=== PATIENT | female | born 1940 | race Caucasian/White ===

== ENCOUNTER 2017-01-10 10:36 | Emergency (ER) | payer MEDICARE, MEDICAID ==
[2017-01-10 10:56] VITALS: BP 123/72
--- NOTE | 2017-01-10 11:24 | EDM.PDOC ---
ED HISTORY OF PRESENT ILLNESS - General Chief Complaint: Respiratory Problem Stated Complaint: BAD COUGH Time Seen by Provider: 01/10/17 10:50 Source of Information: Reports: Patient History Limitations: Reports: No limitations - History of Present Illness INITIAL COMMENTS - FREE TEXT/NARRATIVE: Belinda presents to the emergency room today accompanied with her with complaints of a bad cough for 2 weeks. She reports she has tried guaifenesin with codeine albuterol nebulizer treatments 3 times a day and Mucinex. She reports she's had little to no relief. Her cough which she reports is croup- like cough is worse at certain times during the day usually in the morning. She denies fever or chills, denies ear pain or sore throat, feels mildly short of breath but no chest pain, palpitations or dyspnea. She denies abdominal pain, nausea vomiting, or diarrhea. Symptom Onset Date: 12/28/16 Timing/Duration: Reports: Week(s):, Constant, Gradual onset Severity: moderate Location, General: Reports: chest Quality: Reports: Ache Improves with: Reports: None Worsens with: Reports: None Associated Symptoms (General): Reports: cough w sputum, shortness of breath ( guaifenesin with codeine). Denies: fever/chills, nausea/vomiting, weakness Treatments [employer] [employer]: Reports: Other medication(s) (, albuterol nebulizers, Mucinex) - Related Data Allergies/ADRs: Allergies Allergy/AdvReac Type Severity Reaction Status Date / Time budesonide [From Pulmicort] Allergy Nausea Verified 01/10/17 10:42 cephalexin Allergy Diarrhea Verified 01/10/17 10:42 methocarbamol [From Robaxin] Allergy Rash Verified 01/10/17 10:42 nitrofurantoin Allergy Hives Verified 01/10/17 10:42 macrocrystalline [From Macrodantin] penicillin V Allergy Hives Verified 01/10/17 10:42 sulfamethoxazole Allergy Diarrhea Verified 01/10/17 10:42 [From Bactrim] trimethoprim [From Bactrim] Allergy Diarrhea Verified 01/10/17 10:42 Home Meds: Home Meds Alendronate Sodium [Fosamax] 70 mg PO WEEKLY 09/01/15 [History] Lisinopril 40 mg PO DAILY 09/01/15 [History] Phytonadione [Vitamin K] 100 mcg PO 1800 09/01/15 [History] Pravastatin [Pravachol] 20 mg PO BEDTIME 09/01/15 [History] carBAMazepine [Carbamazepine] 200 mg PO WITHBREAKFAST 09/01/15 [History] carBAMazepine [Carbamazepine] 400 mg PO BEDTIME 09/01/15 [History] Bisacodyl [Dulcolax] 5 mg PO DAILY 06/17/16 [History] Cholecalciferol (Vitamin D3) [Vitamin D3] 2,000 unit PO DAILY 06/17/16 [History] Hydrocodone/Acetaminophen [Hydrocodon-Acetaminophen 5-325] 1 each PO BID [History] Multivitamin with Minerals [Multiple Vitamin] 1 tab PO DAILY 06/17/16 [History] Warfarin [Coumadin] 7.5 mg PO ASDIRECTED 06/17/16 [History] Warfarin [Coumadin] 10 mg PO MOFR 06/17/16 [History] Albuterol Sulfate 1 ampule INH TID PRN 01/10/17 [History] Atenolol 25 mg PO 1800 01/10/17 [History] Atenolol 50 mg PO WITHBREAKFAST 01/10/17 [History] Eucalyptus/Menthol [Cough Drops] 1 lozenge PO Q1H PRN 01/10/17 [History] Iron Ps Cmplx/Vit B12/Fa [Poly-Iron 150 Forte] 1 cap PO DAILY 01/10/17 [History] guaiFENesin [Mucinex] 600 mg PO TID 01/10/17 [History] guaiFENesin/Codeine Phosphate [Guaifenesin AC Cough Syrup] 5 ml PO Q4HR PRN MDD 20 mL 01/10/17 [History] Past Medical History HEENT History: Reports: Impaired vision Cardiovascular History: Reports: Afib, High cholesterol Respiratory History: Reports: None Gastrointestinal History: Reports: Chronic constipation, GERD Genitourinary History: Reports: UTI, recurrent Neurological History: Reports: None Endocrine/Metabolic History: Reports: None Immunologic History: Reports: None Oncologic (Cancer) History: Reports: None Dermatologic History: Reports: None - Infectious Disease History Infectious Disease History: Reports: None - Past Surgical History HEENT Surgical History: Reports: Tonsillectomy Cardiovascular Surgical History: Reports: None GI Surgical History: Reports: Cholecystectomy, Colonoscopy Female Surgical History: Reports: section Musculoskeletal Surgical History: Reports: Knee replacement, Other (see below) Other Musculoskeletal Surgeries/Procedures:: left knee is due to be replaced. left knee pain with stiffness and weakness Social & Family History - Family History HEENT: Reports: None Cardiac: Reports: High cholesterol, Hypertension Respiratory: Reports: None GI: Reports: None : Reports: None OBGYN: Reports: None Musculoskeletal: Reports: None Neurological: Reports: None Psychiatric: Reports: Other (see below) (Sister had Alzheimer's) Endocrine/Metabolic: Reports: Diabetes, type II Hematologic: Reports: None Immunologic: Reports: None Dermatologic: Reports: None Oncologic: Reports: None - Tobacco Use Smoking Status *Q: Never Smoker Second Hand Smoke Exposure: No - Caffeine Use Caffeine Use: Reports: Coffee - Recreational Drug Use Recreational Drug Use: No ED ROS GENERAL - Review of Systems Review Of Systems: See Below Constitutional: Denies: fever, chills, weakness, night sweats HEENT: Reports: Glasses. Denies: Ear pain, Rhinitis, Throat pain, Throat swelling, Vertigo Respiratory: Reports: Shortness of Breath, Cough, Sputum Cardiovascular: Denies: Chest pain, Dyspnea on exertion, Edema, PND, Syncope Endocrine: Reports: high glucose GI/Abdominal: Reports: No symptoms Musculoskeletal: Reports: no symptoms Skin: Reports: no symptoms Neurological: Reports: No Symptoms Psychiatric: Reports: No symptoms Hematologic/Lymphatic: Reports: no symptoms Immunologic: Reports: no symptoms ED EXAM, GENERAL - Physical Exam Exam: See Below Exam Limited By: No limitations General Appearance: alert, no apparent distress, obese Eye Exam: bilateral eye: EOMI, PERRL Ears: normal external exam, normal canal, hearing grossly normal Ear Exam: left ear: TM normal, right ear: other (room and impaction right ear TM is not visualized) Nose: normal inspection Throat/Mouth: Normal inspection, Normal oropharynx, Normal voice, No airway compromise Head: atraumatic, normocephalic Neck: normal inspection, supple, non-tender. No: lymphadenopathy (L), lymphadenopathy (R), tender midline Respiratory/Chest: no respiratory distress, no accessory muscle use, decreased breath sounds (lung bases left), crackles (base left lung). No: stridor, retractions Cardiovascular: normal peripheral pulses, regular rate, rhythm, no murmur GI/Abdominal: normal bowel sounds, soft, non tender, no distention Back Exam: normal inspection Extremities: normal inspection, normal range of motion Neurological: alert, oriented, normal cognition Psychiatric: normal affect, normal mood Skin Exam: Warm, Dry, Intact, Normal color, No rash Course - Vital Signs Last Recorded V/S: Last Vital Signs Temp 97.2 F 01/10/17 10:53 Pulse 80 01/10/17 10:53 Resp 20 01/10/17 10:53 BP 123/72 01/10/17 10:53 Pulse Ox 95 01/10/17 10:53 - Orders/Labs/Meds Orders: Active Orders 24 hr Category Date Time Status CXR [Chest 2V] [CR] Stat Exams 01/10/17 11:14 Ordered Labs: Laboratory Tests 01/10/17 01/10/17 Range/Units 11:15 11:15 WBC 6.4 (5.0-10.0) 10^3/uL RBC 4.07 (3.80-5.50) 10^6/uL Hgb 11.8 L (12.0-16.0) g/dL Hct 36.0 L (37.0-47.0) % MCV 88.4 (82.0-92.0) fL MCH 29.0 (27.0-31.0) pg MCHC 32.8 (32.0-36.0) g/dL RDW 16.4 H (11.5-14.5) % Plt Count 230 (150-300) 10^3/uL MPV 8.2 (7.4-10.4) fL Neut % (Auto) 57.1 (50.0-70.0) % Lymph % (Auto) 11.3 L (20.0-40.0) % [place] % (Auto) 7.2 (2.0-8.0) % Eos % (Auto) 24.4 H (1.0-3.0) % Baso % (Auto) 0.0 (0.0-1.0) % Neut # (Auto) 3.6 (2.5-7.0) 10^3/uL Lymph # (Auto) 0.7 L (1.0-4.0) 10^3/uL [place] # (Auto) 0.5 (0.1-0.8) 10^3/uL Eos # (Auto) 1.6 H (0.1-0.3) 10^3/uL Baso # (Auto) 0.0 (0.0-0.1) 10^3/uL Sodium 139 (136-145) mmol/L Potassium 4.3 (3.3-5.3) mmol/L Chloride 99 (98-115) mmol/L Carbon Dioxide 28.0 (21.0-32.0) mmol/L BUN 11 (6-25) mg/dL Creatinine 0.69 (0.51-1.17) mg/dL Est Cr Clr Drug Dosing TNP Estimated GFR (MDRD) > 60 mL/min Glucose 107 (70-110) mg/dL Calcium 8.7 (8.7-10.3) mg/dL Meds: Medications Discontinued Medications Generic Name Dose Route Start Last Admin Trade Name Freq PRN Reason Stop Dose Admin Azithromycin 500 mg 01/10/17 11:55 01/10/17 12:04 Zithromax PO 01/10/17 11:56 500 mg ONETIME ONE Administration Prednisone 60 mg 01/10/17 11:54 01/10/17 12:04 Prednisone PO 01/10/17 11:55 60 mg ONETIME ONE Administration Departure - Departure Time of Disposition: 12:30 Disposition: Home, Self-Care 01 Condition: good Clinical Impression: Bronchitis Instructions: Acute Bronchitis, [id number] Forms: ED Department Discharge - My Orders Last 24 Hours: My Active Orders 01/10/17 11:14 CXR [Chest 2V] [CR] Stat - Assessment/Plan Last 24 Hours: My Active Orders 01/10/17 11:14 CXR [Chest 2V] [CR] Stat Assessment:: Bronchitis Plan: 1. Belinda been treating her symptoms now for approximately 2 weeks without significant relief with albuterol nebs Mucinex and guaifenesin with codeine, she was unable to continue the Pulmicort inhaler. We'll restart her on prednisone taper 60 mg a day, 60 mg tomorrow tapering down to 10 mg over the next 6 days. She continues to be symptomatic and I heard some mild crackles on the left lower bases will start her on azithromycin 500 mg today and she'll continue over the next 4 days with 250 mg. She may continue with her Mucinex and albuterol inhalers as needed. Recommend after completion of the course of steroids and antibiotic she followup with her primary care for recheck. Patient was discharged home.
[2017-01-10 11:48] LABS: CHLORIDE,CL 99 mmol/L (98-115); SODIUM,NA 139 mmol/L (136-145)
[2017-01-10] MEDS ORDERED: predniSONE 20 MG Tab PO ONE (11:54)
[2017-01-10] MEDS ORDERED: Azithromycin 250 MG Tab PO ONE (11:55)
== END 2017-01-10 12:28 | disposition home or self-care (01) ==
LOC: KA.ED 10:37
DX: J40 Bronchitis, not specified as acute or chronic (principal); I48.91 Unspecified atrial fibrillation; E78.00 Pure hypercholesterolemia, unspecified; K21.9 Gastro-esophageal reflux disease without esophagitis; Z98.890 Other specified postprocedural states; Z90.49 Acquired absence of other specified parts of digestive tract; Z88.1 Allergy status to other antibiotic agents; Z88.2 Allergy status to sulfonamides; Z79.899 Other long term (current) drug therapy; Z88.0 Allergy status to penicillin; Z79.01 Long term (current) use of anticoagulants; Z87.440 Personal history of urinary (tract) infections; Z88.8 Allergy status to other drugs, medicaments and biological substances
CPT/HCPCS: 36415; 71020; 80048; 85025; 99283; A9270

== ENCOUNTER 2017-01-23 09:21 | Emergency (ER) | payer MEDICARE, MEDICAID ==
[2017-01-23 09:34] VITALS: BP 133/94
--- NOTE | 2017-01-23 10:24 | EDM.PDOC ---
ED HPI LOWER BACK PAIN/INJURY - General Chief Complaint: Back Pain or Injury Stated Complaint: POSSIBLE KIDNEY STONE Time Seen by Provider: 01/23/17 10:08 Source of Information: Reports: Patient History Limitations: Reports: No limitations - History of Present Illness INITIAL COMMENTS - FREE TEXT/NARRATIVE: Patient presents with sharp low back pain that started this morning. She is concerned that it might be a kidney infection. She also has a history of tailbone fracture (6 months ago), and chronic SI joint pain. This feels like the SI joint pain but sharper than usual. She denies fever or dysuria. - Related Data Allergies/ADRs: Allergies Allergy/AdvReac Type Severity Reaction Status Date / Time budesonide [From Pulmicort] Allergy Nausea Verified 01/23/17 10:03 cephalexin Allergy Diarrhea Verified 01/23/17 10:03 methocarbamol [From Robaxin] Allergy Rash Verified 01/23/17 10:03 nitrofurantoin Allergy Hives Verified 01/23/17 10:03 macrocrystalline [From Macrodantin] penicillin V Allergy Hives Verified 01/23/17 10:03 sulfamethoxazole Allergy Diarrhea Verified 01/23/17 10:03 [From Bactrim] trimethoprim [From Bactrim] Allergy Diarrhea Verified 01/23/17 10:03 Home Meds: Home Meds Alendronate Sodium [Fosamax] 70 mg PO WEEKLY 09/01/15 [History] Lisinopril 40 mg PO DAILY 09/01/15 [History] Phytonadione [Vitamin K] 100 mcg PO 1800 09/01/15 [History] Pravastatin [Pravachol] 20 mg PO BEDTIME 09/01/15 [History] carBAMazepine [Carbamazepine] 200 mg PO WITHBREAKFAST 09/01/15 [History] carBAMazepine [Carbamazepine] 400 mg PO BEDTIME 09/01/15 [History] Bisacodyl [Dulcolax] 5 mg PO DAILY 06/17/16 [History] Cholecalciferol (Vitamin D3) [Vitamin D3] 2,000 unit PO DAILY 06/17/16 [History] Hydrocodone/Acetaminophen [Hydrocodon-Acetaminophen 5-325] 1 each PO BID [History] Multivitamin with Minerals [Multiple Vitamin] 1 tab PO DAILY 06/17/16 [History] Warfarin [Coumadin] 7.5 mg PO ASDIRECTED 06/17/16 [History] Albuterol Sulfate 1 ampule INH TID PRN 01/10/17 [History] Atenolol 25 mg PO 1800 01/10/17 [History] Atenolol 50 mg PO WITHBREAKFAST 01/10/17 [History] Eucalyptus/Menthol [Cough Drops] 1 lozenge PO Q1H PRN 01/10/17 [History] Iron Ps Cmplx/Vit B12/Fa [Poly-Iron 150 Forte] 1 cap PO DAILY 01/10/17 [History] guaiFENesin [Mucinex] 600 mg PO TID 01/10/17 [History] guaiFENesin/Codeine Phosphate [Guaifenesin AC Cough Syrup] 5 ml PO Q4HR PRN MDD 20 mL 01/10/17 [History] Past Medical History HEENT History: Reports: Impaired vision Cardiovascular History: Reports: Afib, High cholesterol Respiratory History: Reports: None Gastrointestinal History: Reports: Chronic constipation, GERD Genitourinary History: Reports: UTI, recurrent Neurological History: Reports: None Endocrine/Metabolic History: Reports: None Immunologic History: Reports: None Oncologic (Cancer) History: Reports: None Dermatologic History: Reports: None - Infectious Disease History Infectious Disease History: Reports: None - Past Surgical History HEENT Surgical History: Reports: Tonsillectomy Cardiovascular Surgical History: Reports: None GI Surgical History: Reports: Cholecystectomy, Colonoscopy Female Surgical History: Reports: section Musculoskeletal Surgical History: Reports: Knee replacement, Other (see below) Other Musculoskeletal Surgeries/Procedures:: left knee is due to be replaced. left knee pain with stiffness and weakness Social & Family History - Family History HEENT: Reports: None Cardiac: Reports: High cholesterol, Hypertension Respiratory: Reports: None GI: Reports: None : Reports: None OBGYN: Reports: None Musculoskeletal: Reports: None Neurological: Reports: None Psychiatric: Reports: Other (see below) (Sister had Alzheimer's) Endocrine/Metabolic: Reports: Diabetes, type II Hematologic: Reports: None Immunologic: Reports: None Dermatologic: Reports: None Oncologic: Reports: None - Tobacco Use Smoking Status *Q: Never Smoker Second Hand Smoke Exposure: No - Caffeine Use Caffeine Use: Reports: Coffee - Recreational Drug Use Recreational Drug Use: No ED ROS GENERAL - Review of Systems Review Of Systems: See Below Constitutional: Denies: fever, chills, diaphoresis HEENT: Denies: Throat pain, Vision change Respiratory: Denies: Shortness of Breath Cardiovascular: Denies: Chest pain, Lightheadedness, Syncope GI/Abdominal: Denies: Abdominal pain, Vomiting : Denies: dysuria, flank pain, frequency, pain, urgency Musculoskeletal: Reports: no symptoms Skin: Denies: cyanosis, jaundice, mottled, pallor, diaphoresis Neurological: Denies: Confusion, Dizziness, Headache Psychiatric: Denies: Agitation, Anxiety, Confusion ED EXAM,LOWER BACK PAIN/INJURY - Physical Exam Exam: See Below Exam Limited By: No limitations General Appearance: alert, WD/WN, no apparent distress Eye Exam: bilateral eye: EOMI, normal inspection, PERRL Ears: normal external exam, hearing grossly normal Nose: normal inspection, no blood Throat/Mouth: Normal inspection, Normal lips, Normal voice, No airway compromise Head: atraumatic, normocephalic Respiratory/Chest: no respiratory distress, lungs clear, normal breath sounds Cardiovascular: regular rate, rhythm, no murmur GI/Abdominal: soft, non tender, no organomegaly, no distention Back Exam: other (There is pain to palpation of right SI joint region only.). No: CVA tenderness (L), CVA tenderness (R), paraspinal tenderness, vertebral tenderness Neurological: alert, normal mood/affect, no motor/sensory deficits, oriented x 3 Psychiatric: normal affect, normal mood Skin Exam: Warm, Dry, Intact, Normal color, No rash Course - Vital Signs Last Recorded V/S: Last Vital Signs Temp 96.1 F 01/23/17 09:30 Pulse 68 01/23/17 09:30 Resp 16 01/23/17 09:30 BP 133/94 H 01/23/17 09:30 Pulse Ox 96 01/23/17 09:30 - Orders/Labs/Meds Labs: Laboratory Tests 01/23/17 01/23/17 01/23/17 Range/Units 09:30 10:00 10:00 WBC 6.8 (5.0-10.0) 10^3/uL RBC 4.06 (3.80-5.50) 10^6/uL Hgb 11.7 L (12.0-16.0) g/dL Hct 35.8 L (37.0-47.0) % MCV 88.3 (82.0-92.0) fL MCH 28.8 (27.0-31.0) pg MCHC 32.6 (32.0-36.0) g/dL RDW 15.6 H (11.5-14.5) % Plt Count 244 (150-300) 10^3/uL MPV 8.6 (7.4-10.4) fL Neut % (Auto) 65.7 (50.0-70.0) % Lymph % (Auto) 13.1 L (20.0-40.0) % [place] % (Auto) 9.0 H (2.0-8.0) % Eos % (Auto) 12.2 H (1.0-3.0) % Baso % (Auto) 0.0 (0.0-1.0) % Neut # (Auto) 4.5 (2.5-7.0) 10^3/uL Lymph # (Auto) 0.9 L (1.0-4.0) 10^3/uL [place] # (Auto) 0.6 (0.1-0.8) 10^3/uL Eos # (Auto) 0.8 H (0.1-0.3) 10^3/uL Baso # (Auto) 0.0 (0.0-0.1) 10^3/uL Sodium 139 (136-145) mmol/L Potassium 4.6 (3.3-5.3) mmol/L Chloride 100 (98-115) mmol/L Carbon Dioxide 27.8 (21.0-32.0) mmol/L BUN 12 (6-25) mg/dL Creatinine 0.63 (0.51-1.17) mg/dL Est Cr Clr Drug Dosing TNP Estimated GFR (MDRD) > 60 mL/min Glucose 114 H (70-110) mg/dL Calcium 9.1 (8.7-10.3) mg/dL Total Bilirubin 0.4 (0.2-1.0) mg/dL AST 20 (15-37) U/L ALT 23 (12-78) U/L Alkaline Phosphatase 105 (46-116) IU/L Total Protein 8.1 (6.4-8.2) g/dL Albumin 3.62 (3.00-4.80) g/dL Specimen Type Urinvoid Urine Color Yellow (YELLOW) Urine Appearance Clear (CLEAR) Urine pH 6.0 (5.0-9.0) Ur Specific [place] 1.015 (1.005-1.030) Urine Protein Negative (NEGATIVE) mg/dL Urine Glucose (UA) Negative (NEGATIVE) mg/dL Urine Ketones Negative (NEGATIVE) mg/dL Urine Occult Blood Trace-intact H (NEGATIVE) Urine Nitrite Negative (NEGATIVE) Urine Bilirubin Negative (NEGATIVE) Urine Urobilinogen 0.2 (0.2-1.0) E.U./dL Ur Leukocyte Esterase Trace H (NEGATIVE) Urine RBC 0-5 /HPF Urine WBC 0-5 /HPF Ur Epithelial Cells Occasional /LPF Urine Bacteria Rare (NONE TO FEW) /HPF Urine Yeast Few H (NEGATIVE) /HPF - Re-Assessments/Exams Free Text/Narrative Re-Assessment/Exam: 01/23/17 11:26 Labs are normal. Discussed findings and treatment plan with patient and her . Pt discharged in stable condition. Departure - Departure Time of Disposition: 11:23 Disposition: Home, Self-Care 01 Condition: good Clinical Impression: Chronic SI joint pain Forms: ED Department Discharge Additional Instructions: 1. Use a heating pack on the painful SI joint area with care to avoid skin burn. 2. Use your Tylenol 500-650 mg three times a day for pain as needed. 3. You can use your hydrocodone as directed for worse pain. 4. Follow up with Dr. Brandon next week if not improving to discuss SI joint injection.
[2017-01-23 10:49] LABS: CHLORIDE,CL 100 mmol/L (98-115); SODIUM,NA 139 mmol/L (136-145)
== END 2017-01-23 11:37 | disposition home or self-care (01) ==
LOC: KA.ED 09:21
DX: M53.3 Sacrococcygeal disorders, not elsewhere classified (principal); K21.9 Gastro-esophageal reflux disease without esophagitis; I48.91 Unspecified atrial fibrillation; E78.00 Pure hypercholesterolemia, unspecified; Z87.440 Personal history of urinary (tract) infections; Z96.652 Presence of left artificial knee joint; Z90.49 Acquired absence of other specified parts of digestive tract; Z88.0 Allergy status to penicillin; Z88.1 Allergy status to other antibiotic agents; Z88.8 Allergy status to other drugs, medicaments and biological substances; Z79.899 Other long term (current) drug therapy
CPT/HCPCS: 36415; 80053; 81001; 85025; 99282; 99283

== ENCOUNTER 2017-05-27 15:18 | Emergency (ER) | payer MEDICARE, MEDICAID ==
[2017-05-27 15:46] VITALS: BP 147/88
--- NOTE | 2017-05-27 15:58 | EDM.PDOC ---
ED HPI GENERAL MEDICAL PROBLEM - General Chief Complaint: General Stated Complaint: weakness Time Seen by Provider: 05/27/17 15:35 Source of Information: Reports: Patient History Limitations: Reports: No Limitations - History of Present Illness INITIAL COMMENTS - FREE TEXT/NARRATIVE: Patient presents via ambulance with weakness today. She says she has had some diarrhea for the past week and a half but only 3 times a day. This has resolved to once a day now. She is drinking 8 or more cups of water a day but says she is urinating a lot, several times a day. Today she felt weak in her legs. She uses a walker as needed but since her wasn't home she didn't want to fall so she called the ambulance. Normally she drives and could have driven in but her car has a flat tire. - Related Data Allergies Allergy/AdvReac Type Severity Reaction Status Date / Time budesonide [From Pulmicort] Allergy Nausea Verified 05/27/17 15:50 cephalexin Allergy Diarrhea Verified 05/27/17 15:50 methocarbamol [From Robaxin] Allergy Rash Verified 05/27/17 15:50 nitrofurantoin Allergy Hives Verified 05/27/17 15:50 macrocrystalline [From Macrodantin] penicillin V Allergy Hives Verified 05/27/17 15:50 sulfamethoxazole Allergy Diarrhea Verified 05/27/17 15:50 [From Bactrim] trimethoprim [From Bactrim] Allergy Diarrhea Verified 05/27/17 15:50 Home Meds: Home Meds Alendronate Sodium [Fosamax] 70 mg PO WEEKLY 09/01/15 [History] Lisinopril 40 mg PO DAILY 09/01/15 [History] Phytonadione [Vitamin K] 100 mcg PO 1800 09/01/15 [History] Pravastatin [Pravachol] 20 mg PO BEDTIME 09/01/15 [History] carBAMazepine [Carbamazepine] 200 mg PO WITHBREAKFAST 09/01/15 [History] carBAMazepine [Carbamazepine] 400 mg PO BEDTIME 09/01/15 [History] Bisacodyl [Dulcolax] 5 mg PO DAILY 06/17/16 [History] Cholecalciferol (Vitamin D3) [Vitamin D3] 2,000 unit PO DAILY 06/17/16 [History] Hydrocodone/Acetaminophen [Hydrocodon-Acetaminophen 5-325] 1 each PO BID [History] Multivitamin with Minerals [Multiple Vitamin] 1 tab PO DAILY 06/17/16 [History] Warfarin [Coumadin] 7.5 mg PO ASDIRECTED 06/17/16 [History] Albuterol Sulfate 1 ampule INH TID PRN 01/10/17 [History] Atenolol 25 mg PO 1800 01/10/17 [History] Eucalyptus/Menthol [Cough Drops] 1 lozenge PO Q1H PRN 01/10/17 [History] Iron Ps Cmplx/Vit B12/Fa [Poly-Iron 150 Forte] 1 cap PO DAILY 01/10/17 [History] Calcium Carb & Citrate/Vit D3 [Calcium + D3 ER Tablet] 1 each PO DAILY 05/27/17 [History] Fluticasone Propionate [Flonase Allergy Relief] 1 spray NASBOTH BID 05/27/17 [ History] amLODIPine [Norvasc] 10 mg PO DAILY 05/27/17 [History] Past Medical History HEENT History: Reports: Impaired Vision Cardiovascular History: Reports: Afib, High Cholesterol Respiratory History: Reports: None Gastrointestinal History: Reports: Chronic Constipation, GERD Genitourinary History: Reports: UTI, Recurrent Musculoskeletal History: Reports: Back Pain, Chronic Neurological History: Reports: None Endocrine/Metabolic History: Reports: None Immunologic History: Reports: None Oncologic (Cancer) History: Reports: None Dermatologic History: Reports: None - Infectious Disease History Infectious Disease History: Reports: None - Past Surgical History Female Surgical History: Reports: Section Musculoskeletal Surgical History: Reports: Knee Replacement, Other (See Below) Social & Family History - Family History HEENT: Reports: None Cardiac: Reports: High Cholesterol, Hypertension Respiratory: Reports: None GI: Reports: None : Reports: None OBGYN: Reports: None Musculoskeletal: Reports: None Neurological: Reports: None Psychiatric: Reports: Other (See Below) Endocrine/Metabolic: Reports: Diabetes, type II Hematologic: Reports: None Immunologic: Reports: None Dermatologic: Reports: None Oncologic: Reports: None - Tobacco Use Smoking Status *Q: Never Smoker Second Hand Smoke Exposure: No - Caffeine Use Caffeine Use: Reports: Coffee - Recreational Drug Use Recreational Drug Use: No ED ROS GENERAL - Review of Systems Review Of Systems: See Below Constitutional: Reports: Weakness. Denies: Fever, Chills, Malaise HEENT: Denies: Vision Change Respiratory: Reports: Cough (with eating when she doesn't chew well enough). Denies: Shortness of Breath Cardiovascular: Denies: Chest Pain, Lightheadedness, Syncope GI/Abdominal: Denies: Abdominal Pain, Anorexia, Nausea, Vomiting : Reports: Frequency. Denies: Dysuria, Flank Pain Musculoskeletal: Reports: No Symptoms Skin: Denies: Cyanosis, Jaundice, Mottled, Pallor, Diaphoresis Neurological: Denies: Confusion, Dizziness, Headache, Seizure, Syncope, Trouble Speaking Psychiatric: Denies: Agitation, Confusion Hematologic/Lymphatic: Reports: Easy Bleeding (she takes coumadin and stopped this two days ago per her PCP for a week so she can get an injection in her back next Wednesday.) ED EXAM, GENERAL - Physical Exam Exam: See Below Exam Limited By: No Limitations General Appearance: Alert, WD/WN, No Apparent Distress Eye Exam: Bilateral Eye: EOMI, Normal Inspection, PERRL Ears: Normal External Exam, Hearing Grossly Normal Nose: Normal Inspection, No Blood Throat/Mouth: Normal Inspection, Normal Lips, Normal Voice, No Airway Compromise Head: Atraumatic, Normocephalic Neck: Normal Inspection, Supple, Non-Tender, Full Range of Motion Respiratory/Chest: No Respiratory Distress, Crackles (mild vs atelectasis in bilat bases. This didn't clear with cough or multiple deep breaths). No: Rhonchi, Wheezing, Stridor, Accessory Muscle Use Cardiovascular: Normal Peripheral Pulses, Regular Rate, Rhythm, No Murmur Peripheral Pulses: 2+: Carotid (L), Carotid (R), Radial (L), Radial (R), Posterior Tibial (L), Posterior Tibial (R) GI/Abdominal: Normal Bowel Sounds, Soft, Non-Tender, No Organomegaly, No Distention, No Abnormal Bruit Back Exam: Normal Inspection, Full Range of Motion. No: CVA Tenderness (L), CVA Tenderness (R) Extremities: Normal Inspection, Normal Range of Motion, Non-Tender, Pedal Edema (minimal) Neurological: Alert, Oriented, Normal Cognition, No Motor/Sensory Deficits Psychiatric: Normal Affect, Normal Mood Skin Exam: Warm, Dry, Intact, Normal Color, No Rash Course - Vital Signs Last Recorded V/S: Last Vital Signs Temp 97.8 F 05/27/17 15:44 Pulse 102 H 05/27/17 15:44 Resp 18 05/27/17 15:44 BP 147/88 H 05/27/17 15:44 Pulse Ox 95 05/27/17 15:44 - Orders/Labs/Meds Orders: Active Orders 24 hr Category Date Time Status CXR [Chest 2V] [CR] Stat Exams 05/27/17 15:51 Ordered Labs: Laboratory Tests 05/27/17 05/27/17 05/27/17 Range/Units 15:30 15:35 15:35 WBC 6.0 (5.0-10.0) 10^3/uL RBC 3.71 L (3.80-5.50) 10^6/uL Hgb 11.6 L (12.0-16.0) g/dL Hct 34.6 L (37.0-47.0) % MCV 93.2 H (82.0-92.0) fL MCH 31.2 H (27.0-31.0) pg MCHC 33.4 (32.0-36.0) g/dL RDW 14.4 (11.5-14.5) % Plt Count 275 (150-300) 10^3/uL MPV 8.0 (7.4-10.4) fL Neut % (Auto) 65.4 (50.0-70.0) % Lymph % (Auto) 15.3 L (20.0-40.0) % [place] % (Auto) 10.1 H (2.0-8.0) % Eos % (Auto) 9.2 H (1.0-3.0) % Baso % (Auto) 0.0 (0.0-1.0) % Neut # (Auto) 3.9 (2.5-7.0) 10^3/uL Lymph # (Auto) 0.9 L (1.0-4.0) 10^3/uL [place] # (Auto) 0.6 (0.1-0.8) 10^3/uL Eos # (Auto) 0.6 H (0.1-0.3) 10^3/uL Baso # (Auto) 0.0 (0.0-0.1) 10^3/uL Sodium 129 L (136-145) mmol/L Potassium 4.2 (3.3-5.3) mmol/L Chloride 94 L (98-115) mmol/L Carbon Dioxide 26.1 (21.0-32.0) mmol/L BUN 7 (6-25) mg/dL Creatinine 0.61 (0.51-1.17) mg/dL Est Cr Clr Drug Dosing TNP Estimated GFR (MDRD) > 60 mL/min Glucose 102 (70-110) mg/dL Calcium 8.7 (8.7-10.3) mg/dL Specimen Type Urinvoid Urine Color Yellow (YELLOW) Urine Appearance Slightly cloudy H (CLEAR) Urine pH 6.5 (5.0-9.0) Ur Specific [place] 1.010 (1.005-1.030) Urine Protein Negative (NEGATIVE) mg/dL Urine Glucose (UA) Negative (NEGATIVE) mg/dL Urine Ketones Negative (NEGATIVE) mg/dL Urine Occult Blood Trace-lysed H (NEGATIVE) Urine Nitrite Negative (NEGATIVE) Urine Bilirubin Negative (NEGATIVE) Urine Urobilinogen 0.2 (0.2-1.0) E.U./dL Ur Leukocyte Esterase Small H (NEGATIVE) Urine RBC 0-5 /HPF Urine WBC 20-30 H /HPF Ur Epithelial Cells Few /LPF Urine Bacteria Moderate H (NONE TO FEW) /HPF - Re-Assessments/Exams Free Text/Narrative Re-Assessment/Exam: 05/27/17 16:49 CXR shows infiltrates in right lung. UA shows UTI. CBC is normal. Sodium is a little low. Discussed findings and treatment plan with patient. First dose of Levaquin given in ER and she will get someone to crab picker prescription tomorrow for her. Discussed with her that with the diarrhea and increased urination she is a little low on sodium and advised her to increase her salt intake a little for the next few days. Patient stable throughout ER course. Departure - Departure Time of Disposition: 16:53 Disposition: Home, Self-Care 01 Condition: Good Clinical Impression: UTI (urinary tract infection), bacterial CAP (community acquired pneumonia) Qualifiers: Laterality: right Lung location: unspecified part of lung Qualified Code(s): J18.9 - Pneumonia, unspecified organism - Discharge Information Forms: ED Department Discharge Additional Instructions: 1. Continue to drink 8 cups of water daily. 2. Take the Levaquin as directed. 3. Follow up with Dr. Brandon next Wednesday as scheduled, or sooner if worsening. - My Orders Last 24 Hours: My Active Orders 05/27/17 15:51 CXR [Chest 2V] [CR] Stat - Assessment/Plan Last 24 Hours: My Active Orders 05/27/17 15:51 CXR [Chest 2V] [CR] Stat
[2017-05-27 16:16] LABS: CHLORIDE,CL 94 mmol/L (98-115); SODIUM,NA 129 mmol/L (136-145)
[2017-05-27] MEDS ORDERED: Levofloxacin 500 MG Tab PO ONE (16:43)
== END 2017-05-27 18:10 | disposition home or self-care (01) ==
LOC: KA.ED 15:18
DX: J18.9 Pneumonia, unspecified organism (principal); N39.0 Urinary tract infection, site not specified; B96.89 Other specified bacterial agents as the cause of diseases classified elsewhere; H54.7 Unspecified visual loss; I48.91 Unspecified atrial fibrillation; E78.00 Pure hypercholesterolemia, unspecified; K21.9 Gastro-esophageal reflux disease without esophagitis; Z87.440 Personal history of urinary (tract) infections; Z88.8 Allergy status to other drugs, medicaments and biological substances; Z88.2 Allergy status to sulfonamides; Z88.0 Allergy status to penicillin; Z79.899 Other long term (current) drug therapy; Z96.659 Presence of unspecified artificial knee joint
CPT/HCPCS: 71020; 80048; 81001; 85025; 87086; 87088; 99284; A9270; 87186

== ENCOUNTER 2018-05-22 10:03 | Emergency (ER) | payer MEDICARE, MEDICAID ==
[2018-05-22 10:21] VITALS: BP 146/79
--- NOTE | 2018-05-22 10:43 | EDM.PDOC ---
ED HPI GENERAL MEDICAL PROBLEM - General Chief Complaint: Upper Extremity Injury/Pain Stated Complaint: RIGHT ARM PAIN Time Seen by Provider: 05/22/18 10:12 Source of Information: Reports: Patient History Limitations: Reports: No Limitations - History of Present Illness INITIAL COMMENTS - FREE TEXT/NARRATIVE: Patient is a 78-year-old female who presents to the emergency department this morning with a complaint of right forearm pain. Patient states last evening approximately 11 p.m. she went to turn a lamp on behind her and felt a pop in her forearm. Patient states that forearm pain developed. She took a hydrocodone, pain subsided and she was able to sleep during the night. Patient woke up this morning and pain, although diminished was still present. She decided to present to the emergency department for evaluation. Patient denies any chest pain, shortness of breath, headache, or fever. Onset: Sudden Onset Date: 05/21/18 Onset Time: 23:00 Duration: Hour(s): Location: Reports: Upper Extremity, Right Quality: Reports: Ache Severity: Mild Improves with: Reports: None Worsens with: Reports: Movement Context: Reports: Activity Associated Symptoms: Reports: No Other Symptoms Treatments GRANTS ANALYST: Reports: Acetaminophen, Other Medication(s), Other (see below) Other Treatments GRANTS ANALYST: heat - Related Data Allergies Allergy/AdvReac Type Severity Reaction Status Date / Time budesonide [From Pulmicort] Allergy Nausea Verified 05/22/18 10:22 cephalexin Allergy Diarrhea Verified 05/22/18 10:22 methocarbamol [From Robaxin] Allergy Rash Verified 05/22/18 10:22 nitrofurantoin Allergy Hives Verified 05/22/18 10:22 macrocrystalline [From Macrodantin] penicillin V Allergy Hives Verified 05/22/18 10:22 sulfamethoxazole Allergy Diarrhea Verified 05/22/18 10:22 [From Bactrim] trimethoprim [From Bactrim] Allergy Diarrhea Verified 05/22/18 10:22 Home Meds: Home Meds Alendronate Sodium [Fosamax] 70 mg PO WEEKLY 09/01/15 [History] Lisinopril 40 mg PO DAILY 09/01/15 [History] Phytonadione [Vitamin K] 100 mcg PO 1800 09/01/15 [History] Pravastatin [Pravachol] 20 mg PO BEDTIME 09/01/15 [History] carBAMazepine [Carbamazepine] 200 mg PO WITHBREAKFAST 09/01/15 [History] carBAMazepine [Carbamazepine] 400 mg PO BEDTIME 09/01/15 [History] Bisacodyl [Dulcolax] 5 mg PO DAILY 06/17/16 [History] Cholecalciferol (Vitamin D3) [Vitamin D3] 2,000 unit PO DAILY 06/17/16 [History] Hydrocodone/Acetaminophen [Hydrocodon-Acetaminophen 5-325] 1 each PO BID [History] Multivitamin with Minerals [Multiple Vitamin] 1 tab PO DAILY 06/17/16 [History] Warfarin [Coumadin] 7.5 mg PO ASDIRECTED 06/17/16 [History] Albuterol Sulfate 1 ampule INH TID PRN 01/10/17 [History] Atenolol 25 mg PO 1800 01/10/17 [History] Eucalyptus/Menthol [Cough Drops] 1 lozenge PO Q1H PRN 01/10/17 [History] Iron Ps Cmplx/Vit B12/Fa [Poly-Iron 150 Forte] 1 cap PO DAILY 01/10/17 [History] Calcium Carb & Citrate/Vit D3 [Calcium + D3 ER Tablet] 1 each PO DAILY 05/27/17 [History] Fluticasone Propionate [Flonase Allergy Relief] 1 spray NASBOTH BID 05/27/17 [ History] amLODIPine [Norvasc] 10 mg PO DAILY 05/27/17 [History] Past Medical History HEENT History: Reports: Impaired Vision Cardiovascular History: Reports: Afib, High Cholesterol Respiratory History: Reports: None Gastrointestinal History: Reports: Chronic Constipation, GERD Genitourinary History: Reports: UTI, Recurrent Musculoskeletal History: Reports: Back Pain, Chronic Neurological History: Reports: None Endocrine/Metabolic History: Reports: None Hematologic History: Reports: Iron Deficiency Immunologic History: Reports: None Oncologic (Cancer) History: Reports: None Dermatologic History: Reports: None - Infectious Disease History Infectious Disease History: Reports: None - Past Surgical History Head Surgeries/Procedures: Reports: None Female Surgical History: Reports: Section Musculoskeletal Surgical History: Reports: Knee Replacement, Other (See Below) Social & Family History - Family History HEENT: Reports: None Cardiac: Reports: High Cholesterol, Hypertension Respiratory: Reports: None GI: Reports: None : Reports: None OBGYN: Reports: None Musculoskeletal: Reports: None Neurological: Reports: None Psychiatric: Reports: Other (See Below) Endocrine/Metabolic: Reports: Diabetes, type II Hematologic: Reports: None Immunologic: Reports: None Dermatologic: Reports: None Oncologic: Reports: None - Tobacco Use Smoking Status *Q: Former Smoker Used Tobacco, but Quit: Yes Month/Year Tobacco Last Used: February Second Hand Smoke Exposure: No - Caffeine Use Caffeine Use: Reports: Coffee - Recreational Drug Use Recreational Drug Use: No Review of Systems - Review of Systems Review Of Systems: ROS reveals no pertinent complaints other than HPI. Constitutional: Reports: No Symptoms Eyes: Reports: No Symptoms Ears: Reports: No Symptoms Nose: Reports: No Symptoms Mouth/Throat: Reports: No Symptoms Respiratory: Reports: No Symptoms Cardiovascular: Reports: No Symptoms GI/Abdominal: Reports: No Symptoms Genitourinary: Reports: No Symptoms Musculoskeletal: Reports: Arm Pain (Right forearm) Skin: Reports: No Symptoms Neurological: Reports: No Symptoms Psychiatric: Reports: No Symptoms ED EXAM, GENERAL - Physical Exam Exam: See Below Exam Limited By: No Limitations General Appearance: Alert, WD/WN, No Apparent Distress Throat/Mouth: Normal Inspection, Normal Oropharynx, No Airway Compromise Head: Atraumatic, Normocephalic Neck: Normal Inspection, Supple, Non-Tender Respiratory/Chest: No Respiratory Distress Back Exam: Normal Inspection Extremities: Other (Right forearm, proximal aspect tenderness to palpation, and range of motion. No elbow or wrist involvement, no ecchymosis, no edema, and no deformity.) Neurological: Alert, Oriented, Normal Cognition Psychiatric: Normal Affect, Normal Mood Skin Exam: Warm, Dry, Intact, Normal Color, No Rash Course - Vital Signs Last Recorded V/S: Last Vital Signs Temp 96.9 F 05/22/18 10:18 Pulse 79 05/22/18 10:18 Resp 20 05/22/18 10:18 BP 146/79 H 05/22/18 10:18 Pulse Ox 98 05/22/18 10:18 Departure - Departure Time of Disposition: 10:45 Disposition: Home, Self-Care 01 Condition: Good Clinical Impression: Muscle strain of right forearm Qualifiers: Encounter type: initial encounter Qualified Code(s): S56.911A - Strain of unspecified muscles, fascia and tendons at forearm level, right arm, initial encounter - Discharge Information Instructions: Muscle Strain, [id number], Muscle Strain Referrals: Adonis Zuniga, BRENDA [Primary Care Provider] - Forms: ED Department Discharge Additional Instructions: Follow-up with PCP. Return to emergency sooner if symptoms continue or worsen. - Assessment/Plan Assessment:: Right forearm muscle strain Plan: Follow-up with PCP
== END 2018-05-22 11:00 | disposition home or self-care (01) ==
LOC: KA.ED 10:03
DX: S56.911A Strain of unspecified muscles, fascia and tendons at forearm level, right arm, initial encounter (principal); Z79.899 Other long term (current) drug therapy; Z88.0 Allergy status to penicillin; Z88.1 Allergy status to other antibiotic agents; Z88.8 Allergy status to other drugs, medicaments and biological substances; X58.XXXA Exposure to other specified factors, initial encounter
CPT/HCPCS: 99283

== ENCOUNTER 2018-10-29 10:07 | Emergency (ER) | payer MEDICARE, MEDICAID ==
[2018-10-29 10:18] VITALS: BP 127/69
--- NOTE | 2018-10-29 10:53 | EDM.PDOC ---
ED HPI GENERAL MEDICAL PROBLEM - General Chief Complaint: General Stated Complaint: BAD COUGH Time Seen by Provider: 10/29/18 10:32 Source of Information: Reports: Patient History Limitations: Reports: No Limitations - History of Present Illness INITIAL COMMENTS - FREE TEXT/NARRATIVE: Patient is a 78-year-old female who presents to the emergency department this morning with a complaint of persistent cough. States that cough is been going on for approximately a week and getting worse. Feels a little short of breath. Patient did not take temperature, but does feel like she's had a fever. States cough is nonproductive. Patient denies chest pain, nausea, vomiting, diarrhea, or family members with similar symptoms. Onset: Gradual Duration: Day(s): Location: Reports: Chest Quality: Reports: Other (Denies chest pain) Improves with: Reports: None Worsens with: Reports: Other (Cough) Associated Symptoms: Reports: Cough, Fever/Chills. Denies: Chest Pain, cough w sputum, Nausea/Vomiting, Shortness of Breath Treatments GLASSIE: Reports: Acetaminophen, Other (see below) Other Treatments GLASSIE: cough medicine - Related Data Allergies Allergy/AdvReac Type Severity Reaction Status Date / Time budesonide [From Pulmicort] Allergy Nausea Verified 05/22/18 10:22 cephalexin Allergy Diarrhea Verified 05/22/18 10:22 methocarbamol [From Robaxin] Allergy Rash Verified 05/22/18 10:22 nitrofurantoin Allergy Hives Verified 05/22/18 10:22 macrocrystalline [From Macrodantin] penicillin V Allergy Hives Verified 05/22/18 10:22 sulfamethoxazole Allergy Diarrhea Verified 05/22/18 10:22 [From Bactrim] trimethoprim [From Bactrim] Allergy Diarrhea Verified 05/22/18 10:22 Home Meds: Home Meds Alendronate Sodium [Fosamax] 70 mg PO WEEKLY 09/01/15 [History] Lisinopril 40 mg PO DAILY 09/01/15 [History] Phytonadione [Vitamin K] 100 mcg PO 1800 09/01/15 [History] Pravastatin [Pravachol] 20 mg PO BEDTIME 09/01/15 [History] carBAMazepine [Carbamazepine] 200 mg PO WITHBREAKFAST 09/01/15 [History] carBAMazepine [Carbamazepine] 400 mg PO BEDTIME 11/22/15 [History] Bisacodyl [Dulcolax] 5 mg PO DAILY 06/17/16 [History] Cholecalciferol (Vitamin D3) [Vitamin D3] 2,000 unit PO DAILY 06/17/16 [History] Hydrocodone/Acetaminophen [Hydrocodon-Acetaminophen 5-325] 1 each PO BID [History] Multivitamin with Minerals [Multiple Vitamin] 1 tab PO DAILY 06/17/16 [History] Warfarin [Coumadin] 7.5 mg PO ASDIRECTED 06/17/16 [History] Albuterol Sulfate 1 ampule INH TID PRN 01/10/17 [History] Atenolol 25 mg PO 1800 01/10/17 [History] Eucalyptus/Menthol [Cough Drops] 1 lozenge PO Q1H PRN 01/10/17 [History] Iron Ps Cmplx/Vit B12/Fa [Poly-Iron 150 Forte] 1 cap PO DAILY 01/10/17 [History] Calcium Carb & Citrate/Vit D3 [Calcium + D3 ER Tablet] 1 each PO DAILY 05/27/17 [History] Fluticasone Propionate [Flonase Allergy Relief] 1 spray NASBOTH BID 05/27/17 [ History] amLODIPine [Norvasc] 10 mg PO DAILY 05/27/17 [History] Past Medical History HEENT History: Reports: Impaired Vision Cardiovascular History: Reports: Afib, High Cholesterol Respiratory History: Reports: None Gastrointestinal History: Reports: Chronic Constipation, GERD Genitourinary History: Reports: UTI, Recurrent Musculoskeletal History: Reports: Back Pain, Chronic Neurological History: Reports: None Endocrine/Metabolic History: Reports: None Hematologic History: Reports: Iron Deficiency Immunologic History: Reports: None Oncologic (Cancer) History: Reports: None Dermatologic History: Reports: None - Infectious Disease History Infectious Disease History: Reports: None - Past Surgical History Head Surgeries/Procedures: Reports: None Female Surgical History: Reports: Section Musculoskeletal Surgical History: Reports: Knee Replacement, Other (See Below) Social & Family History - Family History HEENT: Reports: None Cardiac: Reports: High Cholesterol, Hypertension Respiratory: Reports: None GI: Reports: None : Reports: None OBGYN: Reports: None Musculoskeletal: Reports: None Neurological: Reports: None Psychiatric: Reports: Other (See Below) Endocrine/Metabolic: Reports: Diabetes, type II Hematologic: Reports: None Immunologic: Reports: None Dermatologic: Reports: None Oncologic: Reports: None - Caffeine Use Caffeine Use: Reports: Coffee ED ROS GENERAL - Review of Systems Review Of Systems: ROS reveals no pertinent complaints other than HPI. Constitutional: Reports: Fever, Chills HEENT: Reports: No Symptoms Respiratory: Reports: Shortness of Breath, Cough Cardiovascular: Reports: No Symptoms Endocrine: Reports: No Symptoms GI/Abdominal: Reports: No Symptoms : Reports: No Symptoms Musculoskeletal: Reports: No Symptoms Skin: Reports: No Symptoms Neurological: Reports: No Symptoms Psychiatric: Reports: No Symptoms Hematologic/Lymphatic: Reports: No Symptoms Immunologic: Reports: No Symptoms ED EXAM, GENERAL - Physical Exam Exam: See Below Exam Limited By: No Limitations General Appearance: Alert, WD/WN, No Apparent Distress Nose: Normal Inspection, Other (Mild bilateral mucosal erythema) Throat/Mouth: Normal Inspection, Normal Oropharynx, No Airway Compromise Head: Atraumatic, Normocephalic Neck: Normal Inspection, Supple, Non-Tender Respiratory/Chest: No Respiratory Distress, No Accessory Muscle Use, Chest Non- Tender, Rhonchi (Apical clears with cough) Cardiovascular: Regular Rate, Rhythm, No Murmur GI/Abdominal: Normal Bowel Sounds, Soft, Non-Tender Back Exam: Normal Inspection. No: CVA Tenderness (L), CVA Tenderness (R) Extremities: Normal Inspection, No Pedal Edema Neurological: Alert, Oriented, Normal Cognition Psychiatric: Normal Affect, Normal Mood Skin Exam: Warm, Dry, Intact, Normal Color, No Rash Lymphatic: No Adenopathy Course - Vital Signs Last Recorded V/S: Last Vital Signs Temp 97.6 F 10/29/18 10:15 Pulse 81 10/29/18 10:15 Resp 20 10/29/18 10:15 BP 127/69 10/29/18 10:15 Pulse Ox 94 L 10/29/18 10:15 - Orders/Labs/Meds Orders: Active Orders 24 hr Category Date Time Status Chest 2V [CR] Stat Exams 10/29/18 10:32 Ordered INFLUENZA A+B AG SCREEN [RM] Stat Lab 10/29/18 10:32 Ordered - Radiology Interpretation Free Text/Narrative:: Chest x-ray shows Right upper lobe pneumonia - Re-Assessments/Exams Free Text/Narrative Re-Assessment/Exam: 10/29/18 11:39 Patient afebrile, vital signs stable, influenza negative. patient given 1 g IM Rocephin and 500 mg Zithromax here. Patient will follow-up with PCP on Wednesday. 10/29/18 11:41 Departure - Departure Time of Disposition: 11:40 Disposition: Home, Self-Care 01 Condition: Good Clinical Impression: CAP (community acquired pneumonia) Qualifiers: Laterality: right Lung location: unspecified part of lung Qualified Code(s): J18.9 - Pneumonia, unspecified organism - Discharge Information Instructions: Community-Acquired Pneumonia, Adult, [id number] Referrals: Adonis Zuniga PA-C [Primary Care Provider] - Additional Instructions: Follow-up at [facility] on Wednesday. Take medication as prescribed. Return to the emergency department sooner if symptoms continue or worsen. - My Orders Last 24 Hours: My Active Orders 10/29/18 10:32 Chest 2V [CR] Stat INFLUENZA A+B AG SCREEN [RM] Stat - Assessment/Plan Last 24 Hours: My Active Orders 10/29/18 10:32 Chest 2V [CR] Stat INFLUENZA A+B AG SCREEN [RM] Stat Assessment:: Pneumonia Plan: Follow-up with PCP on Wednesday
--- NOTE | 2018-10-29 11:17 | CR ---
[id number] RAD/RAD Chest PA And Lateral EXAM: FRONTAL AND LATERAL CHEST INDICATION: Upper respiratory infection and weakness. COMPARISON: May 27, 2017. DISCUSSION: There is cardiomegaly with mild central vascular congestion which is less than on the previous examination. Mild superimposed infiltrates are suggested in the right upper lobe. IMPRESSION: 1. Mild residual or recurrent right upper lobe infiltrates. 2. Mild congestive heart failure. Jg Keating MD 10/29/18 1116 Thank you for allowing us to participate in the care of your patient.
[2018-10-29] MEDS ORDERED: Azithromycin 250 MG Tab PO ONE ×2 (11:36→11:37)
[2018-10-29] MEDS ORDERED: cefTRIAXone 1 GM Vial IM ONE (11:36)
[2018-10-29] MEDS ORDERED: Lidocaine 1% 20 ML MDV ONE (11:47)
== END 2018-10-29 12:10 | disposition home or self-care (01) ==
LOC: KA.ED 10:07
DX: J18.9 Pneumonia, unspecified organism (principal); I48.91 Unspecified atrial fibrillation; E78.00 Pure hypercholesterolemia, unspecified; K21.9 Gastro-esophageal reflux disease without esophagitis; Z87.440 Personal history of urinary (tract) infections; Z79.01 Long term (current) use of anticoagulants; Z79.899 Other long term (current) drug therapy; Z96.659 Presence of unspecified artificial knee joint; Z98.890 Other specified postprocedural states
CPT/HCPCS: 71046; 87804; 96372; 99284; A9270-GY; J0696

== ENCOUNTER 2019-03-19 09:28 | Emergency (ER) | payer MEDICARE, MEDICAID ==
[2019-03-19 10:05] VITALS: BP 171/93
--- NOTE | 2019-03-19 10:54 | EDM.PDOC ---
ED HPI GENERAL MEDICAL PROBLEM - General Chief Complaint: Upper Extremity Injury/Pain Stated Complaint: LEFT ARM INJURY Time Seen by Provider: 03/19/19 10:27 Source of Information: Reports: Patient, Significant Other History Limitations: Reports: No Limitations - History of Present Illness INITIAL COMMENTS - FREE TEXT/NARRATIVE: Patient presents with left elbow pain for the past several days. She denies any fall or other injury. She saw her PCP, RACHELLE Smith 3 days ago and was given Diclofenac tabs and gel for it. It hurt quite badly today so she came in. Left Elbow Pain Score (Numeric/FACES): 5 - Related Data Allergies Allergy/AdvReac Type Severity Reaction Status Date / Time budesonide [From Pulmicort] Allergy Nausea Verified 03/19/19 09:56 cephalexin Allergy Diarrhea Verified 03/19/19 09:56 methocarbamol [From Robaxin] Allergy Rash Verified 03/19/19 09:56 nitrofurantoin Allergy Hives Verified 03/19/19 09:56 macrocrystalline [From Macrodantin] penicillin V Allergy Hives Verified 03/19/19 09:56 sulfamethoxazole Allergy Diarrhea Verified 03/19/19 09:56 [From Bactrim] trimethoprim [From Bactrim] Allergy Diarrhea Verified 03/19/19 09:56 Home Meds: Home Meds Alendronate Sodium [Fosamax] 70 mg PO WEEKLY 09/01/15 [History] Phytonadione [Vitamin K] 100 mcg PO 1800 09/01/15 [History] Pravastatin [Pravachol] 20 mg PO BEDTIME 09/01/15 [History] carBAMazepine [Carbamazepine] 200 mg PO WITHBREAKFAST 09/01/15 [History] carBAMazepine [Carbamazepine] 400 mg PO BEDTIME 09/01/15 [History] Bisacodyl [Dulcolax] 5 mg PO DAILY 06/17/16 [History] Cholecalciferol (Vitamin D3) [Vitamin D3] 2,000 unit PO DAILY 06/17/16 [History] Multivitamin with Minerals [Multiple Vitamin] 1 tab PO DAILY 06/17/16 [History] Warfarin [Coumadin] 7.5 mg PO ASDIRECTED 06/17/16 [History] Albuterol Sulfate 1 ampule INH TID PRN 01/10/17 [History] Atenolol 25 mg PO 1800 01/10/17 [History] Iron Ps Cmplx/Vit B12/Fa [Poly-Iron 150 Forte] 1 cap PO DAILY 01/10/17 [History] Calcium Carb & Citrate/Vit D3 [Calcium + D3 ER Tablet] 1 each PO DAILY 05/27/17 [History] Fluticasone Propionate [Flonase Allergy Relief] 1 spray NASBOTH BID 05/27/17 [ History] amLODIPine [Norvasc] 10 mg PO DAILY 05/27/17 [History] Diclofenac Sodium [Voltaren 1% Gel] 1 applic TOP BID 03/19/19 [History] Diclofenac Sodium [Voltaren] 75 mg PO BIDMEALS 03/19/19 [History] Losartan [Cozaar] 100 mg PO DAILY 03/19/19 [History] Past Medical History HEENT History: Reports: Impaired Vision Cardiovascular History: Reports: Afib, High Cholesterol Respiratory History: Reports: Asthma Gastrointestinal History: Reports: Chronic Constipation, GERD Genitourinary History: Reports: UTI, Recurrent Musculoskeletal History: Reports: Arthritis, Back Pain, Chronic Neurological History: Reports: None Endocrine/Metabolic History: Reports: None Hematologic History: Reports: Iron Deficiency Immunologic History: Reports: None Oncologic (Cancer) History: Reports: None Dermatologic History: Reports: None - Infectious Disease History Infectious Disease History: Reports: None - Past Surgical History Head Surgeries/Procedures: Reports: None Female Surgical History: Reports: Section Musculoskeletal Surgical History: Reports: Knee Replacement Social & Family History - Family History HEENT: Reports: None Cardiac: Reports: High Cholesterol, Hypertension Respiratory: Reports: None GI: Reports: None : Reports: None OBGYN: Reports: None Musculoskeletal: Reports: None Neurological: Reports: None Psychiatric: Reports: Other (See Below) Endocrine/Metabolic: Reports: Diabetes, type II Hematologic: Reports: None Immunologic: Reports: None Dermatologic: Reports: None Oncologic: Reports: None - Tobacco Use Smoking Status *Q: Never Smoker - Caffeine Use Caffeine Use: Reports: Coffee, Soda - Recreational Drug Use Recreational Drug Use: No Review of Systems - Review of Systems Review Of Systems: See Below Constitutional: Denies: Chills, Fever, Weakness Eyes: Denies: Vision Change Ears: Reports: No Symptoms Nose: Reports: No Symptoms Mouth/Throat: Reports: No Symptoms Respiratory: Denies: Shortness of Breath, Cough Cardiovascular: Reports: Irregular Heart Rate (chronic; on warfarin). Denies: Chest Pain, Lightheadedness, Syncope GI/Abdominal: Denies: Abdominal Pain, Diarrhea, Nausea, Vomiting Genitourinary: Denies: Dysuria Musculoskeletal: Denies: Neck Pain, Shoulder Pain, Hand Pain Skin: Denies: Cyanosis, Jaundice, Mottled, Pallor, Diaphoresis Neurological: Denies: Confusion, Seizure, Syncope, Trouble Speaking Psychiatric: Denies: Confusion ED EXAM, GENERAL - Physical Exam Exam: See Below Exam Limited By: No Limitations General Appearance: Alert, WD/WN, No Apparent Distress Eye Exam: Bilateral Eye: EOMI, Normal Inspection, PERRL Ears: Normal External Exam, Hearing Grossly Normal Nose: Normal Inspection, No Blood Throat/Mouth: Normal Inspection, Normal Lips, Normal Voice, No Airway Compromise Head: Atraumatic, Normocephalic Neck: Normal Inspection, Full Range of Motion Respiratory/Chest: No Respiratory Distress, Lungs Clear, Normal Breath Sounds, No Accessory Muscle Use Cardiovascular: Irregularly Irregular GI/Abdominal: Non-Tender Back Exam: Normal Inspection, Full Range of Motion. No: CVA Tenderness (L), CVA Tenderness (R) Extremities: Normal Range of Motion (without pain), Other (palpation of lateral elbow produces pain at the triceps insertion consistent with tendonitis. No other tender areas, crepitus or deformity.). No: Increased Warmth, Mottled, Pallor, Redness Neurological: Alert, Oriented, Normal Cognition (at baseline), No Motor/Sensory Deficits Psychiatric: Normal Affect, Normal Mood Skin Exam: Warm, Dry, Intact, Normal Color, No Rash Course - Vital Signs Last Recorded V/S: Last Vital Signs Temp 97.8 F 03/19/19 09:45 Pulse 76 03/19/19 09:45 Resp 16 03/19/19 09:45 BP 171/93 H 03/19/19 09:45 Pulse Ox 94 L 03/19/19 09:45 - Re-Assessments/Exams Free Text/Narrative Re-Assessment/Exam: 03/19/19 11:01 Discussed findings and recommendations with patient. She is receptive and agrees. Discharged to home in stable condition. Departure - Departure Time of Disposition: 10:45 Disposition: Home, Self-Care 01 Condition: Good Clinical Impression: Elbow tendonitis - Discharge Information Instructions: Tendinitis, [id number] Referrals: Adonis Zuniga PA-C [Primary Care Provider] - Additional Instructions: 1. Continue the medications Adonis More gave you. 2. You can try alternating warm and cold packs twice a day on the elbow. Make sure not to put a hot pack directly on the skin. 3. Try elbow flexion and extension (range of motion) exercises 20-30 cycles about 3 times a day to keep the elbow mobile and loosened up. 4. Try to avoid resting the elbow on armrests for long periods of time. 5. Follow up with Adonis in a week if not improving.
== END 2019-03-19 10:55 | disposition home or self-care (01) ==
LOC: KA.ED 09:28
DX: M77.9 Enthesopathy, unspecified (principal); I48.91 Unspecified atrial fibrillation; E78.00 Pure hypercholesterolemia, unspecified; J45.909 Unspecified asthma, uncomplicated; Z79.899 Other long term (current) drug therapy; Z88.8 Allergy status to other drugs, medicaments and biological substances; Z88.0 Allergy status to penicillin; Z88.1 Allergy status to other antibiotic agents
CPT/HCPCS: 99283

== ENCOUNTER 2019-03-26 10:04 | Emergency (ER) | payer MEDICARE, MEDICAID ==
[2019-03-26 10:31] VITALS: BP 144/88
--- NOTE | 2019-03-26 10:45 | EDM.PDOC ---
ED HPI GENERAL MEDICAL PROBLEM - General Chief Complaint: Upper Extremity Injury/Pain Stated Complaint: left elbow pain Time Seen by Provider: 03/26/19 10:15 Source of Information: Reports: Patient, Family, Other ( jose) - History of Present Illness INITIAL COMMENTS - FREE TEXT/NARRATIVE: patient presents for left elbow pain that is intermittent for one month. No recent fall or trauma. She admits she carried a very heavy grocery bag on her left elbow approximately one month right before she started all of this left pain. She states the pain is sharp and starts at her elbow and shoots up and down her arm at times. She notes having hx of osteoporosis and osteoarthritis with hx of right total knee replacement and she states she needs her left shoulder replaced but the orthopedic surgeon said she is not a candidate at this time for shoulder surgery. She states the pain is worse at night time, she has seen her PCP for this, was given NSAIDs topical and oral and she has been seeing PT in town which seems to be really helping her pain. left elbow Pain Score (Numeric/FACES): 5 - Related Data Allergies Allergy/AdvReac Type Severity Reaction Status Date / Time budesonide [From Pulmicort] Allergy Nausea Verified 03/26/19 10:07 cephalexin Allergy Diarrhea Verified 03/26/19 10:07 methocarbamol [From Robaxin] Allergy Rash Verified 03/26/19 10:07 nitrofurantoin Allergy Hives Verified 03/26/19 10:07 macrocrystalline [From Macrodantin] penicillin V Allergy Hives Verified 03/26/19 10:07 sulfamethoxazole Allergy Diarrhea Verified 03/26/19 10:07 [From Bactrim] trimethoprim [From Bactrim] Allergy Diarrhea Verified 03/26/19 10:07 Home Meds: Home Meds Alendronate Sodium [Fosamax] 70 mg PO WEEKLY 09/01/15 [History] Phytonadione [Vitamin K] 100 mcg PO 1800 09/01/15 [History] Pravastatin [Pravachol] 20 mg PO BEDTIME 09/01/15 [History] carBAMazepine [Carbamazepine] 200 mg PO WITHBREAKFAST 09/01/15 [History] carBAMazepine [Carbamazepine] 400 mg PO BEDTIME 09/01/15 [History] Bisacodyl [Dulcolax] 5 mg PO DAILY 06/17/16 [History] Cholecalciferol (Vitamin D3) [Vitamin D3] 2,000 unit PO DAILY 06/17/16 [History] Multivitamin with Minerals [Multiple Vitamin] 1 tab PO DAILY 06/17/16 [History] Warfarin [Coumadin] 7.5 mg PO ASDIRECTED 06/17/16 [History] Albuterol Sulfate 1 ampule INH TID PRN 01/10/17 [History] Atenolol 25 mg PO 1800 01/10/17 [History] Iron Ps Cmplx/Vit B12/Fa [Poly-Iron 150 Forte] 1 cap PO DAILY 01/10/17 [History] Calcium Carb & Citrate/Vit D3 [Calcium + D3 ER Tablet] 1 each PO DAILY 05/27/17 [History] Fluticasone Propionate [Flonase Allergy Relief] 1 spray NASBOTH BID 05/27/17 [ History] amLODIPine [Norvasc] 10 mg PO DAILY 05/27/17 [History] Diclofenac Sodium [Voltaren 1% Gel] 1 applic TOP BID 03/19/19 [History] Diclofenac Sodium [Voltaren] 75 mg PO BIDMEALS 03/19/19 [History] Losartan [Cozaar] 100 mg PO DAILY 03/19/19 [History] Past Medical History HEENT History: Reports: Impaired Vision Cardiovascular History: Reports: Afib, High Cholesterol Respiratory History: Reports: Asthma Gastrointestinal History: Reports: Chronic Constipation, GERD Genitourinary History: Reports: UTI, Recurrent Musculoskeletal History: Reports: Arthritis, Back Pain, Chronic Neurological History: Reports: None Endocrine/Metabolic History: Reports: None Hematologic History: Reports: Iron Deficiency Immunologic History: Reports: None Oncologic (Cancer) History: Reports: None Dermatologic History: Reports: None - Infectious Disease History Infectious Disease History: Reports: None - Past Surgical History Head Surgeries/Procedures: Reports: None Female Surgical History: Reports: Section Musculoskeletal Surgical History: Reports: Knee Replacement Social & Family History - Family History HEENT: Reports: None Cardiac: Reports: High Cholesterol, Hypertension Respiratory: Reports: None GI: Reports: None : Reports: None OBGYN: Reports: None Musculoskeletal: Reports: None Neurological: Reports: None Psychiatric: Reports: Other (See Below) Endocrine/Metabolic: Reports: Diabetes, type II Hematologic: Reports: None Immunologic: Reports: None Dermatologic: Reports: None Oncologic: Reports: None - Tobacco Use Smoking Status *Q: Never Smoker Second Hand Smoke Exposure: No - Caffeine Use Caffeine Use: Reports: Coffee, Soda - Recreational Drug Use Recreational Drug Use: No Review of Systems - Review of Systems Review Of Systems: ROS reveals no pertinent complaints other than HPI. Musculoskeletal: Reports: Other (left elbow pain) ED EXAM, GENERAL - Physical Exam Exam: See Below (left elbow, full ROM w/o pain, no crepitus, not warmth not swollen, no redness) Exam Limited By: No Limitations General Appearance: Alert, WD/WN, No Apparent Distress Head: Atraumatic, Normocephalic Neck: Normal Inspection, Supple, Non-Tender Respiratory/Chest: No Respiratory Distress, Lungs Clear, Normal Breath Sounds Cardiovascular: Normal Peripheral Pulses, Irregularly Irregular, Other (hx of a fib) Peripheral Pulses: 2+: Radial (L), Radial (R) GI/Abdominal: Normal Bowel Sounds, Soft Back Exam: Normal Inspection, Full Range of Motion Extremities: Normal Inspection, Normal Range of Motion, Non-Tender, Normal Capillary Refill Neurological: Alert, Oriented Skin Exam: Warm, Dry, Intact, Normal Color Course - Vital Signs Text/Narrative:: There has not been an xray completed. this is her second visit with left elbow pain, full ROM w/o pain on exam, no systemic symptoms, not septic arthritis, no swelling, no redness, no warmth. Patient and her spouse basically request x-ray to due this left elbow pain, which I provided them an xray to reassure no underlying fracture. Patient used her bilateral arms to push her self back in the bed, when she has a conversation describing her medical hx and current complaint, patient uses her left arm and full moves elbow w/o difficultly when walking. Continue with PCP recommendations (RICE, NSAIDs, and PT). Last Recorded V/S: Last Vital Signs Temp 97.1 F 03/26/19 10:08 Pulse 78 03/26/19 10:08 Resp 18 03/26/19 10:08 BP 144/88 H 03/26/19 10:08 Pulse Ox 94 L 03/26/19 10:08 - Orders/Labs/Meds Orders: Active Orders 24 hr Category Date Time Status Elbow Min 3V Lt [CR] Stat Exams 03/26/19 10:22 Taken Departure - Departure Time of Disposition: 11:03 Disposition: Home, Self-Care 01 Condition: Good Clinical Impression: Left elbow pain - Discharge Information *PRESCRIPTION DRUG MONITORING PROGRAM REVIEWED*: Not Applicable *COPY OF PRESCRIPTION DRUG MONITORING REPORT IN PATIENT HORACIO: Not Applicable Instructions: Joint Pain Forms: ED Department Discharge Additional Instructions: continue with PCP instructions with home pain medications and continue with Physical therapy as schedule next week. Avoid lifting heavy objects with it. - My Orders Last 24 Hours: My Active Orders 03/26/19 10:22 Elbow Min 3V Lt [CR] Stat - Assessment/Plan Last 24 Hours: My Active Orders 03/26/19 10:22 Elbow Min 3V Lt [CR] Stat
--- NOTE | 2019-03-26 11:15 | CR ---
[id number] RAD/RAD Elbow Left 3V Min Exam: RAD Elbow Left 3V Min Indication:PAIN, LIMITED MOVEMENT. Comparison: No prior imaging for comparison. Discussion: Anterior fat-pad is slightly elevated, which is nonspecific but can be seen with a small effusion. Osteoarthritis of the ulnotrochlear and radiocapitellar compartments with joint space narrowing. Linear lucency in the subcortical region of the lateral humeral epicondyle, seen on only one view, likely artifact from overlapping osseous cortical surfaces. If there is concern for a lateral epicondyle fracture, CT is recommended. Impression: As above. Deyvi Tan MD 03/26/19 1114 Thank you for allowing us to participate in the care of your patient.
== END 2019-03-26 11:20 | disposition home or self-care (01) ==
LOC: KA.ED 10:04
DX: M25.522 Pain in left elbow (principal); I48.91 Unspecified atrial fibrillation; M19.90 Unspecified osteoarthritis, unspecified site; Z79.01 Long term (current) use of anticoagulants; Z88.1 Allergy status to other antibiotic agents; Z88.0 Allergy status to penicillin; Z88.2 Allergy status to sulfonamides; Z96.651 Presence of right artificial knee joint
CPT/HCPCS: 73080-LT; 99283; 99283-25; 99284

== ENCOUNTER 2019-04-29 10:51 | Emergency (ER) | payer MEDICARE, MEDICAID ==
[2019-04-29 11:28] VITALS: BP 176/85; PULSE 86
--- NOTE | 2019-04-29 11:52 | CR ---
[id number] RAD/RAD Lumbar Spine 2-3V EXAM: LUMBAR SPINE 3 VIEWS INDICATION: CHRONIC LOW BACK PAIN. COMPARISON: None. DISCUSSION: Grade 1 L3-L4, L4-L5 and L5-S1 spondylolisthesis. A mild L2 superior endplate compression fracture is age indeterminate, but new relative to a September 15, [address] examination. Moderate to advanced degenerative disc disease L3-L4 through L5-S1 with moderate changes at the remaining disc levels. Facet arthropathy throughout the lower lumbar spine. IMPRESSION: 1. Mild age-indeterminate L2 compression fracture. 2. Moderate to advanced lumbar spondylosis. Jg Keating MD 04/29/19 1151 Thank you for allowing us to participate in the care of your patient.
--- NOTE | 2019-04-29 11:59 | EDM.PDOC ---
ED HPI GENERAL MEDICAL PROBLEM - General Chief Complaint: Lower Extremity Injury/Pain Stated Complaint: Left Hip Pain, back pain Time Seen by Provider: 04/29/19 11:00 Source of Information: Reports: Patient - History of Present Illness INITIAL COMMENTS - FREE TEXT/NARRATIVE: 71-year-old female presents emergency room accompanied with her with complaints of low back pain. 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 She denies any increased pain or discomfort other than her regular pain that she experiences. Couple days ago she was just in a blind when she had a near fall episode but again no fall. She denies significant increased amount of pain or discomfort. She denies any new onset of numbness or tingling or pain down her leg. She is scheduled to see Dr. Calle for an injection next week. She is a walker at all times. She does report difficulty getting from a seated to a standing position. She was able to perform this for me in the clinical room today with no increased risk of falling or instability. Onset: Gradual Onset Date: 04/27/19 Duration: Day(s):, Chronic Location: Reports: Back, Pelvis Quality: Reports: Ache Severity: Mild Improves with: Reports: Rest Worsens with: Reports: Movement Context: Reports: Activity Associated Symptoms: Reports: No Other Symptoms Treatments CANVAS CUTTER: Reports: Other (see below) Other Treatments CANVAS CUTTER: prescription pain medication Right Hip Pain Score (Numeric/FACES): 2 - Related Data Allergies Allergy/AdvReac Type Severity Reaction Status Date / Time budesonide [From Pulmicort] Allergy Nausea Verified 04/29/19 11:46 cephalexin Allergy Diarrhea Verified 04/29/19 11:46 methocarbamol [From Robaxin] Allergy Rash Verified 04/29/19 11:46 nitrofurantoin Allergy Hives Verified 04/29/19 11:46 macrocrystalline [From Macrodantin] penicillin V Allergy Hives Verified 04/29/19 11:46 sulfamethoxazole Allergy Diarrhea Verified 04/29/19 11:46 [From Bactrim] trimethoprim [From Bactrim] Allergy Diarrhea Verified 04/29/19 11:46 Home Meds: Home Meds Alendronate Sodium [Fosamax] 70 mg PO WEEKLY 09/01/15 [History] Phytonadione [Vitamin K] 100 mcg PO 1800 11/22/15 [History] Pravastatin [Pravachol] 20 mg PO BEDTIME 09/01/15 [History] carBAMazepine [Carbamazepine] 200 mg PO WITHBREAKFAST 09/01/15 [History] carBAMazepine [Carbamazepine] 400 mg PO BEDTIME 09/01/15 [History] Bisacodyl [Dulcolax] 5 mg PO DAILY 06/17/16 [History] Cholecalciferol (Vitamin D3) [Vitamin D3] 2,000 unit PO DAILY 06/17/16 [History] Multivitamin with Minerals [Multiple Vitamin] 1 tab PO DAILY 06/17/16 [History] Warfarin [Coumadin] 7.5 mg PO ASDIRECTED 06/17/16 [History] Albuterol Sulfate 1 ampule INH TID PRN 01/10/17 [History] Atenolol 25 mg PO 1800 01/10/17 [History] Iron Ps Cmplx/Vit B12/Fa [Poly-Iron 150 Forte] 1 cap PO DAILY 01/10/17 [History] Calcium Carb & Citrate/Vit D3 [Calcium + D3 ER Tablet] 1 each PO DAILY 05/27/17 [History] Fluticasone Propionate [Flonase Allergy Relief] 1 spray NASBOTH BID 05/27/17 [ History] amLODIPine [Norvasc] 10 mg PO DAILY 05/27/17 [History] Diclofenac Sodium [Voltaren 1% Gel] 1 applic TOP BID 03/19/19 [History] Diclofenac Sodium [Voltaren] 75 mg PO BIDMEALS 03/19/19 [History] Losartan [Cozaar] 100 mg PO DAILY 03/19/19 [History] Past Medical History HEENT History: Reports: Impaired Vision Cardiovascular History: Reports: Afib, High Cholesterol Respiratory History: Reports: Asthma Gastrointestinal History: Reports: Chronic Constipation, GERD Genitourinary History: Reports: UTI, Recurrent [employer]MER History: Reports: Musculoskeletal History: Reports: Arthritis, Back Pain, Chronic Neurological History: Reports: None Endocrine/Metabolic History: Reports: None Hematologic History: Reports: Iron Deficiency Immunologic History: Reports: None Oncologic (Cancer) History: Reports: None Dermatologic History: Reports: None - Infectious Disease History Infectious Disease History: Reports: None - Past Surgical History Head Surgeries/Procedures: Reports: None Respiratory Surgical History: Reports: None GI Surgical History: Reports: Cholecystectomy Female Surgical History: Reports: Section, Hysterectomy Musculoskeletal Surgical History: Reports: Knee Replacement Social & Family History - Family History HEENT: Reports: None Cardiac: Reports: High Cholesterol, Hypertension Respiratory: Reports: None GI: Reports: None : Reports: None OBGYN: Reports: None Musculoskeletal: Reports: None Neurological: Reports: None Psychiatric: Reports: Other (See Below) Endocrine/Metabolic: Reports: Diabetes, type II Hematologic: Reports: None Immunologic: Reports: None Dermatologic: Reports: None Oncologic: Reports: None - Tobacco Use Smoking Status *Q: Never Smoker - Caffeine Use Caffeine Use: Reports: Coffee - Recreational Drug Use Recreational Drug Use: No Review of Systems - Review of Systems Review Of Systems: ROS reveals no pertinent complaints other than HPI. ED EXAM, GENERAL - Physical Exam Exam: See Below Exam Limited By: No Limitations General Appearance: Alert, WD/WN, No Apparent Distress, Obese Nose: Normal Inspection Throat/Mouth: Normal Voice Head: Atraumatic Neck: Normal Inspection Respiratory/Chest: No Respiratory Distress Back Exam: Normal Inspection Extremities: Normal Inspection, Normal Range of Motion Neurological: Alert, Normal Cognition, No Motor/Sensory Deficits, Abnormal Gait (Walker assisted gait) Psychiatric: Depressed Mood, Flat Affect Skin Exam: Warm, Dry, Intact Course - Vital Signs Last Recorded V/S: Last Vital Signs Temp 97.2 F 04/29/19 11:24 Pulse 86 04/29/19 11:24 Resp 16 04/29/19 11:24 BP 176/85 H 04/29/19 11:24 Pulse Ox 96 04/29/19 11:24 Departure - Departure Time of Disposition: 12:10 Disposition: Home, Self-Care 01 Condition: Good 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 Walker at all times. 2. Avoid risk that increase her chance of falling. 3. Follow-up your primary care as scheduled.
== END 2019-04-29 12:20 | disposition home or self-care (01) ==
LOC: KA.ED 10:51
DX: M47.816 Spondylosis without myelopathy or radiculopathy, lumbar region (principal); I48.91 Unspecified atrial fibrillation; M19.90 Unspecified osteoarthritis, unspecified site; Z88.1 Allergy status to other antibiotic agents; Z88.0 Allergy status to penicillin; Z88.2 Allergy status to sulfonamides; Z79.899 Other long term (current) drug therapy; Z90.49 Acquired absence of other specified parts of digestive tract; Z90.710 Acquired absence of both cervix and uterus; Z79.01 Long term (current) use of anticoagulants
CPT/HCPCS: 72100; 99283-25; 99284

== ENCOUNTER 2019-05-24 01:58 | Emergency (ER) | payer MEDICARE, MEDICAID ==
[2019-05-24] MEDS ORDERED: Ketorolac 30 MG/ML SDV IVPUSH ONE (02:22)
[2019-05-24] MEDS ORDERED: Sodium Chloride 0.9% 10 ML Syringe FLUSH PRN (02:23)
--- NOTE | 2019-05-24 02:32 | EDM.PDOC ---
ED HPI GENERAL MEDICAL PROBLEM - General Chief Complaint: Back Pain or Injury Stated Complaint: back pain Time Seen by Provider: 05/24/19 02:20 Source of Information: Reports: Patient History Limitations: Reports: No Limitations - History of Present Illness INITIAL COMMENTS - FREE TEXT/NARRATIVE: 79 YO WF presents to ER complaining of left low back pain. 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 She denies any increased pain or discomfort other than her regular pain that she experiences. Pt denies any bowel or bladder dysfunction. Pt denies any saddle paraesthesias. Pt denies weakness or numbness. Pt was able to ambulate from car to ER treatment room with minimal discomfort. She denies significant increased amount of pain or discomfort. She denies any new onset of numbness or tingling or pain down her leg. Pt recently saw Dr. Calle for an injection of SI joint and was given hydrocodone with minimal relief. She does report difficulty getting from a seated to a standing position. She was able to perform this for me in the clinical room today with no increased risk of falling or instability. Duration: Chronic Location: Reports: Back Quality: Reports: Ache Severity: Moderate Improves with: Reports: Rest Worsens with: Reports: Movement Associated Symptoms: Reports: No Other Symptoms. Denies: Weakness - Related Data Allergies Allergy/AdvReac Type Severity Reaction Status Date / Time budesonide [From Pulmicort] Allergy Nausea Verified 05/24/19 02:01 cephalexin Allergy Diarrhea Verified 05/24/19 02:01 methocarbamol [From Robaxin] Allergy Rash Verified 05/24/19 02:01 nitrofurantoin Allergy Hives Verified 05/24/19 02:01 macrocrystalline [From Macrodantin] penicillin V Allergy Hives Verified 05/24/19 02:01 sulfamethoxazole Allergy Diarrhea Verified 05/24/19 02:01 [From Bactrim] trimethoprim [From Bactrim] Allergy Diarrhea Verified 05/24/19 02:01 Home Meds: Home Meds Alendronate Sodium [Fosamax] 70 mg PO WEEKLY 09/01/15 [History] Phytonadione [Vitamin K] 100 mcg PO 1800 09/01/15 [History] Pravastatin [Pravachol] 20 mg PO BEDTIME 09/01/15 [History] carBAMazepine [Carbamazepine] 200 mg PO WITHBREAKFAST 09/01/15 [History] carBAMazepine [Carbamazepine] 400 mg PO BEDTIME 09/01/15 [History] Bisacodyl [Dulcolax] 5 mg PO DAILY 06/17/16 [History] Cholecalciferol (Vitamin D3) [Vitamin D3] 2,000 unit PO DAILY 06/17/16 [History] Multivitamin with Minerals [Multiple Vitamin] 1 tab PO DAILY 06/17/16 [History] Warfarin [Coumadin] 7.5 mg PO ASDIRECTED 06/17/16 [History] Albuterol Sulfate 1 ampule INH TID PRN 01/10/17 [History] Atenolol 25 mg PO 1800 01/10/17 [History] Iron Ps Cmplx/Vit B12/Fa [Poly-Iron 150 Forte] 1 cap PO DAILY 01/10/17 [History] Calcium Carb & Citrate/Vit D3 [Calcium + D3 ER Tablet] 1 each PO DAILY 05/27/17 [History] Fluticasone Propionate [Flonase Allergy Relief] 1 spray NASBOTH BID 05/27/17 [ History] amLODIPine [Norvasc] 10 mg PO DAILY 05/27/17 [History] Diclofenac Sodium [Voltaren 1% Gel] 1 applic TOP BID 03/19/19 [History] Diclofenac Sodium [Voltaren] 75 mg PO BIDMEALS 03/19/19 [History] Losartan [Cozaar] 100 mg PO DAILY 03/19/19 [History] Cyclobenzaprine [Flexeril] 10 mg PO BEDTIME PRN #10 tab 05/24/19 [Rx] predniSONE 20 mg PO WITHBREAKFAST #10 tab 05/24/19 [Rx] Past Medical History HEENT History: Reports: Impaired Vision Cardiovascular History: Reports: Afib, High Cholesterol Respiratory History: Reports: Asthma Gastrointestinal History: Reports: Chronic Constipation, GERD Genitourinary History: Reports: UTI, Recurrent [employer] History: Reports: Musculoskeletal History: Reports: Arthritis, Back Pain, Chronic Neurological History: Reports: None Endocrine/Metabolic History: Reports: None Hematologic History: Reports: Iron Deficiency Immunologic History: Reports: None Oncologic (Cancer) History: Reports: None Dermatologic History: Reports: None - Infectious Disease History Infectious Disease History: Reports: None - Past Surgical History GI Surgical History: Reports: Cholecystectomy, Colonoscopy Female Surgical History: Reports: Section Social & Family History - Family History HEENT: Reports: None Cardiac: Reports: High Cholesterol, Hypertension Respiratory: Reports: None GI: Reports: None : Reports: None OBGYN: Reports: None Musculoskeletal: Reports: None Neurological: Reports: None Psychiatric: Reports: Other (See Below) Endocrine/Metabolic: Reports: Diabetes, type II Hematologic: Reports: None Immunologic: Reports: None Dermatologic: Reports: None Oncologic: Reports: None - Caffeine Use Caffeine Use: Reports: Coffee, Soda ED ROS GENERAL - Review of Systems Review Of Systems: See Below Constitutional: Reports: No Symptoms HEENT: Reports: No Symptoms Respiratory: Reports: No Symptoms Cardiovascular: Reports: No Symptoms Endocrine: Reports: No Symptoms GI/Abdominal: Reports: No Symptoms : Reports: No Symptoms Musculoskeletal: Reports: Back Pain, Joint Pain Skin: Reports: No Symptoms Neurological: Reports: No Symptoms Psychiatric: Reports: No Symptoms Hematologic/Lymphatic: Reports: No Symptoms Immunologic: Reports: No Symptoms ED EXAM,LOWER BACK PAIN/INJURY - Physical Exam Exam: See Below Exam Limited By: No Limitations General Appearance: Alert, WD/WN, No Apparent Distress Head: Atraumatic, Normocephalic Neck: Normal Inspection, Supple, Non-Tender, Full Range of Motion Respiratory/Chest: No Respiratory Distress, Lungs Clear, Normal Breath Sounds, No Accessory Muscle Use, Chest Non-Tender Cardiovascular: Normal Peripheral Pulses, Regular Rate, Rhythm, No Edema, No Gallop, No JVD, No Murmur, No Rub GI/Abdominal: Normal Bowel Sounds, Soft, Non-Tender, No Organomegaly, No Distention, No Abnormal Bruit, No Mass Back Exam: Decreased Range of Motion, Muscle Spasm Extremities: Normal Inspection, Normal Range of Motion, Non-Tender, No Pedal Edema, Normal Capillary Refill Neurological: Alert, Normal Mood/Affect, Normal Dorsiflexion, CN II-XII Intact, Normal Plantar Flexion, Normal Gait, Normal Reflexes, No Motor/Sensory Deficits , Oriented x 3 Psychiatric: Normal Affect, Normal Mood Skin Exam: Warm, Dry, Intact, Normal Color, No Rash Lymphatic: No Adenopathy Course - Orders/Labs/Meds Orders: Active Orders 24 hr Category Date Time Status Sodium Chloride 0.9% [Saline Flush] Med 05/24/19 02:23 Active 10 ml FLUSH Q8HR PRN Saline Lock Insert [OM.PC] Routine Oth 05/24/19 02:23 Ordered Medication Orders Sodium Chloride (Saline Flush) 10 ml FLUSH Q8HR PRN PRN Reason: keep vein open Meds: Medications Generic Name Dose Route Start Last Admin Trade Name Freq PRN Reason Stop Dose Admin Sodium Chloride 10 ml 05/24/19 02:23 Saline Flush FLUSH Q8HR PRN keep vein open Discontinued Medications Generic Name Dose Route Start Last Admin Trade Name Freq PRN Reason Stop Dose Admin Ketorolac Tromethamine 30 mg 05/24/19 02:22 Toradol IVPUSH 05/24/19 02:23 ONETIME ONE Departure - Departure Time of Disposition: 02:51 Disposition: Home, Self-Care 01 Condition: Good Clinical Impression: 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 discharge home 2. follow up with Dr Calle for further management and treatment 3. return to ER for worsening symptoms 4. prednisone 40mg PO QD x 5 days 5. flexeril 10mg PO QHS PRN pain 6. continue hydrocodone as needed every 4-6 hours - My Orders Last 24 Hours: My Active Orders 05/24/19 02:23 Sodium Chloride 0.9% [Saline Flush] 10 ml FLUSH Q8HR PRN Saline Lock Insert [OM.PC] Routine - Assessment/Plan Last 24 Hours: My Active Orders 05/24/19 02:23 Sodium Chloride 0.9% [Saline Flush] 10 ml FLUSH Q8HR PRN Saline Lock Insert [OM.PC] Routine Assessment:: 1. Lower back pain/Left SI joint pain-chronic Plan: 1. discharge home 2. follow up with Dr Calle for further management and treatment 3. return to ER for worsening symptoms 4. prednisone 40mg PO QD x 5 days 5. flexeril 10mg PO QHS PRN pain 6. continue hydrocodone as needed every 4-6 hours
[2019-05-24 02:46] VITALS: BP 153/80; PULSE 74
== END 2019-05-24 03:05 | disposition home or self-care (01) ==
LOC: KA.ED 01:58
DX: M47.816 Spondylosis without myelopathy or radiculopathy, lumbar region (principal); I48.91 Unspecified atrial fibrillation; Z90.49 Acquired absence of other specified parts of digestive tract; Z88.1 Allergy status to other antibiotic agents; Z88.2 Allergy status to sulfonamides; Z88.8 Allergy status to other drugs, medicaments and biological substances; Z79.899 Other long term (current) drug therapy; Z79.01 Long term (current) use of anticoagulants
CPT/HCPCS: 96374; 99283; J1885; 99284

== ENCOUNTER 2019-05-31 13:07 | Inpatient (IN) | payer MEDICARE, MEDICAID ==
--- NOTE | 2019-05-31 13:51 | EDM.PDOC ---
ED HPI GENERAL MEDICAL PROBLEM - General Chief Complaint: General Stated Complaint: SEVERE HIP PAIN Time Seen by Provider: 05/31/19 13:30 Source of Information: Reports: Patient, EMS History Limitations: Reports: No Limitations - History of Present Illness INITIAL COMMENTS - FREE TEXT/NARRATIVE: 79 YO WF presents to ER complaining of left hip pain. 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 Pt reports she was home alone today when she developed the pain and felt like she was going to fall. Pt reports she is afraid to be alone at home due to falling and no one being there to help her. Pt reports every time her leaves the house she become anxious due to possibility of falling. Pt alert and oriented x 4. Pt able to transfer with some difficulty. Duration: Chronic Location: Reports: Back, Lower Extremity, Left Quality: Reports: Ache Severity: Moderate Improves with: Reports: Rest Worsens with: Reports: Movement Associated Symptoms: Reports: No Other Symptoms Left Hip Pain Score (Numeric/FACES): 4 - Related Data Allergies Allergy/AdvReac Type Severity Reaction Status Date / Time budesonide [From Pulmicort] Allergy Nausea Verified 05/24/19 02:01 cephalexin Allergy Diarrhea Verified 05/24/19 02:01 methocarbamol [From Robaxin] Allergy Rash Verified 05/24/19 02:01 nitrofurantoin Allergy Hives Verified 05/24/19 02:01 macrocrystalline [From Macrodantin] penicillin V Allergy Hives Verified 05/24/19 02:01 sulfamethoxazole Allergy Diarrhea Verified 05/24/19 02:01 [From Bactrim] trimethoprim [From Bactrim] Allergy Diarrhea Verified 05/24/19 02:01 Home Meds: Home Meds Alendronate Sodium [Fosamax] 70 mg PO WEEKLY 09/01/15 [History] Phytonadione [Vitamin K] 100 mcg PO 1800 09/01/15 [History] Pravastatin [Pravachol] 20 mg PO BEDTIME 09/01/15 [History] carBAMazepine [Carbamazepine] 200 mg PO WITHBREAKFAST 09/01/15 [History] carBAMazepine [Carbamazepine] 400 mg PO BEDTIME 09/01/15 [History] Bisacodyl [Dulcolax] 5 mg PO DAILY 06/17/16 [History] Cholecalciferol (Vitamin D3) [Vitamin D3] 2,000 unit PO DAILY 06/17/16 [History] Multivitamin with Minerals [Multiple Vitamin] 1 tab PO DAILY 06/17/16 [History] Warfarin [Coumadin] 7.5 mg PO ASDIRECTED 06/17/16 [History] Atenolol 25 mg PO 1800 01/10/17 [History] Iron Ps Cmplx/Vit B12/Fa [Poly-Iron 150 Forte] 1 cap PO DAILY 01/10/17 [History] Calcium Carb & Citrate/Vit D3 [Calcium + D3 ER Tablet] 1 each PO DAILY 05/27/17 [History] Fluticasone Propionate [Flonase Allergy Relief] 1 spray NASBOTH BID 05/27/17 [ History] amLODIPine [Norvasc] 10 mg PO DAILY 05/27/17 [History] Diclofenac Sodium [Voltaren 1% Gel] 1 applic TOP BID 03/19/19 [History] Diclofenac Sodium [Voltaren] 75 mg PO BIDMEALS 03/19/19 [History] Losartan [Cozaar] 100 mg PO DAILY 03/19/19 [History] Acetaminophen [Mapap] 500 mg PO TID 05/31/19 [History] Albuterol Sulfate [Albuterol Sulfate Hfa] 1 - 2 puff IH Q4H PRN 05/31/19 [ History] Atenolol/Chlorthalidone [Atenolol-Chlorthalidone 100-25] 1 tab PO DAILY [History] Cetirizine HCl [Zyrtec] 10 mg PO DAILY 05/31/19 [History] Cranberry 500 mg PO DAILY 05/31/19 [History] Diphenhyd/Lidocaine/Nystatin [First-Bxn Mouthwash] 15 ml MM BID 05/31/19 [ History] Doxycycline Hyclate 100 mg PO BID 05/31/19 [History] Hydrocodone/Acetaminophen [Hydrocodon-Acetaminophen 5-325] 1 - 2 tab PO BID PRN 05/31/19 [History] Lidocaine 5% [Lidoderm 5%] 1 patch TOP DAILY 05/31/19 [History] Montelukast Sodium [Singulair] 10 mg PO BEDTIME 05/31/19 [History] Naloxegol Oxalate [Movantik] 12.5 mg PO DAILY 05/31/19 [History] Saliva Stimulant Comb. No.5 [Salivasure] 1 each MM Q2H PRN 05/31/19 [History] Triamcinolone Acetonide [Oralone 0.1% Dental Paste] 1 gm TOP QID 05/31/19 [ History] Umeclidinium Brm/Vilanterol Tr [Anoro Ellipta 62.5-25 MCG] 1 inh IH DAILY [History] Warfarin [Coumadin] 10 mg PO TUTH 05/31/19 [History] amLODIPine Besylate [Norvasc] 5 mg PO DAILY 05/31/19 [History] cloNIDine HCl [Catapres] 0.2 mg PO BID 05/31/19 [History] Past Medical History HEENT History: Reports: Impaired Vision Cardiovascular History: Reports: Afib, High Cholesterol Respiratory History: Reports: Asthma Gastrointestinal History: Reports: Chronic Constipation, GERD Genitourinary History: Reports: UTI, Recurrent [employer] History: Reports: Musculoskeletal History: Reports: Arthritis, Back Pain, Chronic Neurological History: Reports: None Endocrine/Metabolic History: Reports: None Hematologic History: Reports: Iron Deficiency Immunologic History: Reports: None Oncologic (Cancer) History: Reports: None Dermatologic History: Reports: None - Infectious Disease History Infectious Disease History: Reports: None - Past Surgical History Head Surgeries/Procedures: Reports: None GI Surgical History: Reports: Cholecystectomy, Colonoscopy Female Surgical History: Reports: Section Social & Family History - Family History HEENT: Reports: None Cardiac: Reports: High Cholesterol, Hypertension Respiratory: Reports: None GI: Reports: None : Reports: None OBGYN: Reports: None Musculoskeletal: Reports: None Neurological: Reports: None Psychiatric: Reports: Other (See Below) Endocrine/Metabolic: Reports: Diabetes, type II Hematologic: Reports: None Immunologic: Reports: None Dermatologic: Reports: None Oncologic: Reports: None - Tobacco Use Smoking Status *Q: Never Smoker Second Hand Smoke Exposure: No - Caffeine Use Caffeine Use: Reports: Coffee, Soda - Recreational Drug Use Recreational Drug Use: No ED ROS GENERAL - Review of Systems Review Of Systems: See Below Constitutional: Reports: No Symptoms HEENT: Reports: No Symptoms Respiratory: Reports: No Symptoms Cardiovascular: Reports: No Symptoms Endocrine: Reports: No Symptoms GI/Abdominal: Reports: No Symptoms : Reports: No Symptoms Musculoskeletal: Reports: Back Pain Skin: Reports: No Symptoms Neurological: Reports: No Symptoms Psychiatric: Reports: No Symptoms Hematologic/Lymphatic: Reports: No Symptoms Immunologic: Reports: No Symptoms ED EXAM, GENERAL - Physical Exam Exam: See Below Exam Limited By: No Limitations General Appearance: Alert, WD/WN, No Apparent Distress Head: Atraumatic, Normocephalic Neck: Normal Inspection, Supple, Non-Tender, Full Range of Motion Respiratory/Chest: No Respiratory Distress, Lungs Clear, Normal Breath Sounds, No Accessory Muscle Use, Chest Non-Tender Cardiovascular: Normal Peripheral Pulses, Regular Rate, Rhythm, No Edema, No Gallop, No JVD, No Murmur, No Rub GI/Abdominal: Normal Bowel Sounds, Soft, Non-Tender, No Organomegaly, No Distention, No Abnormal Bruit, No Mass Back Exam: Muscle Spasm. No: Paraspinal Tenderness, Vertebral Tenderness Extremities: Normal Range of Motion, No Pedal Edema, Normal Capillary Refill, Leg Pain (left hip/back pain) Neurological: Alert, Oriented, CN II-XII Intact, Normal Cognition, Normal Gait, Normal Reflexes, No Motor/Sensory Deficits Psychiatric: Normal Affect, Normal Mood Skin Exam: Warm, Dry, Intact, Normal Color, No Rash Lymphatic: No Adenopathy EKG INTERPRETATION EKG Date: 05/31/19 Time: 13:33 Rhythm: A-Fib Rate (Beats/Min): 76 Auxier: Normal P-Wave: Present QRS: Normal ST-T: Normal QT: Normal Comparison: No Change Course - Vital Signs Last Recorded V/S: Last Vital Signs Temp 36.6 C 05/31/19 13:14 Pulse 78 05/31/19 13:26 Resp 20 05/31/19 13:26 BP 150/60 H 05/31/19 13:26 Pulse Ox 97 05/31/19 13:26 - Orders/Labs/Meds Orders: Active Orders 24 hr Category Date Time Status EKG Documentation Completion [RC] ASDIRECTED Care 05/31/19 13:26 Active Peripheral IV Care [RC] . DIRECTED Care 05/31/19 13:56 Active BASIC METABOLIC PANEL,BMP [CHEM] Stat Lab 05/31/19 13:56 Ordered UA W/MICROSCOPIC [URIN] Stat Lab 05/31/19 13:56 Ordered Sodium Chloride 0.9% [Saline Flush] Med 05/31/19 13:56 Active 10 ml FLUSH Q8HR PRN Peripheral IV Insertion Adult [OM.PC] Routine Oth 05/31/19 13:56 Ordered EKG 12 Lead [EK] Routine Ther 05/31/19 13:25 Ordered Medication Orders Sodium Chloride (Saline Flush) 10 ml FLUSH Q8HR PRN PRN Reason: keep vein open Labs: Laboratory Tests 05/31/19 Range/Units 14:06 WBC 9.80 (5.00-10.00) 10^3/uL RBC 3.80 (3.80-5.50) 10^6/uL Hgb 14.4 (12.0-16.0) g/dL Hct 38.3 (37.0-47.0) % MCV 100.8 H D (82.0-92.0) fL MCH 37.9 H (27.0-31.0) pg MCHC 37.6 H (32.0-36.0) g/dL RDW 11.7 (11.5-14.5) % Plt Count 304 (150-400) 10^3/uL MPV 9.8 (7.4-10.4) fL Immature Gran % (Auto) 0.3 (0.0-5.0) % Neut % (Auto) 80.2 H (50.0-70.0) % Lymph % (Auto) 7.1 L (20.0-40.0) % Mathews % (Auto) 11.3 H (2.0-8.0) % Eos % (Auto) 0.7 L (1.0-3.0) % Baso % (Auto) 0.4 (0.0-1.0) % Immature Gran # (Auto) 0.03 (0.00-0.50) 10^3/uL Neut # (Auto) 7.85 H (2.50-7.00) 10^3/uL Lymph # (Auto) 0.70 L (1.00-4.00) 10^3/uL Mathews # (Auto) 1.11 H (0.10-0.80) 10^3/uL Eos # (Auto) 0.07 L (0.10-0.30) 10^3/uL Baso # (Auto) 0.04 (0.00-0.10) 10^3/uL Meds: Medications Generic Name Dose Route Start Last Admin Trade Name Freq PRN Reason Stop Dose Admin Sodium Chloride 10 ml 05/31/19 13:56 Saline Flush FLUSH Q8HR PRN keep vein open Discontinued Medications Generic Name Dose Route Start Last Admin Trade Name Torsten PRN Reason Stop Dose Admin Ketorolac Tromethamine 30 mg 05/31/19 13:56 Toradol IVPUSH 05/31/19 13:57 ONETIME ONE Departure - Departure Time of Disposition: 15:10 Disposition: Admitted As Inpatient 67 Condition: Fair Clinical Impression: Hyponatremia, Anxiety, Chronic sacroiliac joint pain - Discharge Information Referrals: Adonis Zuniga PA-C [Primary Care Provider] - Forms: ED Department Discharge - My Orders Last 24 Hours: My Active Orders 05/31/19 13:25 EKG 12 Lead [EK] Routine 05/31/19 13:26 EKG Documentation Completion [RC] ASDIRECTED 05/31/19 13:56 Peripheral IV Care [RC] . DIRECTED BASIC METABOLIC PANEL,BMP [CHEM] Stat UA W/MICROSCOPIC [URIN] Stat Sodium Chloride 0.9% [Saline Flush] 10 ml FLUSH Q8HR PRN Peripheral IV Insertion Adult [OM.PC] Routine - Assessment/Plan Last 24 Hours: My Active Orders 05/31/19 13:25 EKG 12 Lead [EK] Routine 05/31/19 13:26 EKG Documentation Completion [RC] ASDIRECTED 05/31/19 13:56 Peripheral IV Care [RC] . DIRECTED BASIC METABOLIC PANEL,BMP [CHEM] Stat UA W/MICROSCOPIC [URIN] Stat Sodium Chloride 0.9% [Saline Flush] 10 ml FLUSH Q8HR PRN Peripheral IV Insertion Adult [OM.PC] Routine Assessment:: 1. Hyponatremia 2. chronic left hip pain/SI joint pain 3. anxiety disorder Plan: 1. admit to medicine- Nathalia Saeed 2. NS@125cc/hr 3. recheck labs in am 4. social service consult- consider placement vs home health/sitter
[2019-05-31] MEDS ORDERED: Sodium Chloride 0.9% 10 ML Syringe FLUSH PRN (13:56)
[2019-05-31] MEDS ORDERED: Ketorolac 30 MG/ML SDV IVPUSH ONE (13:56)
[2019-05-31 14:48] LABS: SODIUM,NA 126 mmol/L (136-145)
[2019-05-31 14:50] LABS: CHLORIDE,CL 80 mmol/L (98-115)
[2019-05-31] MEDS ORDERED: Sodium Chloride 0.9% 1,000 ML IV ONE (15:07)
[2019-05-31] MEDS: Sodium Chloride 0.9% 1,000 ML IV SCH (17:10)
[2019-05-31] MEDS ORDERED: Albuterol 8 GM Inhaler INH PRN (17:29)
[2019-05-31] MEDS ORDERED: Acetaminophen/HYDROcodone 325-5 MG Tab PO PRN (17:40)
[2019-05-31] MEDS ORDERED: Diclofenac Sodium 1% Gel 100 GM Tube TOP PRN (17:40)
[2019-05-31] MEDS ORDERED: Warfarin 5 MG Tab PO SCH (17:45)
[2019-05-31] MEDS ORDERED: Phytonadione 100 MCG Tab PO SCH (18:00)
[2019-05-31] MEDS: Diclofenac Sodium 75 MG Tab.EC PO SCH (18:51)
[2019-05-31] MEDS ORDERED: Pravastatin 20 MG Tab PO SCH (21:00)
[2019-05-31] MEDS ORDERED: Montelukast 10 MG Tab PO SCH (21:00)
[2019-05-31] MEDS ORDERED: carBAMazepine 200 MG Tab PO SCH (21:00)
[2019-05-31] MEDS: Acetaminophen 500 MG Tab PO SCH (22:05)
[2019-05-31] MEDS: cloNIDine 0.1 MG Tab PO SCH (22:05)
[2019-06-01] MEDS: Sodium Chloride 0.9% 1,000 ML IV SCH (01:45)
[2019-06-01] MEDS ORDERED: carBAMazepine 200 MG Tab PO SCH (08:00)
[2019-06-01 08:03] LABS: ANION GAP 9.1 mmol/L (5-15); CHLORIDE,CL 91 mmol/L (98-115); SODIUM,NA 128 mmol/L (136-145)
[2019-06-01] MEDS ORDERED: Lidocaine 5% 700 MG Patch TOP SCH (09:00)
[2019-06-01] MEDS ORDERED: Naloxegol Oxalate 25 MG Tab PO SCH (09:00)
[2019-06-01] MEDS ORDERED: Iron Polysaccharides Complex 150 MG Cap PO SCH (09:00)
[2019-06-01] MEDS ORDERED: Cetirizine 10 MG Tab PO SCH (09:00)
[2019-06-01] MEDS ORDERED: Losartan 50 MG Tab PO SCH (09:00)
[2019-06-01] MEDS ORDERED: Cholecalciferol (Vitamin D3) 25 MCG Tab PO SCH (09:00)
[2019-06-01] MEDS ORDERED: Bisacodyl 5 MG Tab PO SCH (09:00)
[2019-06-01] MEDS ORDERED: Calcium Citrate/Vitamin D3 315 MG-250 Unit Tab PO SCH (09:00)
[2019-06-01] MEDS ORDERED: Multivitamins with Minerals/Iron/Folic Acid/Lycopene Tab PO SCH (09:00)
[2019-06-01] MEDS ORDERED: amLODIPine 5 MG Tab PO SCH (09:00)
[2019-06-01] MEDS ORDERED: Umeclidinium Brm/Vilanterol Tr 62.5-25 MCG 7 Puff Inhaler IH SCH (09:00)
[2019-06-01] MEDS: Acetaminophen 500 MG Tab PO SCH ×2 (09:23→14:50)
[2019-06-01] MEDS: cloNIDine 0.1 MG Tab PO SCH (09:24)
[2019-06-01] MEDS: Diclofenac Sodium 75 MG Tab.EC PO SCH (09:32)
--- NOTE | 2019-06-01 10:21 | PCM.DCSUM1 ---
Discharge Summary - Hospital Course Diagnosis: Stroke: No - Discharge Data Discharge Date: 06/01/19 Discharge Disposition: DC/Tfer to SNF 03 Condition: Good - Patient Summary/Data Consults: Consultations 05/31/19 15:12 Consult to Case Management/Promotional Marketing Agent [CONS] Routine 05/31/19 22:08 PT Evaluation and Treatment [CONS] Routine - Patient Instructions Diet: Regular Diet as Tolerated Activity: As Tolerated Driving: Do Not Drive Showering/Bathing: May Shower Notify Provider of: Increased Pain - Discharge Plan *COPY OF PRESCRIPTION DRUG MONITORING REPORT IN PATIENT HORACIO: Not Applicable Prescriptions/Med Rec: Acetaminophen [Tylenol Arthritis] 650 mg PO Q6H #90 tablet.er Home Medications: Home Meds Alendronate Sodium [Fosamax] 70 mg PO WEEKLY 09/01/15 [History] Phytonadione [Vitamin K] 100 mcg PO 1800 09/01/15 [History] Pravastatin [Pravachol] 20 mg PO BEDTIME 09/01/15 [History] carBAMazepine [Carbamazepine] 200 mg PO WITHBREAKFAST 09/01/15 [History] carBAMazepine [Carbamazepine] 400 mg PO BEDTIME 09/01/15 [History] Bisacodyl [Dulcolax] 5 mg PO DAILY 06/17/16 [History] Cholecalciferol (Vitamin D3) [Vitamin D3] 2,000 unit PO DAILY 06/17/16 [History] Multivitamin with Minerals [Multiple Vitamin] 1 tab PO DAILY 06/17/16 [History] Warfarin [Coumadin] 7.5 mg PO MOWEFR 06/17/16 [History] Iron Ps Cmplx/Vit B12/Fa [Poly-Iron 150 Forte] 150 mg PO DAILY 01/10/17 [History ] Calcium Carb & Citrate/Vit D3 [Calcium + D3 ER Tablet] 1 each PO DAILY 05/27/17 [History] Fluticasone Propionate [Flonase Allergy Relief] 1 spray NASBOTH BID 05/27/17 [ History] amLODIPine [Norvasc] 5 mg PO DAILY 05/27/17 [History] Diclofenac Sodium [Voltaren 1% Gel] 1 applic TOP BID 03/19/19 [History] Losartan [Cozaar] 100 mg PO DAILY 03/19/19 [History] Albuterol Sulfate [Albuterol Sulfate Hfa] 1 - 2 puff IH Q4H PRN 05/31/19 [ History] Cetirizine HCl [Zyrtec] 10 mg PO DAILY 05/31/19 [History] Diphenhyd/Lidocaine/Nystatin [Magic Mouthwash] 15 ml MM BID 05/31/19 [History] Hydrocodone/Acetaminophen [Hydrocodon-Acetaminophen 5-325] 1 - 2 tab PO BID PRN 05/31/19 [History] Lidocaine 5% [Lidoderm 5%] 1 patch TOP DAILY 05/31/19 [History] Montelukast Sodium [Singulair] 10 mg PO BEDTIME 05/31/19 [History] Naloxegol Oxalate [Movantik] 12.5 mg PO DAILY 05/31/19 [History] Saliva Stimulant Comb. No.5 [Salivasure] 1 each MM Q2H PRN 05/31/19 [History] Triamcinolone Acetonide [Oralone 0.1% Dental Paste] 1 gm TOP QID 05/31/19 [ History] Umeclidinium Brm/Vilanterol Tr [Anoro Ellipta 62.5-25 MCG] 1 inh IH DAILY [History] Warfarin [Coumadin] 10 mg PO SUTUTHSA 05/31/19 [History] amLODIPine Besylate [Norvasc] 5 mg PO DAILY 05/31/19 [History] cloNIDine HCl [Catapres] 0.2 mg PO BID 05/31/19 [History] Acetaminophen [Tylenol Arthritis] 650 mg PO Q6H #90 tablet.er 06/01/19 [Rx] Atenolol 50 mg PO DAILY #0 06/01/19 [Rx] - Discharge Summary/Plan Comment DC Time >30 min.: Yes Discharge Summary/Plan Comment: Use H&P as a combination discharge summary - General Info Functional Status: Reports: Pain Controlled, Tolerating Diet. Denies: Ambulating, New Symptoms, Incentive Spirometry - Review of Systems General: Denies: Fever, Weakness HEENT: Reports: No Symptoms Pulmonary: Reports: No Symptoms Cardiovascular: Reports: No Symptoms Gastrointestinal: Reports: No Symptoms Musculoskeletal: Reports: Joint Pain Skin: Denies: Dryness - Patient Data Vitals - Most Recent: Last Vital Signs Temp 97.6 F 06/01/19 06:52 Pulse 72 06/01/19 06:52 Resp 16 06/01/19 06:52 BP 145/91 H 06/01/19 09:24 Pulse Ox 94 L 06/01/19 06:52 Weight - Most Recent: 207 lb 3 oz I&O - Last 24 hours: Intake & Output 05/31/19 06/01/19 06/01/19 22:59 06:59 14:59 Intake Total 2227 536 2081 Output Total 1100 Balance 1565 -600 1080 Lab Results - Last 24 hrs: Laboratory Results - last 24 hr 05/31/19 05/31/19 05/31/19 Range/Units 14:06 14:06 20:05 WBC 9.80 (5.00-10.00) 10^3/uL RBC 3.80 (3.80-5.50) 10^6/uL Hgb 14.4 (12.0-16.0) g/dL Hct 38.3 (37.0-47.0) % MCV 100.8 H D (82.0-92.0) fL MCH 37.9 H (27.0-31.0) pg MCHC 37.6 H (32.0-36.0) g/dL RDW 11.7 (11.5-14.5) % Plt Count 304 (150-400) 10^3/uL MPV 9.8 (7.4-10.4) fL Immature Gran % (Auto) 0.3 (0.0-5.0) % Neut % (Auto) 80.2 H (50.0-70.0) % Lymph % (Auto) 7.1 L (20.0-40.0) % [place] % (Auto) 11.3 H (2.0-8.0) % Eos % (Auto) 0.7 L (1.0-3.0) % Baso % (Auto) 0.4 (0.0-1.0) % Immature Gran # (Auto) 0.03 (0.00-0.50) 10^3/uL Neut # (Auto) 7.85 H (2.50-7.00) 10^3/uL Lymph # (Auto) 0.70 L (1.00-4.00) 10^3/uL [place] # (Auto) 1.11 H (0.10-0.80) 10^3/uL Eos # (Auto) 0.07 L (0.10-0.30) 10^3/uL Baso # (Auto) 0.04 (0.00-0.10) 10^3/uL PT TNP INR 4.5 H* (0.9-1.1) Sodium 126 L (136-145) mmol/L Potassium 4.3 (3.3-5.3) mmol/L Chloride 80 L* D (98-115) mmol/L Carbon Dioxide 32.3 H (21.0-32.0) mmol/L Anion Gap 18.0 H (5-15) mmol/L BUN 17 (6-25) mg/dL Creatinine 0.76 (0.51-1.17) mg/dL Est Cr Clr Drug Dosing 57.11 mL/min Estimated GFR (MDRD) > 60 mL/min Glucose 127 H (75 - 99) mg/dL Calcium 9.4 (8.7-10.3) mg/dL Specimen Type Urine Color (YELLOW) Urine Appearance (CLEAR) Urine pH (5.0-9.0) Ur Specific [place] (1.005-1.030) Urine Protein (NEGATIVE) mg/dL Urine Glucose (UA) (NEGATIVE) mg/dL Urine Ketones (NEGATIVE) mg/dL Urine Occult Blood (NEGATIVE) Urine Nitrite (NEGATIVE) Urine Bilirubin (NEGATIVE) Urine Urobilinogen (0.2-1.0) E.U./dL Ur Leukocyte Esterase (NEGATIVE) Urine RBC (0-5) /HPF Urine WBC (0-5) /HPF Ur Epithelial Cells /LPF Urine Bacteria (NONE TO FEW) /HPF 06/01/19 06/01/19 06/01/19 Range/Units 01:45 07:15 07:15 WBC 8.84 (5.00-10.00) 10^3/uL RBC 3.44 L (3.80-5.50) 10^6/uL Hgb 13.0 (12.0-16.0) g/dL Hct 35.2 L (37.0-47.0) % MCV 102.3 H (82.0-92.0) fL MCH 37.8 H (27.0-31.0) pg MCHC 36.9 H (32.0-36.0) g/dL RDW 11.8 (11.5-14.5) % Plt Count 245 (150-400) 10^3/uL MPV 9.7 (7.4-10.4) fL Immature Gran % (Auto) 0.2 (0.0-5.0) % Neut % (Auto) 73.2 H (50.0-70.0) % Lymph % (Auto) 9.5 L (20.0-40.0) % [place] % (Auto) 12.3 H (2.0-8.0) % Eos % (Auto) 4.1 H (1.0-3.0) % Baso % (Auto) 0.7 (0.0-1.0) % Immature Gran # (Auto) 0.02 (0.00-0.50) 10^3/uL Neut # (Auto) 6.47 (2.50-7.00) 10^3/uL Lymph # (Auto) 0.84 L (1.00-4.00) 10^3/uL [place] # (Auto) 1.09 H (0.10-0.80) 10^3/uL Eos # (Auto) 0.36 H (0.10-0.30) 10^3/uL Baso # (Auto) 0.06 (0.00-0.10) 10^3/uL PT INR (0.9-1.1) Sodium 128 L (136-145) mmol/L Potassium 3.5 (3.3-5.3) mmol/L Chloride 91 L (98-115) mmol/L Carbon Dioxide 31.4 (21.0-32.0) mmol/L Anion Gap 9.1 (5-15) mmol/L BUN 11 (6-25) mg/dL Creatinine 0.67 (0.51-1.17) mg/dL Est Cr Clr Drug Dosing 64.78 mL/min Estimated GFR (MDRD) > 60 mL/min Glucose 103 H (75 - 99) mg/dL Calcium 8.3 L (8.7-10.3) mg/dL Specimen Type Urinvoid Urine Color Yellow (YELLOW) Urine Appearance Clear (CLEAR) Urine pH 6.5 (5.0-9.0) Ur Specific [place] 1.010 (1.005-1.030) Urine Protein Negative (NEGATIVE) mg/dL Urine Glucose (UA) Negative (NEGATIVE) mg/dL Urine Ketones Negative (NEGATIVE) mg/dL Urine Occult Blood Trace-lysed H (NEGATIVE) Urine Nitrite Negative (NEGATIVE) Urine Bilirubin Negative (NEGATIVE) Urine Urobilinogen 0.2 (0.2-1.0) E.U./dL Ur Leukocyte Esterase Negative (NEGATIVE) Urine RBC 0-5 (0-5) /HPF Urine WBC 0-5 (0-5) /HPF Ur Epithelial Cells Occasional /LPF Urine Bacteria Not seen (NONE TO FEW) /HPF 06/01/19 Range/Units 07:15 WBC (5.00-10.00) 10^3/uL RBC (3.80-5.50) 10^6/uL Hgb (12.0-16.0) g/dL Hct (37.0-47.0) % MCV (82.0-92.0) fL MCH (27.0-31.0) pg MCHC (32.0-36.0) g/dL RDW (11.5-14.5) % Plt Count (150-400) 10^3/uL MPV (7.4-10.4) fL Immature Gran % (Auto) (0.0-5.0) % Neut % (Auto) (50.0-70.0) % Lymph % (Auto) (20.0-40.0) % [place] % (Auto) (2.0-8.0) % Eos % (Auto) (1.0-3.0) % Baso % (Auto) (0.0-1.0) % Immature Gran # (Auto) (0.00-0.50) 10^3/uL Neut # (Auto) (2.50-7.00) 10^3/uL Lymph # (Auto) (1.00-4.00) 10^3/uL [place] # (Auto) (0.10-0.80) 10^3/uL Eos # (Auto) (0.10-0.30) 10^3/uL Baso # (Auto) (0.00-0.10) 10^3/uL PT 37.1 H D INR 3.8 H (0.9-1.1) Sodium (136-145) mmol/L Potassium (3.3-5.3) mmol/L Chloride (98-115) mmol/L Carbon Dioxide (21.0-32.0) mmol/L Anion Gap (5-15) mmol/L BUN (6-25) mg/dL Creatinine (0.51-1.17) mg/dL Est Cr Clr Drug Dosing mL/min Estimated GFR (MDRD) mL/min Glucose (75 - 99) mg/dL Calcium (8.7-10.3) mg/dL Specimen Type Urine Color (YELLOW) Urine Appearance (CLEAR) Urine pH (5.0-9.0) Ur Specific [place] (1.005-1.030) Urine Protein (NEGATIVE) mg/dL Urine Glucose (UA) (NEGATIVE) mg/dL Urine Ketones (NEGATIVE) mg/dL Urine Occult Blood (NEGATIVE) Urine Nitrite (NEGATIVE) Urine Bilirubin (NEGATIVE) Urine Urobilinogen (0.2-1.0) E.U./dL Ur Leukocyte Esterase (NEGATIVE) Urine RBC (0-5) /HPF Urine WBC (0-5) /HPF Ur Epithelial Cells /LPF Urine Bacteria (NONE TO FEW) /HPF Med Orders - Current: Current Medications Acetaminophen (Tylenol Extra Strength) 500 mg PO TID [facility] Last Admin: 06/01/19 09:23 Dose: 500 mg Hydrocodone Bitart/Acetaminophen ([place] 325-5 Mg) 1 - 2 tab PO BID PRN PRN Reason: Pain Last Admin: 06/01/19 01:22 Dose: 1 tab Albuterol (Ventolin Hfa) 1 - 2 gm INH Q4H PRN PRN Reason: Shortness of Breath Amlodipine Besylate (Norvasc) 5 mg PO DAILY [facility] Last Admin: 06/01/19 09:24 Dose: 5 mg Bisacodyl (Dulcolax) 5 mg PO DAILY [facility] Last Admin: 06/01/19 09:25 Dose: 5 mg Calcium Citrate (Calcium Citrate + D) 2 tab PO DAILY [facility] Last Admin: 06/01/19 09:21 Dose: 2 tab Carbamazepine (Tegretol Tab) 200 mg PO WITHBREAKFAST [facility] Last Admin: 06/01/19 09:23 Dose: 200 mg Carbamazepine (Tegretol Tab) 400 mg PO BEDTIME [facility] Last Admin: 05/31/19 22:05 Dose: 400 mg Cetirizine HCl (Zyrtec) 10 mg PO DAILY [facility] Last Admin: 06/01/19 09:28 Dose: 10 mg Cholecalciferol (Vitamin D3) 50 mcg PO DAILY [facility] Last Admin: 06/01/19 09:22 Dose: 50 mcg Clonidine HCl (Catapres) 0.2 mg PO BID [facility] Last Admin: 06/01/19 09:24 Dose: 0.2 mg Diclofenac Sodium (Voltaren) 75 mg PO BIDMEALS [facility] Last Admin: 06/01/19 09:32 Dose: Not Given Diclofenac Sodium (Voltaren 1% Gel) 0 gm TOP BID PRN PRN Reason: pain Last Admin: 06/01/19 00:16 Dose: 1 applic Sodium Chloride (Normal Saline) 1,000 mls @ 125 mls/hr IV ASDIRECTED [facility] Last Admin: 06/01/19 01:45 Dose: 125 mls/hr Lidocaine (Lidoderm 5%) 700 mg TOP DAILY [facility] Last Admin: 06/01/19 09:26 Dose: 700 mg Losartan Potassium (Cozaar) 100 mg PO DAILY [facility] Last Admin: 06/01/19 09:22 Dose: 100 mg Miscellaneous Information (Remove Patch) 1 ea TRDERM BEDTIME [facility] Last Admin: 05/31/19 22:06 Dose: 1 ea Montelukast Sodium (Singulair) 10 mg PO BEDTIME [facility] Last Admin: 05/31/19 22:05 Dose: 10 mg Multivitamins/Minerals (Centrum) 1 tab PO DAILY [facility] Last Admin: 06/01/19 09:21 Dose: 1 tab Naloxegol (Movantik) 12.5 mg PO DAILY [facility] Last Admin: 06/01/19 09:23 Dose: 12.5 mg Phytonadione (Vitamin K) 100 mcg PO 1800 [facility] Last Admin: 05/31/19 18:51 Dose: 100 mcg Polysaccharide Iron Complex (Ferrex 150) 150 mg PO DAILY [facility] Last Admin: 06/01/19 09:25 Dose: 150 mg Pravastatin Sodium (Pravachol) 20 mg PO BEDTIME [facility] Last Admin: 05/31/19 22:07 Dose: Not Given Umeclidinium/Vilanterol (Anoro Ellipta 62.5-25 Mcg) 0 mcg IH DAILY [facility] Warfarin Sodium (Pharmacy To Dose - Warfarin) 1 dose .XX ASDIRECTED [facility] Discontinued Medications Sodium Chloride (Normal Saline) 1,000 mls @ 999 mls/hr IV .BOLUS ONE Stop: 05/31/19 16:07 Last Admin: 05/31/19 15:10 Dose: 999 mls/hr Ketorolac Tromethamine (Toradol) 30 mg IVPUSH ONETIME ONE Stop: 05/31/19 13:57 Last Admin: 05/31/19 15:15 Dose: 30 mg Sodium Chloride (Saline Flush) 10 ml FLUSH Q8HR PRN PRN Reason: keep vein open Warfarin Sodium (Coumadin) 7.5 mg PO MOWEFR [facility] Last Admin: 06/01/19 02:34 Dose: Not Given Warfarin Sodium (Coumadin) 10 mg PO SUTUTHSA VIET - Exam Quality Assessment: Denies: Supplemental Oxygen General: Reports: Alert, Oriented Lungs: Reports: Clear to Auscultation, Normal Respiratory Effort Cardiovascular: Reports: Regular Rate, Regular Rhythm GI/Abdominal Exam: Soft Rectal (Female) Exam: Deferred Back Exam: Denies: CVA Tenderness (L), CVA Tenderness (R) Extremities: No Pedal Edema Psy/Mental Status: Reports: Alert, Normal Affect, Normal Mood, Anxious
--- NOTE | 2019-06-01 10:22 | PCM.HP.2 ---
H&P History of Present Illness - General Date of Service: 06/01/19 Admit Problem/Dx: Admission Diagnosis/Problem Admission Diagnosis/Problem Hyponatremia - History of Present Illness Initial Comments - Free Text/Narative: 79 YO WF presented to ER complaining of left hip pain. 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 Pt reports she was home alone today when she developed the pain and felt like she was going to fall. Pt reports she is afraid to be alone at home due to falling and no one being there to help her. Pt reports every time her leaves the house she become anxious due to possibility of falling. Pt alert and oriented x 4. Pt able to transfer with some difficulty in the ED however needed some assistance. Hospital course Left Hip Pain Score (Numeric/FACES): 4 - Related Data Allergies/Adverse Reactions: Allergies Allergy/AdvReac Type Severity Reaction Status Date / Time budesonide [From Pulmicort] Allergy Nausea Verified 05/24/19 02:01 cephalexin Allergy Diarrhea Verified 05/24/19 02:01 methocarbamol [From Robaxin] Allergy Rash Verified 05/24/19 02:01 nitrofurantoin Allergy Hives Verified 05/24/19 02:01 macrocrystalline [From Macrodantin] penicillin V Allergy Hives Verified 05/24/19 02:01 sulfamethoxazole Allergy Diarrhea Verified 05/24/19 02:01 [From Bactrim] trimethoprim [From Bactrim] Allergy Diarrhea Verified 05/24/19 02:01 Home Medications: Home Meds Alendronate Sodium [Fosamax] 70 mg PO WEEKLY 09/01/15 [History] Phytonadione [Vitamin K] 100 mcg PO 1800 09/01/15 [History] Pravastatin [Pravachol] 20 mg PO BEDTIME 09/01/15 [History] carBAMazepine [Carbamazepine] 200 mg PO WITHBREAKFAST 09/01/15 [History] carBAMazepine [Carbamazepine] 400 mg PO BEDTIME 09/01/15 [History] Bisacodyl [Dulcolax] 5 mg PO DAILY 06/17/16 [History] Cholecalciferol (Vitamin D3) [Vitamin D3] 2,000 unit PO DAILY 06/17/16 [History] Multivitamin with Minerals [Multiple Vitamin] 1 tab PO DAILY 06/17/16 [History] Warfarin [Coumadin] 7.5 mg PO MOWEFR 06/17/16 [History] Iron Ps Cmplx/Vit B12/Fa [Poly-Iron 150 Forte] 150 mg PO DAILY 01/10/17 [History ] Calcium Carb & Citrate/Vit D3 [Calcium + D3 ER Tablet] 1 each PO DAILY 05/27/17 [History] Fluticasone Propionate [Flonase Allergy Relief] 1 spray NASBOTH BID 05/27/17 [ History] amLODIPine [Norvasc] 5 mg PO DAILY 05/27/17 [History] Diclofenac Sodium [Voltaren 1% Gel] 1 applic TOP BID 03/19/19 [History] Losartan [Cozaar] 100 mg PO DAILY 03/19/19 [History] Albuterol Sulfate [Albuterol Sulfate Hfa] 1 - 2 puff IH Q4H PRN 05/31/19 [ History] Cetirizine HCl [Zyrtec] 10 mg PO DAILY 05/31/19 [History] Diphenhyd/Lidocaine/Nystatin [Magic Mouthwash] 15 ml MM BID 05/31/19 [History] Hydrocodone/Acetaminophen [Hydrocodon-Acetaminophen 5-325] 1 - 2 tab PO BID PRN 05/31/19 [History] Lidocaine 5% [Lidoderm 5%] 1 patch TOP DAILY 05/31/19 [History] Montelukast Sodium [Singulair] 10 mg PO BEDTIME 05/31/19 [History] Naloxegol Oxalate [Movantik] 12.5 mg PO DAILY 05/31/19 [History] Saliva Stimulant Comb. No.5 [Salivasure] 1 each MM Q2H PRN 05/31/19 [History] Triamcinolone Acetonide [Oralone 0.1% Dental Paste] 1 gm TOP QID 05/31/19 [ History] Umeclidinium Brm/Vilanterol Tr [Anoro Ellipta 62.5-25 MCG] 1 inh IH DAILY [History] Warfarin [Coumadin] 10 mg PO SUTUTHSA 05/31/19 [History] amLODIPine Besylate [Norvasc] 5 mg PO DAILY 05/31/19 [History] cloNIDine HCl [Catapres] 0.2 mg PO BID 05/31/19 [History] Acetaminophen [Tylenol Arthritis] 650 mg PO Q6H #90 tablet.er 06/01/19 [Rx] Atenolol 50 mg PO DAILY #0 06/01/19 [Rx] Past Medical History HEENT History: Reports: Impaired Vision Cardiovascular History: Reports: Afib, High Cholesterol Respiratory History: Reports: Asthma Gastrointestinal History: Reports: Chronic Constipation, GERD Genitourinary History: Reports: UTI, Recurrent VALUER History: Reports: Musculoskeletal History: Reports: Arthritis, Back Pain, Chronic Neurological History: Reports: None Endocrine/Metabolic History: Reports: None Hematologic History: Reports: Iron Deficiency Immunologic History: Reports: None Oncologic (Cancer) History: Reports: None Dermatologic History: Reports: None - Infectious Disease History Infectious Disease History: Reports: None - Past Surgical History Head Surgeries/Procedures: Reports: None GI Surgical History: Reports: Cholecystectomy, Colonoscopy Female Surgical History: Reports: Section Social & Family History - Family History HEENT: Reports: None Cardiac: Reports: High Cholesterol, Hypertension Respiratory: Reports: None GI: Reports: None : Reports: None OBGYN: Reports: None Musculoskeletal: Reports: None Neurological: Reports: None Psychiatric: Reports: Other (See Below) Endocrine/Metabolic: Reports: Diabetes, type II Hematologic: Reports: None Immunologic: Reports: None Dermatologic: Reports: None Oncologic: Reports: None - Tobacco Use Smoking Status *Q: Never Smoker Second Hand Smoke Exposure: No - Caffeine Use Caffeine Use: Reports: Coffee, Soda - Recreational Drug Use Recreational Drug Use: No H&P Review of Systems - Review of Systems: Review Of Systems: See Below General: Denies: Decreased Appetite, Weight Loss HEENT: Reports: No Symptoms Pulmonary: Reports: No Symptoms Cardiovascular: Reports: No Symptoms Gastrointestinal: Reports: No Symptoms Genitourinary: Reports: No Symptoms Musculoskeletal: Reports: Joint Pain Skin: Reports: No Symptoms Psychiatric: Denies: Confusion Neurological: Reports: No Symptoms Hematologic/Lymphatic: Reports: No Symptoms Immunologic: Reports: No Symptoms Exam - Exam Exam: See Below - Vital Signs Vital Signs: Last Vital Signs Temp 97.6 F 06/01/19 06:52 Pulse 72 06/01/19 06:52 Resp 16 06/01/19 06:52 BP 145/91 H 06/01/19 09:24 Pulse Ox 94 L 06/01/19 06:52 Weight: 207 lb 3 oz - Exam General: Alert, Oriented, 4 Neck: Supple, Trachea Midline, 2 Lungs: Clear to Auscultation, Normal Respiratory Effort Cardiovascular: Regular Rate, Regular Rhythm GI/Abdominal Exam: Soft Back Exam: No: CVA Tenderness (L), CVA Tenderness (R) Peripheral Pulses: 2+: Radial (L), Radial (R) Skin: Warm, Dry, Intact - Patient Data Lab Results Last 24 hrs: Laboratory Results - last 24 hr 05/31/19 05/31/19 05/31/19 Range/Units 14:06 14:06 20:05 WBC 9.80 (5.00-10.00) 10^3/uL RBC 3.80 (3.80-5.50) 10^6/uL Hgb 14.4 (12.0-16.0) g/dL Hct 38.3 (37.0-47.0) % MCV 100.8 H D (82.0-92.0) fL MCH 37.9 H (27.0-31.0) pg MCHC 37.6 H (32.0-36.0) g/dL RDW 11.7 (11.5-14.5) % Plt Count 304 (150-400) 10^3/uL MPV 9.8 (7.4-10.4) fL Immature Gran % (Auto) 0.3 (0.0-5.0) % Neut % (Auto) 80.2 H (50.0-70.0) % Lymph % (Auto) 7.1 L (20.0-40.0) % [place] % (Auto) 11.3 H (2.0-8.0) % Eos % (Auto) 0.7 L (1.0-3.0) % Baso % (Auto) 0.4 (0.0-1.0) % Immature Gran # (Auto) 0.03 (0.00-0.50) 10^3/uL Neut # (Auto) 7.85 H (2.50-7.00) 10^3/uL Lymph # (Auto) 0.70 L (1.00-4.00) 10^3/uL [place] # (Auto) 1.11 H (0.10-0.80) 10^3/uL Eos # (Auto) 0.07 L (0.10-0.30) 10^3/uL Baso # (Auto) 0.04 (0.00-0.10) 10^3/uL PT TNP INR 4.5 H* (0.9-1.1) Sodium 126 L (136-145) mmol/L Potassium 4.3 (3.3-5.3) mmol/L Chloride 80 L* D (98-115) mmol/L Carbon Dioxide 32.3 H (21.0-32.0) mmol/L Anion Gap 18.0 H (5-15) mmol/L BUN 17 (6-25) mg/dL Creatinine 0.76 (0.51-1.17) mg/dL Est Cr Clr Drug Dosing 57.11 mL/min Estimated GFR (MDRD) > 60 mL/min Glucose 127 H (75 - 99) mg/dL Calcium 9.4 (8.7-10.3) mg/dL Specimen Type Urine Color (YELLOW) Urine Appearance (CLEAR) Urine pH (5.0-9.0) Ur Specific [place] (1.005-1.030) Urine Protein (NEGATIVE) mg/dL Urine Glucose (UA) (NEGATIVE) mg/dL Urine Ketones (NEGATIVE) mg/dL Urine Occult Blood (NEGATIVE) Urine Nitrite (NEGATIVE) Urine Bilirubin (NEGATIVE) Urine Urobilinogen (0.2-1.0) E.U./dL Ur Leukocyte Esterase (NEGATIVE) Urine RBC (0-5) /HPF Urine WBC (0-5) /HPF Ur Epithelial Cells /LPF Urine Bacteria (NONE TO FEW) /HPF 06/01/19 06/01/19 06/01/19 Range/Units 01:45 07:15 07:15 WBC 8.84 (5.00-10.00) 10^3/uL RBC 3.44 L (3.80-5.50) 10^6/uL Hgb 13.0 (12.0-16.0) g/dL Hct 35.2 L (37.0-47.0) % MCV 102.3 H (82.0-92.0) fL MCH 37.8 H (27.0-31.0) pg MCHC 36.9 H (32.0-36.0) g/dL RDW 11.8 (11.5-14.5) % Plt Count 245 (150-400) 10^3/uL MPV 9.7 (7.4-10.4) fL Immature Gran % (Auto) 0.2 (0.0-5.0) % Neut % (Auto) 73.2 H (50.0-70.0) % Lymph % (Auto) 9.5 L (20.0-40.0) % [place] % (Auto) 12.3 H (2.0-8.0) % Eos % (Auto) 4.1 H (1.0-3.0) % Baso % (Auto) 0.7 (0.0-1.0) % Immature Gran # (Auto) 0.02 (0.00-0.50) 10^3/uL Neut # (Auto) 6.47 (2.50-7.00) 10^3/uL Lymph # (Auto) 0.84 L (1.00-4.00) 10^3/uL [place] # (Auto) 1.09 H (0.10-0.80) 10^3/uL Eos # (Auto) 0.36 H (0.10-0.30) 10^3/uL Baso # (Auto) 0.06 (0.00-0.10) 10^3/uL PT INR (0.9-1.1) Sodium 128 L (136-145) mmol/L Potassium 3.5 (3.3-5.3) mmol/L Chloride 91 L (98-115) mmol/L Carbon Dioxide 31.4 (21.0-32.0) mmol/L Anion Gap 9.1 (5-15) mmol/L BUN 11 (6-25) mg/dL Creatinine 0.67 (0.51-1.17) mg/dL Est Cr Clr Drug Dosing 64.78 mL/min Estimated GFR (MDRD) > 60 mL/min Glucose 103 H (75 - 99) mg/dL Calcium 8.3 L (8.7-10.3) mg/dL Specimen Type Urinvoid Urine Color Yellow (YELLOW) Urine Appearance Clear (CLEAR) Urine pH 6.5 (5.0-9.0) Ur Specific [place] 1.010 (1.005-1.030) Urine Protein Negative (NEGATIVE) mg/dL Urine Glucose (UA) Negative (NEGATIVE) mg/dL Urine Ketones Negative (NEGATIVE) mg/dL Urine Occult Blood Trace-lysed H (NEGATIVE) Urine Nitrite Negative (NEGATIVE) Urine Bilirubin Negative (NEGATIVE) Urine Urobilinogen 0.2 (0.2-1.0) E.U./dL Ur Leukocyte Esterase Negative (NEGATIVE) Urine RBC 0-5 (0-5) /HPF Urine WBC 0-5 (0-5) /HPF Ur Epithelial Cells Occasional /LPF Urine Bacteria Not seen (NONE TO FEW) /HPF 06/01/19 Range/Units 07:15 WBC (5.00-10.00) 10^3/uL RBC (3.80-5.50) 10^6/uL Hgb (12.0-16.0) g/dL Hct (37.0-47.0) % MCV (82.0-92.0) fL MCH (27.0-31.0) pg MCHC (32.0-36.0) g/dL RDW (11.5-14.5) % Plt Count (150-400) 10^3/uL MPV (7.4-10.4) fL Immature Gran % (Auto) (0.0-5.0) % Neut % (Auto) (50.0-70.0) % Lymph % (Auto) (20.0-40.0) % [place] % (Auto) (2.0-8.0) % Eos % (Auto) (1.0-3.0) % Baso % (Auto) (0.0-1.0) % Immature Gran # (Auto) (0.00-0.50) 10^3/uL Neut # (Auto) (2.50-7.00) 10^3/uL Lymph # (Auto) (1.00-4.00) 10^3/uL [place] # (Auto) (0.10-0.80) 10^3/uL Eos # (Auto) (0.10-0.30) 10^3/uL Baso # (Auto) (0.00-0.10) 10^3/uL PT 37.1 H D INR 3.8 H (0.9-1.1) Sodium (136-145) mmol/L Potassium (3.3-5.3) mmol/L Chloride (98-115) mmol/L Carbon Dioxide (21.0-32.0) mmol/L Anion Gap (5-15) mmol/L BUN (6-25) mg/dL Creatinine (0.51-1.17) mg/dL Est Cr Clr Drug Dosing mL/min Estimated GFR (MDRD) mL/min Glucose (75 - 99) mg/dL Calcium (8.7-10.3) mg/dL Specimen Type Urine Color (YELLOW) Urine Appearance (CLEAR) Urine pH (5.0-9.0) Ur Specific Norton (1.005-1.030) Urine Protein (NEGATIVE) mg/dL Urine Glucose (UA) (NEGATIVE) mg/dL Urine Ketones (NEGATIVE) mg/dL Urine Occult Blood (NEGATIVE) Urine Nitrite (NEGATIVE) Urine Bilirubin (NEGATIVE) Urine Urobilinogen (0.2-1.0) E.U./dL Ur Leukocyte Esterase (NEGATIVE) Urine RBC (0-5) /HPF Urine WBC (0-5) /HPF Ur Epithelial Cells /LPF Urine Bacteria (NONE TO FEW) /HPF Result Diagrams: 06/01/19 07:15 06/01/19 07:15 Problem List Initiated/Reviewed/Updated: Yes Orders Last 24hrs: Active Orders 24 hr Category Date Time Status Patient Status [ADT] Routine ADT 05/31/19 15:12 Active Oxygen Therapy [RC] PRN Care 05/31/19 15:12 Active Ready for Discharge [RC] PER UNIT ROUTINE Care 06/01/19 10:14 Ordered Up With Assistance [RC] ASDIRECTED Care 05/31/19 15:12 Active VTE/DVT Education [RC] PER UNIT ROUTINE Care 05/31/19 15:12 Active Vital Signs [RC] 0700,1100,1500,1900,2300,0300 Care 05/31/19 15:12 Active Consult to Case Management/Senior Hardware Engineer [CONS] Cons 05/31/19 15:12 Active Routine PT Evaluation and Treatment [CONS] Routine Cons 05/31/19 22:08 Active Regular Diet [DIET] Diet 05/31/19 Dinner Active INR,PT,PROTHROMBIN TIME [COAG] DAILY Lab 06/02/19 05:11 Ordered INR,PT,PROTHROMBIN TIME [COAG] DAILY Lab 06/03/19 05:11 Ordered INR,PT,PROTHROMBIN TIME [COAG] DAILY Lab 06/04/19 05:11 Ordered INR,PT,PROTHROMBIN TIME [COAG] DAILY Lab 06/05/19 05:11 Ordered Acetaminophen [Tylenol Extra Strength] Med 05/31/19 21:00 Active 500 mg PO TID Acetaminophen/HYDROcodone [[place] 325-5 MG] Med 05/31/19 17:40 Active 1 - 2 tab PO BID PRN Albuterol [Ventolin HFA] Med 05/31/19 17:29 Active 1 - 2 gm INH Q4H PRN Bisacodyl [Dulcolax] Med 06/01/19 09:00 Active 5 mg PO DAILY Calcium Citrate/Vitamin D3 [Calcium Citrate + D] Med 06/01/19 09:00 Active 2 tab PO DAILY Cetirizine [ZyrTEC] Med 06/01/19 09:00 Active 10 mg PO DAILY Cholecalciferol (Vitamin D3) [Vitamin D3] Med 06/01/19 09:00 Active 50 mcg PO DAILY Diclofenac Sodium [Voltaren 1% Gel] Med 05/31/19 17:40 Active 0 gm TOP BID PRN Diclofenac Sodium [Voltaren] Med 05/31/19 18:00 Active 75 mg PO BIDMEALS FA/Lycopene/Lut/MV,Ca,Iron,Min [Centrum] Med 06/01/19 09:00 Active 1 tab PO DAILY Iron Polysaccharides Complex [Ferrex 150] Med 06/01/19 09:00 Active 150 mg PO DAILY Lidocaine 5% [Lidoderm 5%] Med 06/01/19 09:00 Active 700 mg TOP DAILY Losartan [Cozaar] Med 06/01/19 09:00 Active 100 mg PO DAILY Montelukast [Singulair] Med 05/31/19 21:00 Active 10 mg PO BEDTIME Naloxegol Oxalate [Movantik] Med 06/01/19 09:00 Active 12.5 mg PO DAILY Pharmacy to Dose - Warfarin Med 06/01/19 00:30 Pending 1 dose .XX ASDIRECTED Phytonadione [Vitamin K] Med 05/31/19 18:00 Active 100 mcg PO 1800 Pravastatin [Pravachol] Med 05/31/19 21:00 Active 20 mg PO BEDTIME Remove Patch Med 05/31/19 21:00 Active 1 ea TRDERM BEDTIME Sodium Chloride 0.9% [Normal Saline] 1,000 ml Med 05/31/19 15:15 Active IV ASDIRECTED Umeclidinium Brm/Vilanterol Tr [Anoro Ellipta 62.5-25 Med 06/01/19 09:00 Active MCG] 0 mcg IH DAILY amLODIPine [Norvasc] Med 06/01/19 09:00 Active 5 mg PO DAILY carBAMazepine [TEGretol Tab] Med 06/01/19 08:00 Active 200 mg PO WITHBREAKFAST carBAMazepine [TEGretol Tab] Med 05/31/19 21:00 Active 400 mg PO BEDTIME cloNIDine [Catapres] Med 05/31/19 21:00 Active 0.2 mg PO BID Peripheral IV Insertion Adult [OM.PC] Routine Oth 05/31/19 13:56 Ordered Resuscitation Status Routine Resus Stat 05/31/19 15:12 Ordered Medication Orders Acetaminophen (Tylenol Extra Strength) 500 mg PO TID [facility] Last Admin: 06/01/19 09:23 Dose: 500 mg Admin: 05/31/19 22:05 Dose: 500 mg Hydrocodone Bitart/Acetaminophen ([place] 325-5 Mg) 1 - 2 tab PO BID PRN PRN Reason: Pain Last Admin: 06/01/19 01:22 Dose: 1 tab Albuterol (Ventolin Hfa) 1 - 2 gm INH Q4H PRN PRN Reason: Shortness of Breath Amlodipine Besylate (Norvasc) 5 mg PO DAILY [facility] Last Admin: 06/01/19 09:24 Dose: 5 mg Bisacodyl (Dulcolax) 5 mg PO DAILY [facility] Last Admin: 06/01/19 09:25 Dose: 5 mg Calcium Citrate (Calcium Citrate + D) 2 tab PO DAILY [facility] Last Admin: 06/01/19 09:21 Dose: 2 tab Carbamazepine (Tegretol Tab) 200 mg PO WITHBREAKFAST [facility] Last Admin: 06/01/19 09:23 Dose: 200 mg Carbamazepine (Tegretol Tab) 400 mg PO BEDTIME [facility] Last Admin: 05/31/19 22:05 Dose: 400 mg Cetirizine HCl (Zyrtec) 10 mg PO DAILY [facility] Last Admin: 06/01/19 09:28 Dose: 10 mg Cholecalciferol (Vitamin D3) 50 mcg PO DAILY [facility] Last Admin: 06/01/19 09:22 Dose: 50 mcg Clonidine HCl (Catapres) 0.2 mg PO BID [facility] Last Admin: 06/01/19 09:24 Dose: 0.2 mg Admin: 05/31/19 22:05 Dose: 0.2 mg Diclofenac Sodium (Voltaren) 75 mg PO BIDMEALS [facility] Last Admin: 06/01/19 09:32 Dose: Not Given Admin: 05/31/19 18:51 Dose: 75 mg Diclofenac Sodium (Voltaren 1% Gel) 0 gm TOP BID PRN PRN Reason: pain Last Admin: 06/01/19 00:16 Dose: 1 applic Sodium Chloride (Normal Saline) 1,000 mls @ 125 mls/hr IV ASDIRECTED [facility] Last Admin: 06/01/19 01:45 Dose: 125 mls/hr Infusion: 06/01/19 01:10 Dose: 125 mls/hr Admin: 05/31/19 17:10 Dose: 125 mls/hr Lidocaine (Lidoderm 5%) 700 mg TOP DAILY [facility] Last Admin: 06/01/19 09:26 Dose: 700 mg Losartan Potassium (Cozaar) 100 mg PO DAILY [facility] Last Admin: 06/01/19 09:22 Dose: 100 mg Miscellaneous Information (Remove Patch) 1 ea TRDERM BEDTIME [facility] Last Admin: 05/31/19 22:06 Dose: 1 ea Montelukast Sodium (Singulair) 10 mg PO BEDTIME [facility] Last Admin: 05/31/19 22:05 Dose: 10 mg Multivitamins/Minerals (Centrum) 1 tab PO DAILY [facility] Last Admin: 06/01/19 09:21 Dose: 1 tab Naloxegol (Movantik) 12.5 mg PO DAILY [facility] Last Admin: 06/01/19 09:23 Dose: 12.5 mg Phytonadione (Vitamin K) 100 mcg PO 1800 [facility] Last Admin: 05/31/19 18:51 Dose: 100 mcg Polysaccharide Iron Complex (Ferrex 150) 150 mg PO DAILY [facility] Last Admin: 06/01/19 09:25 Dose: 150 mg Pravastatin Sodium (Pravachol) 20 mg PO BEDTIME [facility] Last Admin: 05/31/19 22:07 Dose: Umeclidinium/Vilanterol (Anoro Ellipta 62.5-25 Mcg) 0 mcg IH DAILY [facility] Warfarin Sodium (Pharmacy To Dose - Warfarin) 1 dose .XX ASDIRECTED [facility] Assessment/Plan Comment:: please use this history and physical also as DC summary a patient was discharged same day History 79 YO WF presented to ER complaining of left hip pain. 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 Pt reports she was home alone today when she developed the pain and felt like she was going to fall. Pt reports she is afraid to be alone at home due to falling and no one being there to help her. Pt reports every time her leaves the house she become anxious due to possibility of falling. Pt alert and oriented x 4. Pt able to transfer with some difficulty in the ED however needed some assistance. Hospital course Was uneventful. Patient's pain was managed with medications. He did have some mild hyponatremi -discontinue atenolol/chlorthalidone combo agent was discontinued. Since she was on Coumadin I discontinued her diclofenac sodium. We'll changed and increased her Tylenol formulation to help with her pain. DC' d her narcotics. career services coordinator was consulted and patient good candidate for long-term care as patient does have creasing ability to manage her own medications, ambulate, needs more assistance with frequent hospital/clinic Final diagnosis SI joint pain, acute on chronic lumbar back pain Fall risk Anxiety Hyponatremia Health ADL neglect medication changes/adjustments upon discharge --discontinue atenolol/chlorthalidone combo --increase atenonol from 25mg to 50mg daily --Discontinue diclofenac Sodium (on coumadin) --change and increased Tylenol formulation. --SEAN hurst Disposition Discharge from [facility], admit to long-term care [place] clinic - Mortality Measure Prognosis:: Good
[2019-06-01 12:12] VITALS: BP 98/60
[2019-06-01] MEDS ORDERED: Warfarin 5 MG Tab PO SCH (17:40)
== END 2019-06-01 15:41 | DRG 552 ==
LOC: KA.ED 13:07 → KA.MS 15:12
PROVIDERS: ADMIT Physician Assistant Medical; ATTEND Nurse Practitioner Family
DX: M53.3 Sacrococcygeal disorders, not elsewhere classified (principal); F32.9 Major depressive disorder, single episode, unspecified; E87.1 Hypo-osmolality and hyponatremia; M25.552 Pain in left hip; G89.29 Other chronic pain; M54.5 Low back pain; F41.9 Anxiety disorder, unspecified; H54.7 Unspecified visual loss; K59.00 Constipation, unspecified; I48.91 Unspecified atrial fibrillation; M54.9 Dorsalgia, unspecified; E78.00 Pure hypercholesterolemia, unspecified; J45.909 Unspecified asthma, uncomplicated; K21.9 Gastro-esophageal reflux disease without esophagitis; E61.1 Iron deficiency; K59.09 Other constipation; M19.90 Unspecified osteoarthritis, unspecified site; Z87.440 Personal history of urinary (tract) infections; Z90.49 Acquired absence of other specified parts of digestive tract; Z88.1 Allergy status to other antibiotic agents; Z88.8 Allergy status to other drugs, medicaments and biological substances; Z88.0 Allergy status to penicillin; Z88.2 Allergy status to sulfonamides; Z79.01 Long term (current) use of anticoagulants; Z79.899 Other long term (current) drug therapy; Z91.81 History of falling
CPT/HCPCS: 36415; 80048; 85025; 93005; 96361; 99284; J7030; 36416; 81001; 85610; 96374; 97162-GP; A9270-GY; J1885

== ENCOUNTER 2020-12-20 10:22 | Inpatient (IN) | payer MEDICARE, MEDICAID ==
[2020-12-20] MEDS ORDERED: Albuterol/Ipratropium 3.0-0.5 MG/3 ML Neb Soln NEB ONE ×2 (10:39→17:50)
[2020-12-20] MEDS ORDERED: Sodium Chloride 0.9% 1,000 ML IV SCH (10:45)
[2020-12-20 10:54] LABS: ANION GAP 11.9 mmol/L (5-15); CHLORIDE,CL 99 mmol/L (98-107); SODIUM,NA 137 mmol/L (136-145)
--- NOTE | 2020-12-20 11:29 | CR ---
[id number] RAD/RAD Chest PA or AP 1V EXAM: SINGLE VIEW CHEST. INDICATION: HYPOXIA COMPARISON: CORRELATION IS MADE WITH OCTOBER 29, 2018 FINDINGS: Extensive bilateral infiltrates are seen The cardiac silhouette is stable IMPRESSION: EXTENSIVE BILATERAL PNEUMONIA Elliott Mims MD 12/20/20 1128 Thank you for allowing us to participate in the care of your patient.
--- NOTE | 2020-12-20 13:10 | EDM.PDOC ---
ED HPI GENERAL MEDICAL PROBLEM - General Chief Complaint: Respiratory Problem Stated Complaint: BREATHING DIFFICULTY Time Seen by Provider: 12/20/20 10:30 Source of Information: Reports: Patient, EMS, Prison Records, Old Records History Limitations: Reports: No Limitations - History of Present Illness INITIAL COMMENTS - FREE TEXT/NARRATIVE: 80-year-old female presents to the emergency room with dyspnea and tachypnea. She was treated for pneumonia and finished oral Levaquin 5 days ago. Reports she became increasingly short of breath and worsening yesterday. She is now brought into the emergency room for further evaluation transferred from [facility]. She was placed on a nonrebreather mask for low O2 saturations. On room air she was in the 70s percent. Nonrebreather mask at 12 L she had responded nicely to the high 90s percent. She has been afebrile but complaining of a cough. Her cough has been nonproductive. Her blood pressures were low and he was started on IV fluid I have 500 mL bolus. She was given a DuoNeb through her nonrebreather. Her respirations improved into the 20s initially she presented with 35 respirations. She had crackles in both lungs and at the mid lungs and apices were clear bilaterally. Chest x-ray revealed extensive bilateral infiltrates suggestive of extensive bilateral pneumonia. Her white count was elevated at 14,000 with a right shift. BNP was stable. Onset: Gradual Onset Date: 12/19/20 Duration: Week(s):, Getting Worse Location: Reports: Chest Severity: Severe Improves with: Reports: Other (O2) Worsens with: Reports: None Associated Symptoms: Reports: Cough, Shortness of Breath, Weakness. Denies: Chest Pain, Diaphoresis, Fever/Chills, Nausea/Vomiting Treatments [employer]: Reports: Oxygen - Related Data Allergies Allergy/AdvReac Type Severity Reaction Status Date / Time budesonide [From Pulmicort] Allergy Nausea Verified 05/24/19 02:01 cephalexin Allergy Diarrhea Verified 05/24/19 02:01 methocarbamol [From Robaxin] Allergy Rash Verified 05/24/19 02:01 nitrofurantoin Allergy Hives Verified 05/24/19 02:01 macrocrystalline [From Macrodantin] penicillin V Allergy Hives Verified 05/24/19 02:01 sulfamethoxazole Allergy Diarrhea Verified 05/24/19 02:01 [From Bactrim] trimethoprim [From Bactrim] Allergy Diarrhea Verified 05/24/19 02:01 Home Meds: Home Meds Alendronate Sodium [Fosamax] 70 mg PO WEEKLY 09/01/15 [History] Phytonadione [Vitamin K] 100 mcg PO 1800 09/01/15 [History] Pravastatin [Pravachol] 20 mg PO BEDTIME 09/01/15 [History] carBAMazepine [Carbamazepine] 200 mg PO WITHBREAKFAST 09/01/15 [History] carBAMazepine [Carbamazepine] 400 mg PO BEDTIME 09/01/15 [History] Bisacodyl [Dulcolax] 5 mg PO DAILY 06/17/16 [History] Cholecalciferol (Vitamin D3) [Vitamin D3] 2,000 unit PO DAILY 06/17/16 [History] Multivitamin with Minerals [Multiple Vitamin] 1 tab PO DAILY 06/17/16 [History] Warfarin [Coumadin] 7.5 mg PO WEEKLY 06/17/16 [History] Iron Ps Complex/B12/Folic Acid [Poly-Iron 150 Forte] 150 mg PO DAILY 01/10/17 [History] Losartan [Cozaar] 100 mg PO DAILY 03/19/19 [History] Albuterol Sulfate [Albuterol Sulfate Hfa] 1 puff IH Q4H PRN 05/31/19 [History] Cetirizine HCl [Zyrtec] 10 mg PO DAILY 05/31/19 [History] Montelukast Sodium [Singulair] 10 mg PO BEDTIME 05/31/19 [History] Saliva Stimulant Comb. No.5 [Salivasure] 1 each MM Q2H PRN 05/31/19 [History] Umeclidinium Brm/Vilanterol Tr [Anoro Ellipta 62.5-25 MCG] 1 inh IH DAILY 05/31/19 [History] Warfarin [Coumadin] 5 mg PO DAILY 05/31/19 [History] amLODIPine Besylate [Norvasc] 5 mg PO DAILY 05/31/19 [History] cloNIDine HCL [Catapres] 0.2 mg PO BID 05/31/19 [History] atenoloL [Atenolol] 50 mg PO DAILY #0 06/01/19 [Rx] Acetaminophen 1,000 mg PO BID 12/20/20 [History] Acetaminophen 325 mg PO Q4H PRN 12/20/20 [History] Calcium Carbonate/Vitamin D3 [Calcium 600-Vit D3 800 Tablet] 1 each PO DAILY 12/20/20 [History] Escitalopram Oxalate 10 mg PO DAILY 12/20/20 [History] traZODone 50 mg PO BEDTIME 12/20/20 [History] Past Medical History HEENT History: Reports: Impaired Vision Cardiovascular History: Reports: Afib, High Cholesterol, Hypertension Respiratory History: Reports: Asthma Gastrointestinal History: Reports: Chronic Constipation, GERD Genitourinary History: Reports: UTI, Recurrent [employer] History: Reports: Musculoskeletal History: Reports: Arthritis, Back Pain, Chronic Neurological History: Reports: Other (See Below) Other Neuro History: hx of epilepsy Psychiatric History: Reports: Anxiety Endocrine/Metabolic History: Reports: None Hematologic History: Reports: Iron Deficiency Immunologic History: Reports: None Oncologic (Cancer) History: Reports: None Dermatologic History: Reports: None - Infectious Disease History Infectious Disease History: Reports: None, Other (See Below) Other Infectious Disease History: Patient is unsure if she had any childhood diseases. - Past Surgical History Head Surgeries/Procedures: Reports: None HEENT Surgical History: Reports: Tonsillectomy Cardiovascular Surgical History: Reports: None GI Surgical History: Reports: Cholecystectomy, Colonoscopy Female Surgical History: Reports: Section Musculoskeletal Surgical History: Reports: Knee Replacement Social & Family History - Family History HEENT: Reports: None Cardiac: Reports: High Cholesterol, Hypertension Respiratory: Reports: None GI: Reports: None : Reports: None OBGYN: Reports: None Musculoskeletal: Reports: None Neurological: Reports: None Psychiatric: Reports: Other (See Below) Endocrine/Metabolic: Reports: Diabetes, type II Hematologic: Reports: None Immunologic: Reports: None Dermatologic: Reports: None Oncologic: Reports: None - Tobacco Use Tobacco Use Status *Q: Never Tobacco User Second Hand Smoke Exposure: No - Caffeine Use Caffeine Use: Reports: Coffee, Soda - Recreational Drug Use Recreational Drug Use: No ED ROS GENERAL - Review of Systems Review Of Systems: See Below Constitutional: Reports: Weakness HEENT: Reports: Glasses Respiratory: Reports: Shortness of Breath, Cough. Denies: Sputum Cardiovascular: Reports: Dyspnea on Exertion. Denies: Chest Pain Endocrine: Reports: No Symptoms GI/Abdominal: Reports: No Symptoms : Reports: No Symptoms Musculoskeletal: Reports: No Symptoms Skin: Reports: Cyanosis Neurological: Denies: Confusion Psychiatric: Reports: Anxiety Hematologic/Lymphatic: Reports: No Symptoms Immunologic: Reports: No Symptoms ED EXAM, GENERAL - Physical Exam Exam: See Below Exam Limited By: No Limitations General Appearance: Alert, Mild Distress, Obese Eye Exam: Bilateral Eye: EOMI Ears: Hearing Grossly Normal Nose: Normal Inspection Throat/Mouth: Normal Voice, No Airway Compromise Head: Atraumatic, Normocephalic Neck: Normal Inspection, Supple, Non-Tender, Full Range of Motion. No: Carotid Bruit, Lymphadenopathy (L), Lymphadenopathy (R) Respiratory/Chest: Respiratory Distress (mild), Crackles (bilateral bases and mid lobes, apices clear bilateral ), Wheezing. No: Retractions Cardiovascular: Irregularly Irregular Peripheral Pulses: 1+: Dorsalis Pedis (L), Dorsalis Pedis (R), 2+: Carotid (L), Carotid (R), Radial (L), Radial (R) GI/Abdominal: Normal Bowel Sounds, Soft, Non-Tender Back Exam: Normal Inspection Extremities: Normal Inspection, Non-Tender Neurological: Alert, Oriented, No Motor/Sensory Deficits Psychiatric: Anxious Skin Exam: Cool, Cyanosis (mild upon arrival ) Lymphatic: No Adenopathy #1 Interpretation EKG Date: 12/20/20 Rhythm: A-Fib [place]: Normal P-Wave: Present QRS: Other (low voltage QRS) ST-T: Normal QT: Normal Comparison: NA - No Prior EKG EKG Interpretation Comments: Trial fibrillation Low-voltage QRS [place] T wave abnormality, probably digitalis effect abnormal ECG Course - Vital Signs Last Recorded V/S: Last Vital Signs Temp 97.6 F 12/20/20 10:25 Pulse 103 H 12/20/20 10:25 Resp BP 87/51 L 12/20/20 10:25 Pulse Ox 75 L 12/20/20 10:25 - Orders/Labs/Meds Orders: Active Orders 24 hr Category Date Time Status EKG Documentation Completion [RC] ASDIRECTED Care 12/20/20 10:41 Active RT Aerosol Therapy [RC] ASDIRECTED Care 12/20/20 10:39 Active B-TYPE NATRIURETIC PEPTIDE,BNP [CHEM] Stat Lab 12/20/20 12:22 Ordered Sodium Chloride 0.9% [Normal Saline] 1,000 ml Med 12/20/20 10:45 Active IV ASDIRECTED Vancomycin 1 gm Med 12/20/20 12:30 Active Sodium Chloride 0.9% [Normal Saline] 250 ml IV Q24H EKG 12 Lead [EK] Stat Ther 12/20/20 10:40 Ordered Labs: Laboratory Tests 12/20/20 12/20/20 12/20/20 Range/Units 10:30 10:30 10:40 WBC 14.29 H (5.00-10.00) 10^3/uL RBC 3.23 L (3.80-5.50) 10^6/uL Hgb 11.4 L D (12.0-16.0) g/dL Hct 34.4 L (37.0-47.0) % MCV 106.5 H D (82.0-92.0) fL MCH 35.3 H (27.0-31.0) pg MCHC 33.1 (32.0-36.0) g/dL RDW 14.2 (11.5-14.5) % Plt Count 281 (150-400) 10^3/uL MPV 9.8 (7.4-10.4) fL Immature Gran % (Auto) 0.3 (0.0-5.0) % Neut % (Auto) 89.8 H (50.0-70.0) % Lymph % (Auto) 3.8 L (20.0-40.0) % [place] % (Auto) 5.7 (2.0-8.0) % Eos % (Auto) 0.1 L (1.0-3.0) % Baso % (Auto) 0.3 (0.0-1.0) % Neut # (Auto) 12.82 H (2.50-7.00) 10^3/uL Lymph # (Auto) 0.54 L (1.00-4.00) 10^3/uL [place] # (Auto) 0.82 H (0.10-0.80) 10^3/uL Eos # (Auto) 0.02 L (0.10-0.30) 10^3/uL Baso # (Auto) 0.05 (0.00-0.10) 10^3/uL Immature Gran # (Auto) 0.04 (0.00-0.50) 10^3/uL Sodium 137 (136-145) mmol/L Potassium 3.5 (3.5-5.1) mmol/L Chloride 99 (98-107) mmol/L Carbon Dioxide 29.6 (21.0-32.0) mmol/L Anion Gap 11.9 (5-15) mmol/L BUN 9 (7-18) mg/dL Creatinine 0.49 L (0.51-1.17) mg/dL Est Cr Clr Drug Dosing TNP Estimated GFR (MDRD) > 60 mL/min Glucose 172 H (70-140) mg/dL Lactic Acid 1.8 (0.4-2.0) mmol/L Calcium 8.3 L (8.7-10.3) mg/dL Total Bilirubin 0.8 (0.2-1.0) mg/dL AST 21 (15-37) U/L ALT 14 (14-63) U/L Alkaline Phosphatase 103 (46-116) U/L Total Protein 7.4 (6.4-8.2) g/dL Albumin 2.44 L (3.40-5.00) g/dL - Re-Assessments/Exams Free Text/Narrative Re-Assessment/Exam: 12/20/20 13:18 Responded favorably with her O2 saturations with a nonrebreather mask. She was transitioned to nasal cannula at 5 L and maintaining 95%. Chest x-ray revealed extensive bilateral pneumonia with extensive bilateral infiltrates seen. She was started on 1 g of IV Vanco and 750 mg of IV Levaquin. Departure - Departure Time of Disposition: 13:34 Disposition: Admitted As Inpatient 67 Condition: Fair Clinical Impression: Neutrophilic leukocytosis, Bilateral pulmonary infiltrates on CXR, Hypoxic episode, Tachypnea Pneumonia Qualifiers: Pneumonia type: due to unspecified organism Laterality: bilateral Lung location: unspecified part of lung Qualified Code(s): J18.9 - Pneumonia, unspecified organism - Discharge Information Referrals: Adonis Zuniga PA-C [Primary Care Provider] - Sepsis Event Note (ED) - Evaluation Sepsis Screening Result: No Definite Risk - Focused Exam Vital Signs: Vital Signs Temp Pulse BP Pulse Ox 12/20/20 10:25 97.6 F 103 H 87/51 L 75 L - My Orders Last 24 Hours: My Active Orders 12/20/20 10:39 RT Aerosol Therapy [RC] ASDIRECTED 12/20/20 10:40 EKG 12 Lead [EK] Stat 12/20/20 10:41 EKG Documentation Completion [RC] ASDIRECTED 12/20/20 10:45 Sodium Chloride 0.9% [Normal Saline] 1,000 ml IV ASDIRECTED 12/20/20 12:22 B-TYPE NATRIURETIC PEPTIDE,BNP [CHEM] Stat 12/20/20 12:30 Vancomycin 1 gm Sodium Chloride 0.9% [Normal Saline] 250 ml IV Q24H - Assessment/Plan Last 24 Hours: My Active Orders 12/20/20 10:39 RT Aerosol Therapy [RC] ASDIRECTED 12/20/20 10:40 EKG 12 Lead [EK] Stat 12/20/20 10:41 EKG Documentation Completion [RC] ASDIRECTED 12/20/20 10:45 Sodium Chloride 0.9% [Normal Saline] 1,000 ml IV ASDIRECTED 12/20/20 12:22 B-TYPE NATRIURETIC PEPTIDE,BNP [CHEM] Stat 12/20/20 12:30 Vancomycin 1 gm Sodium Chloride 0.9% [Normal Saline] 250 ml IV Q24H Assessment:: Leukocytosis with a right shift. Extensive bilateral infiltrates suggestive of bilateral lung pneumonia. Hypoxic Tachypneic Plan: 1. Discussion with Dr. Ortiz with patient. She had failed outpatient antibiotics. We will begin her on IV Vanco and Levaquin. We will also order an INR as she is on warfarin and a pro calcitonin. She is going to require continuation of supplemental oxygen currently on nasal cannula during this time. She was given a 500 mL bolus of fluids and is currently running at 100 mL/h.
[2020-12-20] MEDS ORDERED: Levofloxacin/Dextrose 5%-Water 500 MG in Premix Bag 1 BAG IV SCH ×2 (13:15→15:30)
[2020-12-20] MEDS ORDERED: Levofloxacin/Dextrose 5%-Water 250 MG in Premix Bag 1 BAG IV SCH ×2 (13:15→16:30)
[2020-12-20 16:53] VITALS: BP 136/88
[2020-12-20] MEDS ORDERED: Furosemide 40 MG/4 ML VIAL ONE (17:41)
[2020-12-20] MEDS ORDERED: Furosemide 40 MG/4 ML VIAL IVPUSH ONE (17:45)
[2020-12-20] MEDS ORDERED: LORazepam 2 MG/ML SDV IVPUSH ONE (18:02)
[2020-12-20 18:09] LABS: O2 DELIVERY DEVICE HI FLOW NASAL CANNU; PCO2 ARTERIAL 34 mmHG (35-45)
[2020-12-20 18:10] LABS: O2 SATURATION ARTERIAL 83 % (95-98); PO2 ARTERIAL 41 mmHG (80-105)
[2020-12-20 18:12] LABS: BASE EXCESS ARTERIAL 6 mmol/L (-2-3)
[2020-12-20 18:38] LABS: ANION GAP 14.3 mmol/L (5-15); CHLORIDE,CL 101 mmol/L (98-107); SODIUM,NA 139 mmol/L (136-145)
[2020-12-20] MEDS ORDERED: Etomidate 2 MG/ML 20 ML SDV IVPUSH ONE (19:25)
[2020-12-20] MEDS ORDERED: Succinylcholine 200 MG/10 ML MDV IV ONE (19:25)
[2020-12-20 20:07] VITALS: PULSE 124
--- NOTE | 2020-12-21 08:47 | PCM.HP.2 ---
H&P History of Present Illness - General Date of Service: 12/20/20 Admit Problem/Dx: Admission Diagnosis/Problem Admission Diagnosis/Problem Pneumonia Source of Information: Patient, Family, Jail Records, Old Records, Provider (Deyvi Jacobsen PA-C (ED provider)), RN, RN Notes Reviewed, Significant Other History Limitations: Reports: No Limitations - History of Present Illness Initial Comments - Free Text/Narative: Mrs. Barry is a 80yoF resident of [facility] with a history significant for atrial fibrillation on chronic anticoagulation, HTN, and listed history of COPD but prior PFT with only mild restrictive defect, and recent evaluation in the clinic and treatment for pneumonia who presented to the ED today for evaluation for recurrent and progressive shortness of breath. Was seen on 12/09/20 at [facility] by HONEY Morales, for complaints of shortness of breath and intermittent hypoxia. Diagnosed with pneumonia for which treatment with levofloxacin 750mg po daily for 5 days was given. Also was prescribed DuoNebs prn. Reported that she had improvement in pulmonary status until the last 1-2 days when she began having recurrent shortness of breath. Due to the worsening in status, she was transported by EMS to the ED. She was placed on nonrebreather mask en route for oxygen saturations in the 70s without oxygen. In the ED, she was initially noted to have BP 87/51 and was given NS 500cc bolus with improvement in her BPs to the 100-110s systolic. She was also given a DuoNeb and ED provider stated that she had improvement in respirations into the 20s. Lab (CBC, CMP, BNP, lactic acid) and normal except WBC 14 with 90% neutrophils, albumin 2.44, and BNP 260. CXR was reported as "Extensive bilateral pneumonia." Oxygen requirement decreased to 5lpm via nasal cannula and I was called for admission around 1300. When inquiring about respiratory status, ED provider Deyvi Jacobsen PA-C, reported that she was breathing comfortably and that oxygen saturations were at 100% currently on 5lpm. After reviewing laboratory and imaging results with him, I accepted for admission, but requested an INR and procalcitonin be added onto her labs already obtained and she be given vancomycin and levofloxacin 750mg IV. - Related Data Allergies/Adverse Reactions: Allergies Allergy/AdvReac Type Severity Reaction Status Date / Time budesonide [From Pulmicort] Allergy Nausea Verified 12/20/20 14:45 cephalexin Allergy Diarrhea Verified 12/20/20 14:45 methocarbamol [From Robaxin] Allergy Rash Verified 12/20/20 14:45 nitrofurantoin Allergy Hives Verified 12/20/20 14:45 macrocrystalline [From Macrodantin] penicillin V Allergy Hives Verified 12/20/20 14:45 sulfamethoxazole Allergy Diarrhea Verified 12/20/20 14:45 [From Bactrim] trimethoprim [From Bactrim] Allergy Diarrhea Verified 12/20/20 14:45 Home Medications: Home Meds Alendronate Sodium [Fosamax] 70 mg PO SA 09/01/15 [History] Phytonadione [Vitamin K] 100 mcg PO 1800 09/01/15 [History] Pravastatin [Pravachol] 20 mg PO BEDTIME 09/01/15 [History] carBAMazepine [Carbamazepine] 200 mg PO WITHBREAKFAST 09/01/15 [History] carBAMazepine [Carbamazepine] 400 mg PO BEDTIME 09/01/15 [History] Bisacodyl [Dulcolax] 5 mg PO DAILY 06/17/16 [History] Cholecalciferol (Vitamin D3) [Vitamin D3] 2,000 unit PO DAILY 06/17/16 [History] Multivitamin with Minerals [Multiple Vitamin] 1 tab PO DAILY 06/17/16 [History] Warfarin [Coumadin] 7.5 mg PO MO@1800 06/17/16 [History] Iron Ps Complex/B12/Folic Acid [Poly-Iron 150 Forte] 150 mg PO DAILY@1200 01/10/17 [History] Losartan [Cozaar] 100 mg PO DAILY 03/19/19 [History] Albuterol Sulfate [Albuterol Sulfate Hfa] 1 - 2 puff IH Q4H PRN 05/31/19 [History] Cetirizine HCl [Zyrtec] 10 mg PO DAILY 05/31/19 [History] Montelukast Sodium [Singulair] 10 mg PO BEDTIME 05/31/19 [History] Saliva Stimulant Comb. No.5 [Salivasure] 1 each MM Q2H PRN 05/31/19 [History] Umeclidinium Brm/Vilanterol Tr [Anoro Ellipta 62.5-25 MCG] 1 inh IH DAILY 05/31/19 [History] Warfarin [Coumadin] 5 mg PO SUTUWETHFRSA@18 05/31/19 [History] amLODIPine Besylate [Norvasc] 5 mg PO DAILY 05/31/19 [History] cloNIDine HCL [Catapres] 0.2 mg PO BID@08,18 05/31/19 [History] atenoloL [Atenolol] 50 mg PO DAILY #0 06/01/19 [Rx] Acetaminophen 1,000 mg PO BID 12/20/20 [History] Acetaminophen 325 mg PO Q4H PRN 12/20/20 [History] Calcium Carbonate/Vitamin D3 [Calcium 600-Vit D3 800 Tablet] 1 each PO DAILY 12/20/20 [History] Escitalopram Oxalate 10 mg PO DAILY 12/20/20 [History] Magnesium Hydroxide [Milk of Magnesia] 30 ml PO DAILY PRN 12/20/20 [History] Menthol/Zinc Oxide [Calmoseptine] 1 applic TOP QID PRN 12/20/20 [History] Nystatin 1 applic TOP BID PRN 12/20/20 [History] Sodium Chloride [Saline Nasal Curtis] 2 spray NASBOTH Q12H PRN 12/20/20 [History] guaiFENesin/Dextromethorphan [Safetussin DM] 10 ml PO Q4H PRN 12/20/20 [History] lidocaine HCL [Aspercreme Lidocaine] 1 applic TOP BID PRN 12/20/20 [History] lidocaine HCL [Aspercreme Lidocaine] 1 applic TOP TID@07,1330,20 12/20/20 [History] traZODone 50 mg PO BEDTIME 12/20/20 [History] Past Medical History HEENT History: Reports: Impaired Vision Cardiovascular History: Reports: Afib, High Cholesterol, Hypertension Respiratory History: Reports: Asthma Gastrointestinal History: Reports: Chronic Constipation, GERD Genitourinary History: Reports: UTI, 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 - Past Surgical History Head Surgeries/Procedures: Reports: None HEENT Surgical History: Reports: Tonsillectomy Cardiovascular Surgical History: Reports: None GI Surgical History: Reports: Cholecystectomy, Colonoscopy Female Surgical History: Reports: Section Musculoskeletal Surgical History: Reports: Knee Replacement Social & Family History - Family History HEENT: Reports: None Cardiac: Reports: High Cholesterol, Hypertension Respiratory: Reports: None GI: Reports: None : Reports: None OBGYN: Reports: None Musculoskeletal: Reports: None Neurological: Reports: None Psychiatric: Reports: Other (See Below) Endocrine/Metabolic: Reports: Diabetes, type II Hematologic: Reports: None Immunologic: Reports: None Dermatologic: Reports: None Oncologic: Reports: None - Tobacco Use Tobacco Use Status *Q: Never Tobacco User Second Hand Smoke Exposure: No - Caffeine Use Caffeine Use: Reports: Coffee, Soda - Recreational Drug Use Recreational Drug Use: No H&P Review of Systems - Review of Systems: Review Of Systems: See Below General: Reports: Fatigue. Denies: Fever, Chills HEENT: Denies: Headaches, Rhinitis, Sinus Congestion Pulmonary: Reports: Shortness of Breath, Cough. Denies: Wheezing, Pleuritic Ch est Pain, Sputum, Hemoptysis Cardiovascular: Denies: Chest Pain, Palpitations, Edema Gastrointestinal: Denies: Abdominal Pain, Constipation, Diarrhea, Vomiting Genitourinary: Denies: Dysuria, Burning, Pain Musculoskeletal: Denies: Neck Pain, Back Pain Skin: Denies: Cyanosis, Rash, Wound Psychiatric: Reports: Confusion, Anxiety, Agitation Neurological: Denies: Headache, Numbness, Tingling Exam - Exam Exam: See Below - Vital Signs Vital Signs: Last Vital Signs Temp 36.6 C 12/20/20 13:58 Pulse 124 H 12/20/20 18:00 Resp 48 H 12/20/20 18:00 BP 136/88 12/20/20 16:51 Pulse Ox 79 L 12/20/20 18:00 Weight: 82.735 kg - Exam Physical Exam Comments:: GENERAL: Elderly white female with tachypnea but no other current increased work of breathing lying in hospital bed. HEENT: Normocephalic, atraumatic. Conjunctiva clear. Mucous membranes moist, posterior pharynx unremarkable. NECK: Supple, no masses. Trachea midline. CV: Irregularly irregular, no murmurs, rubs, or gallops. 2+ radial pulses. PULMONARY: Bilateral bases with rhonchi R>L, no wheezes. ABDOMEN: Positive bowel sounds, soft, nontender, nondistended. EXTREMITIES: No edema, cyanosis, or clubbing. MUSCULOSKELETAL: Moves all extremities well. NEUROLOGICAL: No obvious deficits. DERMATOLOGIC: No rashes or suspicious lesions in exposed areas. PSYCHIATRIC: Alert, interactive, decreased insight at baseline from prior visits, anxious affect. - Patient Data Lab Results Last 24 hrs: Laboratory Results - last 24 hr 12/20/20 12/20/20 12/20/20 Range/Units 10:30 10:30 10:40 WBC 14.29 H (5.00-10.00) 10^3/uL RBC 3.23 L (3.80-5.50) 10^6/uL Hgb 11.4 L D (12.0-16.0) g/dL Hct 34.4 L (37.0-47.0) % MCV 106.5 H D (82.0-92.0) fL MCH 35.3 H (27.0-31.0) pg MCHC 33.1 (32.0-36.0) g/dL RDW 14.2 (11.5-14.5) % Plt Count 281 (150-400) 10^3/uL MPV 9.8 (7.4-10.4) fL Immature Gran % (Auto) 0.3 (0.0-5.0) % Neut % (Auto) 89.8 H (50.0-70.0) % Lymph % (Auto) 3.8 L (20.0-40.0) % Lumpkin % (Auto) 5.7 (2.0-8.0) % Eos % (Auto) 0.1 L (1.0-3.0) % Baso % (Auto) 0.3 (0.0-1.0) % Neut # (Auto) 12.82 H (2.50-7.00) 10^3/uL Lymph # (Auto) 0.54 L (1.00-4.00) 10^3/uL Lumpkin # (Auto) 0.82 H (0.10-0.80) 10^3/uL Eos # (Auto) 0.02 L (0.10-0.30) 10^3/uL Baso # (Auto) 0.05 (0.00-0.10) 10^3/uL Immature Gran # (Auto) 0.04 (0.00-0.50) 10^3/uL PT (9.2-11.2) SEC INR (0.9-1.1) ABG pH (7.35-7.45) ABG pCO2 (35-45) mmHG ABG pO2 (80-105) mmHG ABG HCO3 (22-26) mmol/L ABG Total CO2 (23-27) mmol/L ABG O2 Saturation (95-98) % ABG Base Excess (-2-3) mmol/L O2 Delivery Device Sodium 137 (136-145) mmol/L Potassium 3.5 (3.5-5.1) mmol/L Chloride 99 (98-107) mmol/L Carbon Dioxide 29.6 (21.0-32.0) mmol/L Anion Gap 11.9 (5-15) mmol/L BUN 9 (7-18) mg/dL Creatinine 0.49 L (0.51-1.17) mg/dL Est Cr Clr Drug Dosing TNP Estimated GFR (MDRD) > 60 mL/min Glucose 172 H (70-140) mg/dL Lactic Acid 1.8 (0.4-2.0) mmol/L Calcium 8.3 L (8.7-10.3) mg/dL Magnesium (1.8-2.4) mg/dL Total Bilirubin 0.8 (0.2-1.0) mg/dL AST 21 (15-37) U/L ALT 14 (14-63) U/L Alkaline Phosphatase 103 (46-116) U/L Troponin I (0.000-0.056) ng/mL C-Reactive Protein (0.0-0.9) mg/dL B-Natriuretic Peptide (0-100) pg/mL Total Protein 7.4 (6.4-8.2) g/dL Albumin 2.44 L (3.40-5.00) g/dL Procalcitonin ng/mL SARS CoV-2 RNA Rapid ELÍAS (NEGATIVE) 12/20/20 12/20/20 12/20/20 Range/Units 10:44 10:44 12:22 WBC (5.00-10.00) 10^3/uL RBC (3.80-5.50) 10^6/uL Hgb (12.0-16.0) g/dL Hct (37.0-47.0) % MCV (82.0-92.0) fL MCH (27.0-31.0) pg MCHC (32.0-36.0) g/dL RDW (11.5-14.5) % Plt Count (150-400) 10^3/uL MPV (7.4-10.4) fL Immature Gran % (Auto) (0.0-5.0) % Neut % (Auto) (50.0-70.0) % Lymph % (Auto) (20.0-40.0) % Lumpkin % (Auto) (2.0-8.0) % Eos % (Auto) (1.0-3.0) % Baso % (Auto) (0.0-1.0) % Neut # (Auto) (2.50-7.00) 10^3/uL Lymph # (Auto) (1.00-4.00) 10^3/uL Lumpkin # (Auto) (0.10-0.80) 10^3/uL Eos # (Auto) (0.10-0.30) 10^3/uL Baso # (Auto) (0.00-0.10) 10^3/uL Immature Gran # (Auto) (0.00-0.50) 10^3/uL PT 67.6 H (9.2-11.2) SEC INR 7.0 H* (0.9-1.1) ABG pH (7.35-7.45) ABG pCO2 (35-45) mmHG ABG pO2 (80-105) mmHG ABG HCO3 (22-26) mmol/L ABG Total CO2 (23-27) mmol/L ABG O2 Saturation (95-98) % ABG Base Excess (-2-3) mmol/L O2 Delivery Device Sodium (136-145) mmol/L Potassium (3.5-5.1) mmol/L Chloride (98-107) mmol/L Carbon Dioxide (21.0-32.0) mmol/L Anion Gap (5-15) mmol/L BUN (7-18) mg/dL Creatinine (0.51-1.17) mg/dL Est Cr Clr Drug Dosing Estimated GFR (MDRD) mL/min Glucose (70-140) mg/dL Lactic Acid (0.4-2.0) mmol/L Calcium (8.7-10.3) mg/dL Magnesium (1.8-2.4) mg/dL Total Bilirubin (0.2-1.0) mg/dL AST (15-37) U/L ALT (14-63) U/L Alkaline Phosphatase (46-116) U/L Troponin I (0.000-0.056) ng/mL C-Reactive Protein (0.0-0.9) mg/dL B-Natriuretic Peptide 260 H (0-100) pg/mL Total Protein (6.4-8.2) g/dL Albumin (3.40-5.00) g/dL Procalcitonin <0.05 ng/mL SARS CoV-2 RNA Rapid ELÍAS (NEGATIVE) 12/20/20 12/20/20 12/20/20 Range/Units 15:12 17:55 17:55 WBC 13.82 H (5.00-10.00) 10^3/uL RBC 3.41 L (3.80-5.50) 10^6/uL Hgb 12.0 (12.0-16.0) g/dL Hct 36.6 L (37.0-47.0) % MCV 107.3 H (82.0-92.0) fL MCH 35.2 H (27.0-31.0) pg MCHC 32.8 (32.0-36.0) g/dL RDW 14.2 (11.5-14.5) % Plt Count 287 (150-400) 10^3/uL MPV 9.8 (7.4-10.4) fL Immature Gran % (Auto) 0.3 (0.0-5.0) % Neut % (Auto) 84.5 H (50.0-70.0) % Lymph % (Auto) 5.4 L (20.0-40.0) % Lumpkin % (Auto) 7.9 (2.0-8.0) % Eos % (Auto) 1.5 (1.0-3.0) % Baso % (Auto) 0.4 (0.0-1.0) % Neut # (Auto) 11.67 H (2.50-7.00) 10^3/uL Lymph # (Auto) 0.75 L (1.00-4.00) 10^3/uL Lumpkin # (Auto) 1.09 H (0.10-0.80) 10^3/uL Eos # (Auto) 0.21 (0.10-0.30) 10^3/uL Baso # (Auto) 0.06 (0.00-0.10) 10^3/uL Immature Gran # (Auto) 0.04 (0.00-0.50) 10^3/uL PT (9.2-11.2) SEC INR (0.9-1.1) ABG pH 7.54 H (7.35-7.45) ABG pCO2 34 L (35-45) mmHG ABG pO2 41 L* (80-105) mmHG ABG HCO3 29.0 H (22-26) mmol/L ABG Total CO2 28 H (23-27) mmol/L ABG O2 Saturation 83 L (95-98) % ABG Base Excess 6 H (-2-3) mmol/L O2 Delivery Device Hi flow nasal cannu Sodium (136-145) mmol/L Potassium (3.5-5.1) mmol/L Chloride (98-107) mmol/L Carbon Dioxide (21.0-32.0) mmol/L Anion Gap (5-15) mmol/L BUN (7-18) mg/dL Creatinine (0.51-1.17) mg/dL Est Cr Clr Drug Dosing Estimated GFR (MDRD) mL/min Glucose (70-140) mg/dL Lactic Acid (0.4-2.0) mmol/L Calcium (8.7-10.3) mg/dL Magnesium (1.8-2.4) mg/dL Total Bilirubin (0.2-1.0) mg/dL AST (15-37) U/L ALT (14-63) U/L Alkaline Phosphatase (46-116) U/L Troponin I (0.000-0.056) ng/mL C-Reactive Protein (0.0-0.9) mg/dL B-Natriuretic Peptide (0-100) pg/mL Total Protein (6.4-8.2) g/dL Albumin (3.40-5.00) g/dL Procalcitonin ng/mL SARS CoV-2 RNA Rapid ELÍAS Negative (NEGATIVE) 12/20/20 12/20/20 12/20/20 Range/Units 17:55 17:55 17:55 WBC (5.00-10.00) 10^3/uL RBC (3.80-5.50) 10^6/uL Hgb (12.0-16.0) g/dL Hct (37.0-47.0) % MCV (82.0-92.0) fL MCH (27.0-31.0) pg MCHC (32.0-36.0) g/dL RDW (11.5-14.5) % Plt Count (150-400) 10^3/uL MPV (7.4-10.4) fL Immature Gran % (Auto) (0.0-5.0) % Neut % (Auto) (50.0-70.0) % Lymph % (Auto) (20.0-40.0) % Lumpkin % (Auto) (2.0-8.0) % Eos % (Auto) (1.0-3.0) % Baso % (Auto) (0.0-1.0) % Neut # (Auto) (2.50-7.00) 10^3/uL Lymph # (Auto) (1.00-4.00) 10^3/uL Lumpkin # (Auto) (0.10-0.80) 10^3/uL Eos # (Auto) (0.10-0.30) 10^3/uL Baso # (Auto) (0.00-0.10) 10^3/uL Immature Gran # (Auto) (0.00-0.50) 10^3/uL PT 71.1 H (9.2-11.2) SEC INR 7.4 H* (0.9-1.1) ABG pH (7.35-7.45) ABG pCO2 (35-45) mmHG ABG pO2 (80-105) mmHG ABG HCO3 (22-26) mmol/L ABG Total CO2 (23-27) mmol/L ABG O2 Saturation (95-98) % ABG Base Excess (-2-3) mmol/L O2 Delivery Device Sodium 139 (136-145) mmol/L Potassium 3.8 (3.5-5.1) mmol/L Chloride 101 (98-107) mmol/L Carbon Dioxide 27.5 (21.0-32.0) mmol/L Anion Gap 14.3 (5-15) mmol/L BUN 9 (7-18) mg/dL Creatinine 0.49 L (0.51-1.17) mg/dL Est Cr Clr Drug Dosing 87.15 Estimated GFR (MDRD) > 60 mL/min Glucose 134 (70-140) mg/dL Lactic Acid 1.9 (0.4-2.0) mmol/L Calcium 8.5 L (8.7-10.3) mg/dL Magnesium 1.9 (1.8-2.4) mg/dL Total Bilirubin 0.9 (0.2-1.0) mg/dL AST 22 (15-37) U/L ALT 11 L (14-63) U/L Alkaline Phosphatase 110 (46-116) U/L Troponin I < 0.017 (0.000-0.056) ng/mL C-Reactive Protein 27.2 H (0.0-0.9) mg/dL B-Natriuretic Peptide (0-100) pg/mL Total Protein 7.9 (6.4-8.2) g/dL Albumin 2.46 L (3.40-5.00) g/dL Procalcitonin ng/mL SARS CoV-2 RNA Rapid ELÍAS (NEGATIVE) Result Diagrams: 12/20/20 17:55 12/20/20 17:55 Sepsis Event Note - Evaluation Sepsis Screening Result: No Definite Risk Problem List Initiated/Reviewed/Updated: Yes Orders Last 24hrs: Active Orders 24 hr Category Date Time Status Patient Status [ADT] Routine ADT 12/20/20 13:58 Active Chest 1V Frontal [CR] Routine Exams 12/20/20 19:30 Ordered CBC WITH AUTO DIFF [HEME] Routine Lab 12/20/20 17:55 Results SEDIMENTATION RATE AUTO [HEME] Routine Lab 12/20/20 17:55 Results VANCOMYCIN TROUGH [CHEM] Timed Lab 12/23/20 12:00 Ordered EKG 12 Lead [EK] Stat Ther 12/20/20 10:40 Ordered Assessment/Plan Comment:: Mrs. Barry is a 80yoF resident of [facility] with a history significant for atrial fibrillation on chronic anticoagulation, HTN, and listed history of COPD but prior PFT with only mild restrictive defect, and recent evaluation in the clinic and treatment for pneumonia who presented to the ED today for evaluation for recurrent and progressive shortness of breath. Was seen on 12/09/20 at [facility] by HONEY Morales, for complaints of shortness of breath and intermittent hypoxia. Diagnosed with pneumonia for which treatment with levofloxacin 750mg po daily for 5 days was given. Also was prescribed DuoNebs prn. Reported that she had improvement in pulmonary status until the last 1-2 days when she began having recurrent shortness of breath. Due to the worsening in status, she was transported by EMS to the ED. She was placed on nonrebreather mask en route for oxygen saturations in the 70s without oxygen. In the ED, she was initially noted to have BP 87/51 and was given NS 500cc bolus with improvement in her BPs to the 100-110s systolic. She was also given a DuoNeb and ED provider stated that she had improvement in respirations into the 20s. Lab (CBC, CMP, BNP, lactic acid) and normal except WBC 14 with 90% neutrophils, albumin 2.44, and BNP 260. CXR was reported as "Extensive bilateral pneumonia." Oxygen requirement decreased to 5lpm via nasal cannula and I was called for admission around 1300. When inquiring about respiratory status, ED provider Deyvi Jacobsen PA-C, reported that she was breathing comfortably and that oxygen saturations were at 100% currently on 5lpm. After reviewing laboratory and imaging results with him, I accepted for admission, but requested an INR and procalcitonin be added onto her labs already obtained and she be given vancomycin and levofloxacin 750mg IV. INR subsequently noted to be 7.0, but verified with staff the lack of any known bleeding. I was called around 1645 by nursing staff reporting a significant increase in work of breathing and decrease in oxygen saturations requiring 10lpm. I arrived at bedside at approximately 1700, noting saturations in the high 80s on 15lpm via HFNC, BP 136/85, pulse 85, and RR 28. Nursing reported that she tolerated the mask poorly due to anxiety and was switched to HFNC with improved results. She is communicative and answering questions appropriately albeit at her baseline status with some degree of cognitive impairment and limited insight. She reports that she has had a dry cough the last couple days again and shortness of breath, but otherwise has been feeling well. She denies any current pain or complaints other than her shortness of breath. ABG and repeat labs ordered. BiPAP also initiated. Patient's current code status documents from the SNF report full code with wishes for CPR, but without mention of intubation wishes. No other advanced directives or POLST on file. She reported to nursing staff in the ED that she wished to be a full code and then between 1645 and 1700 stated that she didn't want to have "a tube to breath." Discussed with ED provider who stated he did not address her code status with her or . Detailed discussion about code status and wishes for intubation had with patient who just repeats that she is anxious and doesn't know what to do. , Humberto Rai", called and updated with patient status and attempt to elucidate wishes; despite a lengthy conversation, he notably did not understand the seriousness of the situation and wished to have me call back later, but after much encouragement agreed to call a friend to bring him back to the hospital. Transferred him to the patient's room and in conversation with the patient and with myself and nurse at bedside, they stated that they wished for her to be intubated if absolutely necessary. ABG 7.54/34/41-29. Repeat labs with ongoing leukocytosis, but otherwise unremarkable CBC. CMP/Mg with normal electrolytes, renal function, and normal hepatic testing. Lactate remains normal at 1.9. Troponin normal. Upon independent review of CXR, concern for ARDS especially given clinical situation. DDx of worsening acute hypoxemic respiratory failure and ARDS continued to favor pneumonia/infection. Reassuring VS without tachycardia or hypotension. Gave furosemide 20mg IV in the event any degree of heart failure is playing a role with the mildly elevated BNP, though lower likelihood given no other hi story or exam evidence to suggest fluid overload. Low likelihood of PE given supratherapeutic INR. Low likelihood of reactive/obstructive disease exacerbation given review of prior PFTs is actually restrictive pattern and current status without any wheezing. Discussed patient care with [facility] watchmaking teacher Dr. Harper who accepted for admission following intubation prior to transport. Patient's and friend Abraham arrived at bedside and updated with status of ongoing hypoxia despite BiPAP and other trialed interventions and allowed for a few moments with the patient prior to intubation. Patient was intubated without difficulty, see procedure note. EMS arrived just prior to intubation and patient was discharged in critical condition. Admission/discharge problems: # Acute hypoxemic respiratory failure # Bilateral pneumonia # ARDS # Restrictive lung disease # Supratherapeutic INR Chronic, stable conditions: # Seizure disorder # Atrial fibrillation # Hypertension # Hyperlipidemia # Osteoporosis # Allergic rhinitis # Anxiety # Insomnia # Cognitive impairment Billing notes: This is a same day admission/discharge. Due to the severe nature of the patient illness as manifested by respiratory system failure and high likelihood of deterioration and life threatening disease, I spend a total [id number] of critical care time with this patient for evaluation, assessment, and management of the above problems which included: chart review, physical examination, discussing with nursing, respiratory therapists, and other physicians while formulating, executing and following a management plan, all while immediately available to the patient. This does not include procedure time. - Mortality Measure Prognosis:: Poor
--- NOTE | 2020-12-21 08:48 | PCM.DCSUM1 ---
Discharge Summary - Hospital Course Free Text/Narrative:: Same day admission/discharge. See H&P for details. - Discharge Data Discharge Date: 12/20/20 Discharge Disposition: DC/Tfer to Acute Hospital 02 Condition: Critical - Referral to Home Health Primary Care Physician: Adonis Zuniga PA-C - Discharge Plan *PRESCRIPTION DRUG MONITORING PROGRAM REVIEWED*: Not Applicable *COPY OF PRESCRIPTION DRUG MONITORING REPORT IN PATIENT HORACIO: Not Applicable Home Medications: Home Meds Alendronate Sodium [Fosamax] 70 mg PO SA 09/01/15 [History] Phytonadione [Vitamin K] 100 mcg PO 1800 09/01/15 [History] Pravastatin [Pravachol] 20 mg PO BEDTIME 09/01/15 [History] carBAMazepine [Carbamazepine] 200 mg PO WITHBREAKFAST 09/01/15 [History] carBAMazepine [Carbamazepine] 400 mg PO BEDTIME 09/01/15 [History] Bisacodyl [Dulcolax] 5 mg PO DAILY 06/17/16 [History] Cholecalciferol (Vitamin D3) [Vitamin D3] 2,000 unit PO DAILY 06/17/16 [History] Multivitamin with Minerals [Multiple Vitamin] 1 tab PO DAILY 06/17/16 [History] Warfarin [Coumadin] 7.5 mg PO MO@1800 06/17/16 [History] Iron Ps Complex/B12/Folic Acid [Poly-Iron 150 Forte] 150 mg PO DAILY@1200 01/10/17 [History] Losartan [Cozaar] 100 mg PO DAILY 03/19/19 [History] Albuterol Sulfate [Albuterol Sulfate Hfa] 1 - 2 puff IH Q4H PRN 05/31/19 [Hist ory] Cetirizine HCl [Zyrtec] 10 mg PO DAILY 05/31/19 [History] Montelukast Sodium [Singulair] 10 mg PO BEDTIME 05/31/19 [History] Saliva Stimulant Comb. No.5 [Salivasure] 1 each MM Q2H PRN 05/31/19 [History] Umeclidinium Brm/Vilanterol Tr [Anoro Ellipta 62.5-25 MCG] 1 inh IH DAILY 05/31/19 [History] Warfarin [Coumadin] 5 mg PO SUTUWETHFRSA@18 05/31/19 [History] amLODIPine Besylate [Norvasc] 5 mg PO DAILY 05/31/19 [History] cloNIDine HCL [Catapres] 0.2 mg PO BID@08,18 05/31/19 [History] atenoloL [Atenolol] 50 mg PO DAILY #0 06/01/19 [Rx] Acetaminophen 1,000 mg PO BID 12/20/20 [History] Acetaminophen 325 mg PO Q4H PRN 12/20/20 [History] Calcium Carbonate/Vitamin D3 [Calcium 600-Vit D3 800 Tablet] 1 each PO DAILY 12/20/20 [History] Escitalopram Oxalate 10 mg PO DAILY 12/20/20 [History] Magnesium Hydroxide [Milk of Magnesia] 30 ml PO DAILY PRN 12/20/20 [History] Menthol/Zinc Oxide [Calmoseptine] 1 applic TOP QID PRN 12/20/20 [History] Nystatin 1 applic TOP BID PRN 12/20/20 [History] Sodium Chloride [Saline Nasal [place]] 2 spray NASBOTH Q12H PRN 12/20/20 [History] guaiFENesin/Dextromethorphan [Safetussin DM] 10 ml PO Q4H PRN 12/20/20 [History] lidocaine HCL [Aspercreme Lidocaine] 1 applic TOP BID PRN 12/20/20 [History] lidocaine HCL [Aspercreme Lidocaine] 1 applic TOP TID@07,1330,20 12/20/20 [History] traZODone 50 mg PO BEDTIME 12/20/20 [History] - Discharge Summary/Plan Comment DC Time >30 min.: Yes (Same day admission/discharge.) - Patient Data Vitals - Most Recent: Last Vital Signs Temp 36.6 C 12/20/20 13:58 Pulse 124 H 12/20/20 18:00 Resp 48 H 12/20/20 18:00 BP 136/88 12/20/20 16:51 Pulse Ox 79 L 12/20/20 18:00 Weight - Most Recent: 82.735 kg I&O - Last 24 hours: Intake & Output 12/20/20 12/21/20 12/21/20 22:59 06:59 14:59 Intake Total 739 Balance 739 Lab Results - Last 24 hrs: Laboratory Results - last 24 hr 12/20/20 12/20/20 12/20/20 Range/Units 10:30 10:30 10:40 WBC 14.29 H (5.00-10.00) 10^3/uL RBC 3.23 L (3.80-5.50) 10^6/uL Hgb 11.4 L D (12.0-16.0) g/dL Hct 34.4 L (37.0-47.0) % MCV 106.5 H D (82.0-92.0) fL MCH 35.3 H (27.0-31.0) pg MCHC 33.1 (32.0-36.0) g/dL RDW 14.2 (11.5-14.5) % Plt Count 281 (150-400) 10^3/uL MPV 9.8 (7.4-10.4) fL Immature Gran % (Auto) 0.3 (0.0-5.0) % Neut % (Auto) 89.8 H (50.0-70.0) % Lymph % (Auto) 3.8 L (20.0-40.0) % Brown % (Auto) 5.7 (2.0-8.0) % Eos % (Auto) 0.1 L (1.0-3.0) % Baso % (Auto) 0.3 (0.0-1.0) % Neut # (Auto) 12.82 H (2.50-7.00) 10^3/uL Lymph # (Auto) 0.54 L (1.00-4.00) 10^3/uL Brown # (Auto) 0.82 H (0.10-0.80) 10^3/uL Eos # (Auto) 0.02 L (0.10-0.30) 10^3/uL Baso # (Auto) 0.05 (0.00-0.10) 10^3/uL Immature Gran # (Auto) 0.04 (0.00-0.50) 10^3/uL PT (9.2-11.2) SEC INR (0.9-1.1) ABG pH (7.35-7.45) ABG pCO2 (35-45) mmHG ABG pO2 (80-105) mmHG ABG HCO3 (22-26) mmol/L ABG Total CO2 (23-27) mmol/L ABG O2 Saturation (95-98) % ABG Base Excess (-2-3) mmol/L O2 Delivery Device Sodium 137 (136-145) mmol/L Potassium 3.5 (3.5-5.1) mmol/L Chloride 99 (98-107) mmol/L Carbon Dioxide 29.6 (21.0-32.0) mmol/L Anion Gap 11.9 (5-15) mmol/L BUN 9 (7-18) mg/dL Creatinine 0.49 L (0.51-1.17) mg/dL Est Cr Clr Drug Dosing TNP Estimated GFR (MDRD) > 60 mL/min Glucose 172 H (70-140) mg/dL Lactic Acid 1.8 (0.4-2.0) mmol/L Calcium 8.3 L (8.7-10.3) mg/dL Magnesium (1.8-2.4) mg/dL Total Bilirubin 0.8 (0.2-1.0) mg/dL AST 21 (15-37) U/L ALT 14 (14-63) U/L Alkaline Phosphatase 103 (46-116) U/L Troponin I (0.000-0.056) ng/mL C-Reactive Protein (0.0-0.9) mg/dL B-Natriuretic Peptide (0-100) pg/mL Total Protein 7.4 (6.4-8.2) g/dL Albumin 2.44 L (3.40-5.00) g/dL Procalcitonin ng/mL SARS CoV-2 RNA Rapid ELÍAS (NEGATIVE) 12/20/20 12/20/20 12/20/20 Range/Units 10:44 10:44 12:22 WBC (5.00-10.00) 10^3/uL RBC (3.80-5.50) 10^6/uL Hgb (12.0-16.0) g/dL Hct (37.0-47.0) % MCV (82.0-92.0) fL MCH (27.0-31.0) pg MCHC (32.0-36.0) g/dL RDW (11.5-14.5) % Plt Count (150-400) 10^3/uL MPV (7.4-10.4) fL Immature Gran % (Auto) (0.0-5.0) % Neut % (Auto) (50.0-70.0) % Lymph % (Auto) (20.0-40.0) % Brown % (Auto) (2.0-8.0) % Eos % (Auto) (1.0-3.0) % Baso % (Auto) (0.0-1.0) % Neut # (Auto) (2.50-7.00) 10^3/uL Lymph # (Auto) (1.00-4.00) 10^3/uL Brown # (Auto) (0.10-0.80) 10^3/uL Eos # (Auto) (0.10-0.30) 10^3/uL Baso # (Auto) (0.00-0.10) 10^3/uL Immature Gran # (Auto) (0.00-0.50) 10^3/uL PT 67.6 H (9.2-11.2) SEC INR 7.0 H* (0.9-1.1) ABG pH (7.35-7.45) ABG pCO2 (35-45) mmHG ABG pO2 (80-105) mmHG ABG HCO3 (22-26) mmol/L ABG Total CO2 (23-27) mmol/L ABG O2 Saturation (95-98) % ABG Base Excess (-2-3) mmol/L O2 Delivery Device Sodium (136-145) mmol/L Potassium (3.5-5.1) mmol/L Chloride (98-107) mmol/L Carbon Dioxide (21.0-32.0) mmol/L Anion Gap (5-15) mmol/L BUN (7-18) mg/dL Creatinine (0.51-1.17) mg/dL Est Cr Clr Drug Dosing Estimated GFR (MDRD) mL/min Glucose (70-140) mg/dL Lactic Acid (0.4-2.0) mmol/L Calcium (8.7-10.3) mg/dL Magnesium (1.8-2.4) mg/dL Total Bilirubin (0.2-1.0) mg/dL AST (15-37) U/L ALT (14-63) U/L Alkaline Phosphatase (46-116) U/L Troponin I (0.000-0.056) ng/mL C-Reactive Protein (0.0-0.9) mg/dL B-Natriuretic Peptide 260 H (0-100) pg/mL Total Protein (6.4-8.2) g/dL Albumin (3.40-5.00) g/dL Procalcitonin <0.05 ng/mL SARS CoV-2 RNA Rapid ELÍAS (NEGATIVE) 12/20/20 12/20/20 12/20/20 Range/Units 15:12 17:55 17:55 WBC 13.82 H (5.00-10.00) 10^3/uL RBC 3.41 L (3.80-5.50) 10^6/uL Hgb 12.0 (12.0-16.0) g/dL Hct 36.6 L (37.0-47.0) % MCV 107.3 H (82.0-92.0) fL MCH 35.2 H (27.0-31.0) pg MCHC 32.8 (32.0-36.0) g/dL RDW 14.2 (11.5-14.5) % Plt Count 287 (150-400) 10^3/uL MPV 9.8 (7.4-10.4) fL Immature Gran % (Auto) 0.3 (0.0-5.0) % Neut % (Auto) 84.5 H (50.0-70.0) % Lymph % (Auto) 5.4 L (20.0-40.0) % Brown % (Auto) 7.9 (2.0-8.0) % Eos % (Auto) 1.5 (1.0-3.0) % Baso % (Auto) 0.4 (0.0-1.0) % Neut # (Auto) 11.67 H (2.50-7.00) 10^3/uL Lymph # (Auto) 0.75 L (1.00-4.00) 10^3/uL Brown # (Auto) 1.09 H (0.10-0.80) 10^3/uL Eos # (Auto) 0.21 (0.10-0.30) 10^3/uL Baso # (Auto) 0.06 (0.00-0.10) 10^3/uL Immature Gran # (Auto) 0.04 (0.00-0.50) 10^3/uL PT (9.2-11.2) SEC INR (0.9-1.1) ABG pH 7.54 H (7.35-7.45) ABG pCO2 34 L (35-45) mmHG ABG pO2 41 L* (80-105) mmHG ABG HCO3 29.0 H (22-26) mmol/L ABG Total CO2 28 H (23-27) mmol/L ABG O2 Saturation 83 L (95-98) % ABG Base Excess 6 H (-2-3) mmol/L O2 Delivery Device Hi flow nasal cannu Sodium (136-145) mmol/L Potassium (3.5-5.1) mmol/L Chloride (98-107) mmol/L Carbon Dioxide (21.0-32.0) mmol/L Anion Gap (5-15) mmol/L BUN (7-18) mg/dL Creatinine (0.51-1.17) mg/dL Est Cr Clr Drug Dosing Estimated GFR (MDRD) mL/min Glucose (70-140) mg/dL Lactic Acid (0.4-2.0) mmol/L Calcium (8.7-10.3) mg/dL Magnesium (1.8-2.4) mg/dL Total Bilirubin (0.2-1.0) mg/dL AST (15-37) U/L ALT (14-63) U/L Alkaline Phosphatase (46-116) U/L Troponin I (0.000-0.056) ng/mL C-Reactive Protein (0.0-0.9) mg/dL B-Natriuretic Peptide (0-100) pg/mL Total Protein (6.4-8.2) g/dL Albumin (3.40-5.00) g/dL Procalcitonin ng/mL SARS CoV-2 RNA Rapid ELÍAS Negative (NEGATIVE) 12/20/20 12/20/20 12/20/20 Range/Units 17:55 17:55 17:55 WBC (5.00-10.00) 10^3/uL RBC (3.80-5.50) 10^6/uL Hgb (12.0-16.0) g/dL Hct (37.0-47.0) % MCV (82.0-92.0) fL MCH (27.0-31.0) pg MCHC (32.0-36.0) g/dL RDW (11.5-14.5) % Plt Count (150-400) 10^3/uL MPV (7.4-10.4) fL Immature Gran % (Auto) (0.0-5.0) % Neut % (Auto) (50.0-70.0) % Lymph % (Auto) (20.0-40.0) % Brown % (Auto) (2.0-8.0) % Eos % (Auto) (1.0-3.0) % Baso % (Auto) (0.0-1.0) % Neut # (Auto) (2.50-7.00) 10^3/uL Lymph # (Auto) (1.00-4.00) 10^3/uL Brown # (Auto) (0.10-0.80) 10^3/uL Eos # (Auto) (0.10-0.30) 10^3/uL Baso # (Auto) (0.00-0.10) 10^3/uL Immature Gran # (Auto) (0.00-0.50) 10^3/uL PT 71.1 H (9.2-11.2) SEC INR 7.4 H* (0.9-1.1) ABG pH (7.35-7.45) ABG pCO2 (35-45) mmHG ABG pO2 (80-105) mmHG ABG HCO3 (22-26) mmol/L ABG Total CO2 (23-27) mmol/L ABG O2 Saturation (95-98) % ABG Base Excess (-2-3) mmol/L O2 Delivery Device Sodium 139 (136-145) mmol/L Potassium 3.8 (3.5-5.1) mmol/L Chloride 101 (98-107) mmol/L Carbon Dioxide 27.5 (21.0-32.0) mmol/L Anion Gap 14.3 (5-15) mmol/L BUN 9 (7-18) mg/dL Creatinine 0.49 L (0.51-1.17) mg/dL Est Cr Clr Drug Dosing 87.15 Estimated GFR (MDRD) > 60 mL/min Glucose 134 (70-140) mg/dL Lactic Acid 1.9 (0.4-2.0) mmol/L Calcium 8.5 L (8.7-10.3) mg/dL Magnesium 1.9 (1.8-2.4) mg/dL Total Bilirubin 0.9 (0.2-1.0) mg/dL AST 22 (15-37) U/L ALT 11 L (14-63) U/L Alkaline Phosphatase 110 (46-116) U/L Troponin I < 0.017 (0.000-0.056) ng/mL C-Reactive Protein 27.2 H (0.0-0.9) mg/dL B-Natriuretic Peptide (0-100) pg/mL Total Protein 7.9 (6.4-8.2) g/dL Albumin 2.46 L (3.40-5.00) g/dL Procalcitonin ng/mL SARS CoV-2 RNA Rapid ELÍAS (NEGATIVE) Med Orders - Current: Current Medications Discontinued Medications Albuterol/Ipratropium (Albuterol/Ipratropium 3.0-0.5 Mg/3 Ml Neb Soln) 3 ml NEB ONETIME ONE Stop: 12/20/20 10:40 Last Admin: 12/20/20 10:55 Dose: 3 ml Documented by: Albuterol/Ipratropium (Albuterol/Ipratropium 3.0-0.5 Mg/3 Ml Neb Soln) 3 ml NEB ONETIME ONE Stop: 12/20/20 17:51 Last Admin: 12/20/20 17:52 Dose: 3 ml Documented by: Etomidate (Etomidate 2 Mg/Ml 20 Ml Sdv) 20 mg IVPUSH ONETIME ONE Stop: 12/20/20 19:26 Last Admin: 12/20/20 19:10 Dose: 20 mg Documented by: Furosemide (Furosemide 40 Mg/4 Ml Vial) Confirm Administered Dose 40 mg .ROUTE .STK-MED ONE Stop: 12/20/20 17:42 Last Admin: 12/20/20 17:46 Dose: Not Given Documented by: Furosemide (Furosemide 40 Mg/4 Ml Vial) 20 mg IVPUSH NOW ONE Stop: 12/20/20 17:46 Last Admin: 12/20/20 17:49 Dose: 20 mg Documented by: Sodium Chloride (Normal Saline) 1,000 mls @ 100 mls/hr IV ASDIRECTED [facility] Last Admin: 12/20/20 10:50 Dose: 100 mls/hr Documented by: Vancomycin HCl 1 gm/ Sodium (Chloride) 250 mls @ 167 mls/hr IV Q24H [facility] Last Admin: 12/20/20 12:43 Dose: 167 mls/hr Documented by: Levofloxacin/Dextrose 500 mg/ (Premix) 100 mls @ 100 mls/hr IV Q24H [facility] Last Admin: 12/20/20 15:26 Dose: Not Given Documented by: Levofloxacin/Dextrose 250 mg/ (Premix) 50 mls @ 50 mls/hr IV Q24H [facility] Last Admin: 12/20/20 15:26 Dose: Not Given Documented by: Levofloxacin/Dextrose 500 mg/ (Premix) 100 mls @ 100 mls/hr IV Q24H [facility] Last Admin: 12/20/20 15:36 Dose: 100 mls/hr Documented by: Levofloxacin/Dextrose 250 mg/ (Premix) 50 mls @ 50 mls/hr IV Q24H [facility] Last Admin: 12/20/20 16:45 Dose: 50 mls/hr Documented by: Lorazepam (Lorazepam 2 Mg/Ml Sdv) 0.5 mg IVPUSH ONETIME ONE Stop: 12/20/20 18:03 Last Admin: 12/20/20 18:13 Dose: 0.5 mg Documented by: Succinylcholine Chloride (Succinylcholine 200 Mg/10 Ml Mdv) 100 mg IV ONETIME ONE Stop: 12/20/20 19:26 Last Admin: 12/20/20 19:10 Dose: 100 mg Documented by: Vancomycin HCl (Pharmacy To Dose - Vancomycin) 0 dose .XX DAILY [facility]
--- NOTE | 2020-12-21 08:48 | PCM.PRNOTE ---
- Free Text/Narrative Note: PROCEDURE PERFORMED: Endotracheal Intubation INDICATIONS FOR PROCEDURE: Respiratory Failure CONSENT: Informed consent was obtained prior to the procedure after the risks, benefits, alternatives and expected outcomes were discussed with the patient and . The patient and concurred with the proposed plan, giving informed consent. PROCEDURAL PAUSE: Completed ANESTHESIA: 20 mg of etomidate 100 mg of succinylcholine DESCRIPTION OF PROCEDURE: After obtaining appropriate sedation the glidescope was inserted into the patient's airway taking careful note to avoid applying significant pressure to the patient's teeth/gums. The vocal cords were visualized as the epiglottis was displaced with the glidescope blade, and a 7.5 mm endotracheal tube with stylet in place was advanced through the cords and into the trachea. The stylet was removed. Appropriate position was confirmed by direct visualization, end-tidal carbon dioxide detection, bilateral breath sounds, and cuff was inflated, and the endotracheal tube was secured in place measuring 22 cm at the teeth. A stat portable chest x-ray was obtained to confirm proper placement. Endotracheal tube was advanced to 23 cm at the teeth with more appropriate positioning confirmed with repeat portable chest x-ray. COMPLICATIONS: None POST PROCEDURE CONDITION: Critical
--- NOTE | 2020-12-23 08:33 | CR ---
[id number] RAD/RAD Chest PA or AP 1V EXAM: RAD Chest PA or AP 1V INDICATION: POST INTUBATION. COMPARISON: December 20, 2020. DISCUSSION: Endotracheal tube in place, tip 38 mm above the tiki. Extensive bilateral parenchymal opacities. Findings have increased since examination from same date at 1049 hours. No pneumothorax. IMPRESSION: As above. Deyvi Tan MD 12/23/20 0832 Thank you for allowing us to participate in the care of your patient.
== END 2020-12-20 19:35 | DRG 193 ==
LOC: KA.ED 10:22 → UNDOADMIN 13:25 → KA.MS 13:25
PROVIDERS: ADMIT Physician Assistant; ATTEND Family Medicine
PROC: 5A0935A Assistance with Respiratory Ventilation, Less than 24 Consecutive Hours, High Flow/Velocity Cannula (ICD-10-PCS; principal; 2020-12-20)
DX: J18.9 Pneumonia, unspecified organism (principal); J80 Acute respiratory distress syndrome; D72.828 Other elevated white blood cell count; R09.02 Hypoxemia; R06.82 Tachypnea, not elsewhere classified; J44.0 Chronic obstructive pulmonary disease with (acute) lower respiratory infection; I48.91 Unspecified atrial fibrillation; H54.7 Unspecified visual loss; E78.00 Pure hypercholesterolemia, unspecified; J45.909 Unspecified asthma, uncomplicated; I10 Essential (primary) hypertension; K59.09 Other constipation; Z96.659 Presence of unspecified artificial knee joint; K21.9 Gastro-esophageal reflux disease without esophagitis; Z90.49 Acquired absence of other specified parts of digestive tract; M19.90 Unspecified osteoarthritis, unspecified site; G89.29 Other chronic pain; M54.9 Dorsalgia, unspecified; E61.1 Iron deficiency; F41.9 Anxiety disorder, unspecified; Z88.1 Allergy status to other antibiotic agents; Z88.0 Allergy status to penicillin; Z88.2 Allergy status to sulfonamides; Z88.8 Allergy status to other drugs, medicaments and biological substances; Z79.01 Long term (current) use of anticoagulants; Z79.899 Other long term (current) drug therapy; Z20.822 Contact with and (suspected) exposure to COVID-19
CPT/HCPCS: 36415; 36600; 71045; 80053; 82803; 83605; 83735; 83880; 84145; 84484; 85025; 85610; 85652; 86140; 93005; 94660; 96365; 99284; 99285-25; J0330; J1940; J1956; J2060; J3370; J3490; J7030; J7050; J7620-GY; U0002